=== PATIENT | female | born 1950 | race Caucasian/White ===

== ENCOUNTER 2018-02-05 16:04 | Emergency (ER) | payer MEDICARE, OTHER ==
[~2018-02-05] VITALS: Ht 165.1 cm; Wt 74.0 kg
[~2018-02-05 16:04] MED LIST: ASPI-1265 PO; CARV6.253 PO; DILT120C51 PO; FURO40TA4 PO; HYDR-4070 PO; ISOS30TA6 PO; MECL-111 PO; NITR0.4T48 SL; OMEP40CA37 PO; ONDA4TAB12 PO; ONDA8TAB6 PO; OXYB10TA4 PO; SOLI10TA2 PO; SYN0.0125T PO; WARF-65 PO
[2018-02-05 16:58] LABS: BASOPHILS # (AUTO) 0.1 X10'3 (0-0.2); BASOPHILS % (AUTO) 1.3 % (0-1); EOSINOPHILS # (AUTO) 0.4 X10'3 (0-0.9); EOSINOPHILS % (AUTO) 5.2 % (0-6); HEMATOCRIT 37.9 % (35.0-45.0); LYMPHOCYTES # (AUTO) 1.5 X10'3 (1.1-4.8); LYMPHOCYTES % (AUTO) 17.5 % (21-51); MEAN CORPUSCULAR HEMOGLOBIN 23.9 PG (27.0-31.0); MEAN CORPUSCULAR HGB CONC 31.7 % (33.0-36.5); MEAN CORPUSCULAR VOLUME 75.3 FL (78-98); MEAN PLATELET VOLUME 9.1 FL (7.4-10.4); MONOCYTES # (AUTO) 1.2 X10'3 (0-0.9); MONOCYTES % (AUTO) 14.1 % (2-12); NEUTROPHILS # (AUTO) 5.2 X10'3 (1.8-7.7); NEUTROPHILS % (AUTO) 61.9 % (42-75); PLATELET COUNT 277 X10'3 (140-440); RED BLOOD COUNT 5.03 X10'6 (4.20-5.60); RED CELL DISTRIBUTION WIDTH 16.1 % (11.5-14.5); WHITE BLOOD COUNT 8.4 X10'3 (4.5-11.0)
[2018-02-05 17:08] LABS: INR 1.1 INR; PARTIAL THROMBOPLASTIN TIME 27 SECONDS (22-32); PROTHROMBIN TIME 11.4 SECONDS (9.0-12.0)
[2018-02-05 17:14] LABS: ALANINE AMINOTRANSFERASE 18 U/L (12-78); ALBUMIN 3.2 G/DL (3.4-5.0); ALBUMIN/GLOBULIN RATIO 0.7 (1.1-1.5); ALKALINE PHOSPHATASE 109 IU/L (46-116); ANION GAP 9 (8-16); ASPARTATE AMINO TRANSFERASE 19 U/L (10-37); BILIRUBIN,TOTAL 0.4 MG/DL (0.1-1.0); BLOOD UREA NITROGEN 18 MG/DL (7-18); BUN/CREATININE RATIO 11.3 (6.6-38.0); CALCIUM 8.4 MG/DL (8.5-10.1); CHLORIDE 103 MMOL/L (99-107); GLUCOSE 107 MG/DL (70-104); POTASSIUM 4.5 MMOL/L (3.5-5.1); SODIUM 136 MMOL/L (135-145); TOTAL CARBON DIOXIDE 24.5 MMOL/L (24-32); TOTAL PROTEIN 7.5 G/DL (6.4-8.2); eGFR 32 ML/MIN
[2018-02-05 17:37] VITALS: BP 157/88
== END 2018-02-05 20:43 | disposition home or self-care (01) ==
LOC: ER 16:05
DX: R55 Syncope and collapse (principal); R42 Dizziness and giddiness; R53.1 Weakness; I25.10 Atherosclerotic heart disease of native coronary artery without angina pectoris; I11.0 Hypertensive heart disease with heart failure; I50.9 Heart failure, unspecified; E78.00 Pure hypercholesterolemia, unspecified; I25.2 Old myocardial infarction; J45.909 Unspecified asthma, uncomplicated; E03.9 Hypothyroidism, unspecified; Z86.718 Personal history of other venous thrombosis and embolism; Z86.73 Personal history of transient ischemic attack (TIA), and cerebral infarction without residual deficits; Z85.3 Personal history of malignant neoplasm of breast; Z98.61 Coronary angioplasty status; Z95.1 Presence of aortocoronary bypass graft; Z98.890 Other specified postprocedural states; Z95.0 Presence of cardiac pacemaker; Z88.1 Allergy status to other antibiotic agents; Z88.0 Allergy status to penicillin; Z88.8 Allergy status to other drugs, medicaments and biological substances; Z79.82 Long term (current) use of aspirin; Z79.01 Long term (current) use of anticoagulants; Z79.899 Other long term (current) drug therapy
CPT/HCPCS: 36415; 71045; 80053; 84484; 85025; 85610; 85730; 93005; 99285

== ENCOUNTER 2018-03-15 10:47 | Emergency (ER) | payer MEDICARE, OTHER ==
[~2018-03-15] VITALS: Ht 165.1 cm; Wt 155.0 kg
[2018-03-15 11:15] LABS: BASOPHILS % (AUTO) 0.3 % (0-1); EOSINOPHILS # (AUTO) 0.1 X10'3 (0-0.9); EOSINOPHILS % (AUTO) 1.2 % (0-6); HEMATOCRIT 37.6 % (35.0-45.0); HEMOGLOBIN 12.4 g/dl (12.0-16.0); LYMPHOCYTES % (AUTO) 15.3 % (21-51); MEAN CORPUSCULAR HEMOGLOBIN 24.8 PG (27.0-31.0); MEAN CORPUSCULAR HGB CONC 32.9 % (33.0-36.5); MEAN CORPUSCULAR VOLUME 75.3 FL (78-98); MEAN PLATELET VOLUME 8.5 FL (7.4-10.4); MONOCYTES # (AUTO) 1.4 X10'3 (0-0.9); MONOCYTES % (AUTO) 10.9 % (2-12); NEUTROPHILS # (AUTO) 9.3 X10'3 (1.8-7.7); NEUTROPHILS % (AUTO) 72.3 % (42-75); PLATELET COUNT 260 X10'3 (140-440); RED BLOOD COUNT 4.99 X10'6 (4.20-5.60); WHITE BLOOD COUNT 12.9 X10'3 (4.5-11.0)
[2018-03-15 11:25] LABS: INR 3.2 INR; PARTIAL THROMBOPLASTIN TIME 37 SECONDS (22-32); PROTHROMBIN TIME 32.2 SECONDS (9.0-12.0)
[2018-03-15 11:29] LABS: ALANINE AMINOTRANSFERASE 18 U/L (12-78); ALBUMIN 3.3 G/DL (3.4-5.0); ALBUMIN/GLOBULIN RATIO 0.8 (1.1-1.5); ALKALINE PHOSPHATASE 105 IU/L (46-116); ANION GAP 9 (8-16); ASPARTATE AMINO TRANSFERASE 10 U/L (10-37); BILIRUBIN,TOTAL 0.4 MG/DL (0.1-1.0); BLOOD UREA NITROGEN 28 MG/DL (7-18); BUN/CREATININE RATIO 21.5 (6.6-38.0); CALCIUM 8.4 MG/DL (8.5-10.1); CHLORIDE 105 MMOL/L (99-107); GLUCOSE 93 MG/DL (70-104); POTASSIUM 3.3 MMOL/L (3.5-5.1); SODIUM 139 MMOL/L (135-145); TOTAL CARBON DIOXIDE 25.1 MMOL/L (24-32); TOTAL PROTEIN 7.4 G/DL (6.4-8.2); eGFR 41 ML/MIN
[2018-03-15 11:36] LABS: PLATELET ESTIMATE NORMAL
[2018-03-15 11:37] LABS: ANISOCYTOSIS 2+
[2018-03-15] MEDS ORDERED: furosemide 10 MG/1 ML 10ml inj IV ONE (15:05)
[2018-03-15] MEDS ORDERED: potassium chloride 8mEq ER tablet PO ONE (15:05)
[2018-03-15 15:26] VITALS: BP 188/97
[2018-03-15] MEDS ORDERED: AZIT250T83 PO (15:40)
== END 2018-03-15 15:56 | disposition home or self-care (01) ==
LOC: ER 10:48
DX: R07.89 Other chest pain (principal); I11.0 Hypertensive heart disease with heart failure; I50.9 Heart failure, unspecified; I25.10 Atherosclerotic heart disease of native coronary artery without angina pectoris; E78.00 Pure hypercholesterolemia, unspecified; I25.2 Old myocardial infarction; E03.9 Hypothyroidism, unspecified; Z86.718 Personal history of other venous thrombosis and embolism; Z95.0 Presence of cardiac pacemaker; Z86.73 Personal history of transient ischemic attack (TIA), and cerebral infarction without residual deficits; Z95.1 Presence of aortocoronary bypass graft; J45.909 Unspecified asthma, uncomplicated; Z88.1 Allergy status to other antibiotic agents; Z88.0 Allergy status to penicillin; Z88.8 Allergy status to other drugs, medicaments and biological substances; Z79.82 Long term (current) use of aspirin
CPT/HCPCS: 36415; 71045; 80053; 83880; 84484; 85025; 85610; 85730; 93005; 96374; 99285; J1940

== ENCOUNTER 2018-05-27 05:16 | Inpatient (IN) | payer MEDICARE, OTHER ==
[~2018-05-27] VITALS: Ht 165.1 cm; Wt 70.9 kg
[2018-05-27 05:50] LABS: BASOPHILS % (AUTO) 0 % (0-1); EOSINOPHILS # (AUTO) 0.1 X10'3 (0-0.9); HEMATOCRIT 36.3 % (35.0-45.0); HEMOGLOBIN 11.7 g/dl (12.0-16.0); LYMPHOCYTES # (AUTO) 0.5 X10'3 (1.1-4.8); LYMPHOCYTES % (AUTO) 7.6 % (21-51); MEAN CORPUSCULAR HEMOGLOBIN 24.7 PG (27.0-31.0); MEAN CORPUSCULAR HGB CONC 32.2 % (33.0-36.5); MEAN CORPUSCULAR VOLUME 76.8 FL (78-98); MEAN PLATELET VOLUME 8.9 FL (7.4-10.4); MONOCYTES # (AUTO) 0.3 X10'3 (0-0.9); MONOCYTES % (AUTO) 4.1 % (2-12); NEUTROPHILS # (AUTO) 6.1 X10'3 (1.8-7.7); NEUTROPHILS % (AUTO) 87.3 % (42-75); PLATELET COUNT 216 X10'3 (140-440); RED BLOOD COUNT 4.72 X10'6 (4.20-5.60); RED CELL DISTRIBUTION WIDTH 17.8 % (11.5-14.5)
[2018-05-27 06:01] LABS: ALANINE AMINOTRANSFERASE 15 U/L (12-78); ALBUMIN 3.3 G/DL (3.4-5.0); ALBUMIN/GLOBULIN RATIO 0.8 (1.1-1.5); ALKALINE PHOSPHATASE 100 IU/L (46-116); ANION GAP 12 (8-16); ASPARTATE AMINO TRANSFERASE 14 U/L (10-37); BILIRUBIN,TOTAL 0.2 MG/DL (0.1-1.0); BLOOD UREA NITROGEN 35 MG/DL (7-18); BUN/CREATININE RATIO 19.7 (6.6-38.0); CALCIUM 9.1 MG/DL (8.5-10.1); CHLORIDE 105 MMOL/L (99-107); CREATININE 1.78 MG/DL (0.40-0.90); GLUCOSE 193 MG/DL (70-104); POTASSIUM 3.9 MMOL/L (3.5-5.1); SODIUM 138 MMOL/L (135-145); TOTAL CARBON DIOXIDE 21.2 MMOL/L (24-32); TOTAL PROTEIN 7.4 G/DL (6.4-8.2); eGFR 28 ML/MIN
[2018-05-27 06:10] LABS: INR 1.1 INR; PARTIAL THROMBOPLASTIN TIME 33 SECONDS (22-32); PROTHROMBIN TIME 11.3 SECONDS (9.0-12.0)
[2018-05-27] MEDS ORDERED: albuterol 2.5 mg/0.5ml nebule NEB ONE (06:20)
[2018-05-27] MEDS ORDERED: normal saline 1000ML IV soln IVB ONE (06:20)
[2018-05-27] MEDS ORDERED: methylPREDNISolone sod succ 125mg/2ml vial IV ONE (06:20)
[2018-05-27] MEDS ORDERED: albuterol 2.5 MG/3 ML nebule NEB ONE ×2 (06:55)
[2018-05-27] MEDS ORDERED: labetalol 20mg/4ml (5mg/ml) syringe IV ONE (07:35)
[2018-05-27] MEDS ORDERED: APIX5TAB3 PO (07:37)
[2018-05-27] MEDS ORDERED: ALBU8HFA PO (07:40)
[2018-05-27] MEDS ORDERED: PRED5TAB PO (07:40)
[2018-05-27] MEDS ORDERED: BECL7.3A INH (07:40)
[2018-05-27] MEDS ORDERED: LORazepam 2 mg/ml vial IV ONE (07:40)
[2018-05-27] MEDS ORDERED: magnesium Cl slow-release 64mg tablet PO PRN (08:00)
[2018-05-27] MEDS ORDERED: bisacodyl 10mg suppository rectal RC PRN (08:00)
[2018-05-27] MEDS ORDERED: magnesium hydroxide 30ml (MOM) UD suspension PO PRN (08:00)
[2018-05-27] MEDS ORDERED: potassium Cl 20 mEq SR tablet PO PRN ×2 (08:00)
[2018-05-27] MEDS ORDERED: ondansetron/PF 4mg/2ml inj IV PRN (08:00)
[2018-05-27] MEDS ORDERED: morphine 2 MG/ML inj. syringe IV PRN ×2 (08:00)
[2018-05-27] MEDS ORDERED: acetaminophen 325mg tablet PO PRN (08:00)
[2018-05-27] MEDS ORDERED: potassium Cl 40MEQ/NS 500ml 500 ML IV PRN ×2 (08:00)
[2018-05-27] MEDS: K and/or MAG REPLACEMENT MC SCH (08:00)
[2018-05-27] MEDS ORDERED: ondansetron 4mg rapidly disintigrating tab PO PRN (08:00)
[2018-05-27] MEDS ORDERED: magnesium 4gm in 100ml NS 100 ML IV PRN (08:00)
[2018-05-27] MEDS ORDERED: mag hydrox/Alum hydrox/simeth 30ml oral suspension PO PRN (08:00)
[2018-05-27] MEDS ORDERED: nitroGLYCERIN 0.4mg SUBLingual tab SL PRN (08:00)
[2018-05-27] MEDS ORDERED: hydrALAZINE 20mg/ml inj. IV PRN (08:05)
[2018-05-27] MEDS: BUDESONIDE 0.25 MG/2 ML AMPUL.NEB IH SCH ×2 (08:09→20:08)
[2018-05-27] MEDS ORDERED: albuterol 2.5 MG/3 ML nebule NEB PRN (08:10)
[2018-05-27] MEDS: aspirin 81mg tab.chew PO SCH (08:53)
[2018-05-27] MEDS: carvedilol 6.25mg tablet PO SCH ×2 (08:54→09:39)
[2018-05-27] MEDS: levoTHYROXINE 125mcg tablet PO SCH (08:54)
[2018-05-27] MEDS: isosorbide mononitrate 30mg tab.SR.24H PO SCH (08:54)
[2018-05-27] MEDS: furosemide 40mg tablet PO SCH (08:55)
[2018-05-27] MEDS: docusate sod 100mg capsule PO SCH ×2 (08:55→20:27)
[2018-05-27] MEDS: apixaban 5mg tablet PO SCH ×2 (08:56→20:27)
[2018-05-27] MEDS: doxycycline inj 100 MG in normal saline 100ml IV soln 100 ML IV SCH ×2 (09:04→20:30)
[2018-05-27] MEDS: diltiazem CD 120mg capsule (once-daily) PO SCH (09:43)
[2018-05-27] MEDS: ipratropium/albuterol 3ml nebule NEB SCH ×3 (11:00→23:20)
[2018-05-27 14:15] VITALS: BP 157/61
[2018-05-27] MEDS: methylPREDNISolone sod succ 125mg/2ml vial IV SCH ×2 (16:31→20:18)
[2018-05-27 18:00] VITALS: BP 145/62
[2018-05-27 22:00] VITALS: BP 129/45
[2018-05-28] MEDS: methylPREDNISolone sod succ 125mg/2ml vial IV SCH ×3 (02:31→16:17)
[2018-05-28] MEDS: ipratropium/albuterol 3ml nebule NEB SCH ×5 (03:21→22:46)
[2018-05-28 04:32] VITALS: BP 166/63
[2018-05-28 04:52] VITALS: BP 150/49
[2018-05-28 06:00] VITALS: BP 142/57
[2018-05-28] MEDS: BUDESONIDE 0.25 MG/2 ML AMPUL.NEB IH SCH ×2 (07:44→19:52)
[2018-05-28] MEDS: K and/or MAG REPLACEMENT MC SCH (08:00)
[2018-05-28 08:10] LABS: BASOPHILS % (AUTO) 0 % (0-1); EOSINOPHILS # (AUTO) 0.3 X10'3 (0-0.9); HEMATOCRIT 33.3 % (35.0-45.0); HEMOGLOBIN 10.9 g/dl (12.0-16.0); LYMPHOCYTES # (AUTO) 0.5 X10'3 (1.1-4.8); MEAN CORPUSCULAR HEMOGLOBIN 24.9 PG (27.0-31.0); MEAN CORPUSCULAR HGB CONC 32.7 % (33.0-36.5); MEAN CORPUSCULAR VOLUME 76.2 FL (78-98); MEAN PLATELET VOLUME 9.2 FL (7.4-10.4); MONOCYTES # (AUTO) 0.5 X10'3 (0-0.9); MONOCYTES % (AUTO) 3.2 % (2-12); NEUTROPHILS # (AUTO) 14.2 X10'3 (1.8-7.7); NEUTROPHILS % (AUTO) 91.8 % (42-75); PLATELET COUNT 195 X10'3 (140-440); RED BLOOD COUNT 4.37 X10'6 (4.20-5.60); RED CELL DISTRIBUTION WIDTH 17.5 % (11.5-14.5); WHITE BLOOD COUNT 15.4 X10'3 (4.5-11.0)
[2018-05-28 08:43] LABS: ALANINE AMINOTRANSFERASE 13 U/L (12-78); ALBUMIN/GLOBULIN RATIO 0.9 (1.1-1.5); ALKALINE PHOSPHATASE 82 IU/L (46-116); ANION GAP 12 (8-16); ASPARTATE AMINO TRANSFERASE 12 U/L (10-37); BILIRUBIN,TOTAL 0.3 MG/DL (0.1-1.0); BLOOD UREA NITROGEN 47 MG/DL (7-18); BUN/CREATININE RATIO 27.3 (6.6-38.0); CALCIUM 8.6 MG/DL (8.5-10.1); CHLORIDE 107 MMOL/L (99-107); CREATININE 1.72 MG/DL (0.40-0.90); GLUCOSE 224 MG/DL (70-104); MAGNESIUM 2.3 MG/DL (1.5-2.4); POTASSIUM 3.9 MMOL/L (3.5-5.1); SODIUM 139 MMOL/L (135-145); TOTAL CARBON DIOXIDE 20.4 MMOL/L (24-32); TOTAL PROTEIN 6.5 G/DL (6.4-8.2); eGFR 29 ML/MIN
[2018-05-28] MEDS: doxycycline inj 100 MG in normal saline 100ml IV soln 100 ML IV SCH ×2 (08:46→19:57)
[2018-05-28] MEDS: furosemide 40mg tablet PO SCH (08:47)
[2018-05-28] MEDS: isosorbide mononitrate 30mg tab.SR.24H PO SCH (08:47)
[2018-05-28] MEDS: apixaban 5mg tablet PO SCH ×2 (08:47→19:59)
[2018-05-28] MEDS: levoTHYROXINE 125mcg tablet PO SCH (08:47)
[2018-05-28] MEDS: carvedilol 6.25mg tablet PO SCH (08:47)
[2018-05-28] MEDS: docusate sod 100mg capsule PO SCH ×2 (08:47→19:59)
[2018-05-28] MEDS: diltiazem CD 120mg capsule (once-daily) PO SCH (08:48)
[2018-05-28] MEDS: aspirin 81mg tab.chew PO SCH (08:48)
[2018-05-28] MEDS: pantoprazole 40mg Tablet.DR PO SCH (08:48)
[2018-05-28 10:00] VITALS: BP 151/57
[2018-05-28] MEDS ORDERED: isosorbide mononitrate 30mg tab.SR.24H PO SCH (15:45)
[2018-05-28] MEDS ORDERED: benzocaine/menthol oral lozeng 1 EACH BOX MM PRN (17:35)
[2018-05-28] MEDS ORDERED: polyethylene glycol 3350 17gm powd pack PO PRN (17:35)
[2018-05-28 18:00] VITALS: BP 150/64
[2018-05-28] MEDS: carVEDilol 12.5mg tablet PO SCH (19:59)
[2018-05-28 22:00] VITALS: BP 144/53
[2018-05-29] VITALS (12 sets, daily range): BP systolic 136–169; BP diastolic 61–75
[2018-05-29] MEDS: methylPREDNISolone sod succ 125mg/2ml vial IV SCH ×2 (00:03→08:07)
[2018-05-29] MEDS: ipratropium/albuterol 3ml nebule NEB SCH ×6 (03:07→23:24)
[2018-05-29 05:44] LABS: BASOPHILS % (AUTO) 0 % (0-1); EOSINOPHILS # (AUTO) 0.2 X10'3 (0-0.9); EOSINOPHILS % (AUTO) 1.8 % (0-6); HEMATOCRIT 35.1 % (35.0-45.0); HEMOGLOBIN 11.3 g/dl (12.0-16.0); LYMPHOCYTES # (AUTO) 0.5 X10'3 (1.1-4.8); LYMPHOCYTES % (AUTO) 3.7 % (21-51); MEAN CORPUSCULAR HEMOGLOBIN 24.7 PG (27.0-31.0); MEAN CORPUSCULAR HGB CONC 32.3 % (33.0-36.5); MEAN CORPUSCULAR VOLUME 76.4 FL (78-98); MEAN PLATELET VOLUME 8.8 FL (7.4-10.4); MONOCYTES # (AUTO) 0.2 X10'3 (0-0.9); MONOCYTES % (AUTO) 1.5 % (2-12); NEUTROPHILS # (AUTO) 12.9 X10'3 (1.8-7.7); PLATELET COUNT 193 X10'3 (140-440); RED BLOOD COUNT 4.59 X10'6 (4.20-5.60); RED CELL DISTRIBUTION WIDTH 17.4 % (11.5-14.5); WHITE BLOOD COUNT 13.8 X10'3 (4.5-11.0)
[2018-05-29 06:04] LABS: ALANINE AMINOTRANSFERASE 13 U/L (12-78); ALBUMIN 2.9 G/DL (3.4-5.0); ALBUMIN/GLOBULIN RATIO 0.8 (1.1-1.5); ALKALINE PHOSPHATASE 79 IU/L (46-116); ANION GAP 10 (8-16); ASPARTATE AMINO TRANSFERASE 10 U/L (10-37); BILIRUBIN,TOTAL 0.3 MG/DL (0.1-1.0); BLOOD UREA NITROGEN 52 MG/DL (7-18); BUN/CREATININE RATIO 27.7 (6.6-38.0); CALCIUM 8.8 MG/DL (8.5-10.1); CHLORIDE 106 MMOL/L (99-107); CREATININE 1.88 MG/DL (0.40-0.90); GLUCOSE 180 MG/DL (70-104); MAGNESIUM 2.6 MG/DL (1.5-2.4); POTASSIUM 3.8 MMOL/L (3.5-5.1); SODIUM 139 MMOL/L (135-145); TOTAL CARBON DIOXIDE 23.5 MMOL/L (24-32); TOTAL PROTEIN 6.4 G/DL (6.4-8.2); eGFR 27 ML/MIN
[2018-05-29] MEDS: BUDESONIDE 0.25 MG/2 ML AMPUL.NEB IH SCH (07:07)
[2018-05-29] MEDS: carVEDilol 12.5mg tablet PO SCH ×2 (08:00→20:01)
[2018-05-29] MEDS: K and/or MAG REPLACEMENT MC SCH (08:00)
[2018-05-29] MEDS: isosorbide mononitrate 30mg tab.SR.24H PO SCH (08:00)
[2018-05-29] MEDS: docusate sod 100mg capsule PO SCH ×2 (08:07→20:00)
[2018-05-29] MEDS: aspirin 81mg tab.chew PO SCH (08:07)
[2018-05-29] MEDS: pantoprazole 40mg Tablet.DR PO SCH (08:07)
[2018-05-29] MEDS: levoTHYROXINE 125mcg tablet PO SCH (08:07)
[2018-05-29] MEDS: doxycycline inj 100 MG in normal saline 100ml IV soln 100 ML IV SCH ×2 (08:07→19:57)
[2018-05-29] MEDS: furosemide 40mg tablet PO SCH (08:08)
[2018-05-29] MEDS: apixaban 5mg tablet PO SCH ×2 (08:08→20:02)
[2018-05-29] MEDS: diltiazem CD 120mg capsule (once-daily) PO SCH (08:08)
[2018-05-29] MEDS ORDERED: regadenoson 0.4mg/5ml syringe IV ONE (10:35)
[2018-05-29] MEDS ORDERED: aminophylline 250mg/10ml inj. IV ONE (10:35)
[2018-05-29] MEDS ORDERED: aminophylline 250mg/10ml inj. IV PRN (10:36)
[2018-05-29] MEDS ORDERED: regadenoson 0.4mg/5ml syringe IV PRN (10:37)
[2018-05-29] MEDS: lactobacillus rhamnosus 10,000 MMU CELLS/CAPSULE PO SCH (20:02)
[2018-05-30] MEDS: ipratropium/albuterol 3ml nebule NEB SCH ×2 (03:00→08:27)
[2018-05-30 04:02] LABS: BASOPHILS % (AUTO) 0 % (0-1); EOSINOPHILS # (AUTO) 0.1 X10'3 (0-0.9); EOSINOPHILS % (AUTO) 1.1 % (0-6); HEMATOCRIT 37.8 % (35.0-45.0); HEMOGLOBIN 12.2 g/dl (12.0-16.0); LYMPHOCYTES # (AUTO) 0.5 X10'3 (1.1-4.8); LYMPHOCYTES % (AUTO) 4.7 % (21-51); MEAN CORPUSCULAR HEMOGLOBIN 24.5 PG (27.0-31.0); MEAN CORPUSCULAR HGB CONC 32.2 % (33.0-36.5); MEAN CORPUSCULAR VOLUME 76.1 FL (78-98); MONOCYTES # (AUTO) 0.4 X10'3 (0-0.9); MONOCYTES % (AUTO) 3.8 % (2-12); NEUTROPHILS # (AUTO) 9.1 X10'3 (1.8-7.7); NEUTROPHILS % (AUTO) 90.4 % (42-75); PLATELET COUNT 208 X10'3 (140-440); RED BLOOD COUNT 4.97 X10'6 (4.20-5.60); RED CELL DISTRIBUTION WIDTH 17.7 % (11.5-14.5); WHITE BLOOD COUNT 10.1 X10'3 (4.5-11.0)
[2018-05-30 04:11] LABS: ANION GAP 7 (8-16); BLOOD UREA NITROGEN 53 MG/DL (7-18); BUN/CREATININE RATIO 32.5 (6.6-38.0); CALCIUM 8.2 MG/DL (8.5-10.1); CHLORIDE 105 MMOL/L (99-107); CREATININE 1.63 MG/DL (0.40-0.90); GLUCOSE 166 MG/DL (70-104); MAGNESIUM 2.5 MG/DL (1.5-2.4); POTASSIUM 3.5 MMOL/L (3.5-5.1); SODIUM 140 MMOL/L (135-145); TOTAL CARBON DIOXIDE 27.7 MMOL/L (24-32); eGFR 31 ML/MIN
[2018-05-30 05:00] VITALS: BP 147/60
[2018-05-30] MEDS: levoTHYROXINE 125mcg tablet PO SCH (07:48)
[2018-05-30] MEDS: pantoprazole 40mg Tablet.DR PO SCH (07:48)
[2018-05-30] MEDS: apixaban 5mg tablet PO SCH (07:49)
[2018-05-30] MEDS: carVEDilol 12.5mg tablet PO SCH (07:49)
[2018-05-30] MEDS: aspirin 81mg tab.chew PO SCH (07:49)
[2018-05-30] MEDS: docusate sod 100mg capsule PO SCH (07:49)
[2018-05-30] MEDS: diltiazem CD 120mg capsule (once-daily) PO SCH (07:49)
[2018-05-30] MEDS: lactobacillus rhamnosus 10,000 MMU CELLS/CAPSULE PO SCH (07:49)
[2018-05-30 07:50] VITALS: BP 164/74
[2018-05-30] MEDS: isosorbide mononitrate 30mg tab.SR.24H PO SCH (07:50)
[2018-05-30] MEDS: furosemide 40mg tablet PO SCH (07:55)
[2018-05-30] MEDS: K and/or MAG REPLACEMENT MC SCH (07:57)
[2018-05-30] MEDS ORDERED: DOXYCYCLINE 100MG CAPSULE PO SCH (09:25)
[2018-05-30 10:00] VITALS: BP 143/61
[2018-05-30] MEDS ORDERED: PRED10TA23 PO (10:01)
[2018-05-30] MEDS ORDERED: DOXY-224 PO (10:01)
[2018-05-30] MEDS ORDERED: ISOS30TA6 PO (10:01)
[2018-05-30] MEDS ORDERED: CARV-50 PO (10:01)
== END 2018-05-30 11:38 | disposition home or self-care (01) | DRG 202 ==
LOC: ER 05:16 → ED HOLD 07:31 → EDBEDREQ 13:45 → ORTHO 4S 14:00
PROVIDERS: ADMIT Internal Medicine; ATTEND Hospitalist
PROC: 3E02340 Introduction of Influenza Vaccine into Muscle, Percutaneous Approach (ICD-10-PCS; principal; 2018-05-29)
PROC: 4A02XM4 Measurement of Cardiac Total Activity, External Approach (ICD-10-PCS; 2018-05-29)
PROC: 3E033HZ Introduction of Radioactive Substance into Peripheral Vein, Percutaneous Approach (ICD-10-PCS; 2018-05-29)
DX: J45.901 Unspecified asthma with (acute) exacerbation (principal); J44.0 Chronic obstructive pulmonary disease with (acute) lower respiratory infection; I13.0 Hypertensive heart and chronic kidney disease with heart failure and stage 1 through stage 4 chronic kidney disease, or unspecified chronic kidney disease; I50.32 Chronic diastolic (congestive) heart failure; N17.9 Acute kidney failure, unspecified; J44.1 Chronic obstructive pulmonary disease with (acute) exacerbation; E03.9 Hypothyroidism, unspecified; I73.9 Peripheral vascular disease, unspecified; E78.00 Pure hypercholesterolemia, unspecified; E78.5 Hyperlipidemia, unspecified; I25.10 Atherosclerotic heart disease of native coronary artery without angina pectoris; J20.9 Acute bronchitis, unspecified; N18.3 Chronic kidney disease, stage 3 (moderate); I25.2 Old myocardial infarction; Z95.0 Presence of cardiac pacemaker; Z95.5 Presence of coronary angioplasty implant and graft; Z23 Encounter for immunization; Z88.8 Allergy status to other drugs, medicaments and biological substances; Z88.0 Allergy status to penicillin; Z79.899 Other long term (current) drug therapy; Z79.01 Long term (current) use of anticoagulants; Z87.01 Personal history of pneumonia (recurrent); Z85.3 Personal history of malignant neoplasm of breast; Z86.711 Personal history of pulmonary embolism; Z86.718 Personal history of other venous thrombosis and embolism; Z86.73 Personal history of transient ischemic attack (TIA), and cerebral infarction without residual deficits; Z87.891 Personal history of nicotine dependence; Z82.3 Family history of stroke; Z82.49 Family history of ischemic heart disease and other diseases of the circulatory system
CPT/HCPCS: 36415; 71045; 71250; 78452; 80048; 80053; 83735; 83880; 84443; 84484; 85025; 85610; 85730; 87040; 87070; 93005; 93017; 93306; 94640; 94760; 96361; 96374; 99285; A9500; G0378; J2060; J2930; J3490; J7030; J7611

== ENCOUNTER 2018-09-30 11:15 | Outpatient (CLI) | payer MEDICARE, OTHER ==
[~2018-09-30 11:15] MED LIST changes: +ALBU8HFA PO; +APIX5TAB3 PO; +BECL7.3A INH; +CARV-50 PO; +DOXY-224 PO; -HYDR-4070 PO; -MECL-111 PO; -ONDA8TAB6 PO; -OXYB10TA4 PO; -SOLI10TA2 PO; -WARF-65 PO
[2018-09-30 12:39] LABS: ALBUMIN 3.2 G/DL (3.4-5.0); ANION GAP 8 (8-16); BLOOD UREA NITROGEN 26 MG/DL (7-18); BUN/CREATININE RATIO 19.5 (6.6-38.0); CALCIUM 9.2 MG/DL (8.5-10.1); CHLORIDE 107 MMOL/L (99-107); CREATININE 1.33 MG/DL (0.40-0.90); GLUCOSE 129 MG/DL (70-104); POTASSIUM 4.4 MMOL/L (3.5-5.1); SODIUM 140 MMOL/L (135-145); TOTAL CARBON DIOXIDE 25.5 MMOL/L (24-32); eGFR 39 ML/MIN
== END 2018-09-30 23:59 | disposition home or self-care (01) ==
LOC: LAB 11:15
PROVIDERS: ATTEND Internal Medicine Cardiovascular Disease
DX: R06.02 Shortness of breath (principal); I10 Essential (primary) hypertension; J45.909 Unspecified asthma, uncomplicated; Z87.891 Personal history of nicotine dependence
CPT/HCPCS: 36415; 80048; 83880

== ENCOUNTER 2018-10-14 03:29 | Inpatient (IN) | payer MEDICARE, OTHER ==
[~2018-10-14] VITALS: Ht 165.1 cm; Wt 77.4 kg
[2018-10-14] MEDS ORDERED: methylPREDNISolone sod succ 125mg/2ml vial IV ONE (03:35)
[2018-10-14] MEDS ORDERED: ipratropium/albuterol 3ml nebule NEB ONE (03:35)
[2018-10-14 04:02] LABS: BASOPHILS % (AUTO) 0.4 % (0-1); EOSINOPHILS % (AUTO) 0 % (0-6); HEMATOCRIT 36.6 % (35.0-45.0); HEMOGLOBIN 11.6 g/dl (12.0-16.0); LYMPHOCYTES # (AUTO) 0.5 X10'3 (1.1-4.8); LYMPHOCYTES % (AUTO) 5.6 % (21-51); MEAN CORPUSCULAR HEMOGLOBIN 24.7 PG (27.0-31.0); MEAN CORPUSCULAR HGB CONC 31.6 g/dL (33.0-36.5); MEAN CORPUSCULAR VOLUME 78.1 FL (78-98); MEAN PLATELET VOLUME 8.7 FL (7.4-10.4); MONOCYTES # (AUTO) 0.3 X10'3 (0-0.9); MONOCYTES % (AUTO) 2.9 % (2-12); NEUTROPHILS # (AUTO) 8.5 X10'3 (1.8-7.7); NEUTROPHILS % (AUTO) 91.1 % (42-75); PLATELET COUNT 204 X10'3 (140-440); RED BLOOD COUNT 4.69 X10'6 (4.20-5.60); RED CELL DISTRIBUTION WIDTH 18.1 % (11.5-14.5); WHITE BLOOD COUNT 9.3 X10'3 (4.5-11.0)
[2018-10-14 04:10] LABS: ALANINE AMINOTRANSFERASE 22 U/L (12-78); ALBUMIN 3.1 G/DL (3.4-5.0); ALBUMIN/GLOBULIN RATIO 0.9 (1.1-1.5); ALKALINE PHOSPHATASE 75 IU/L (46-116); ANION GAP 9 (8-16); ASPARTATE AMINO TRANSFERASE 14 U/L (10-37); BILIRUBIN,TOTAL 0.3 MG/DL (0.1-1.0); BLOOD UREA NITROGEN 27 MG/DL (7-18); BUN/CREATININE RATIO 23.9 (6.6-38.0); CALCIUM 8.7 MG/DL (8.5-10.1); CHLORIDE 107 MMOL/L (99-107); CREATININE 1.13 MG/DL (0.40-0.90); GLUCOSE 175 MG/DL (70-104); POTASSIUM 4.5 MMOL/L (3.5-5.1); SODIUM 139 MMOL/L (135-145); TOTAL CARBON DIOXIDE 22.8 MMOL/L (24-32); TOTAL PROTEIN 6.4 G/DL (6.4-8.2); eGFR 48 ML/MIN
[2018-10-14 04:13] LABS: PARTIAL THROMBOPLASTIN TIME 27 SECONDS (22-32)
[2018-10-14 04:17] LABS: MAGNESIUM 2.2 MG/DL (1.5-2.4)
[2018-10-14] MEDS ORDERED: azithromycin/NS 500mg/250ml 250 ML IV ONE (04:40)
[2018-10-14] MEDS ORDERED: HYDROcodone/acetaminophen 5mg/325mg tablet PO PRN (04:50)
[2018-10-14] MEDS ORDERED: magnesium 4gm in 100ml NS 100 ML IV PRN (04:50)
[2018-10-14] MEDS ORDERED: ondansetron/PF 4mg/2ml inj IV PRN (04:50)
[2018-10-14] MEDS ORDERED: magnesium Cl slow-release 64mg tablet PO PRN (04:50)
[2018-10-14] MEDS ORDERED: magnesium hydroxide 30ml (MOM) UD suspension PO PRN (04:50)
[2018-10-14] MEDS ORDERED: potassium Cl 40MEQ/NS 500ml 500 ML IV PRN ×2 (04:50)
[2018-10-14] MEDS ORDERED: magnesium 2GM in 50ml NS 50 ML IV PRN (04:50)
[2018-10-14] MEDS ORDERED: ipratropium/albuterol 3ml nebule NEB PRN (04:50)
[2018-10-14] MEDS ORDERED: HYDROcodone/acetaminophen 10/325mg tab PO PRN (04:50)
[2018-10-14] MEDS ORDERED: mag hydrox/Alum hydrox/simeth 30ml oral suspension PO PRN (04:50)
[2018-10-14] MEDS ORDERED: potassium Cl 20 mEq SR tablet PO PRN ×2 (04:50)
[2018-10-14] MEDS ORDERED: acetaminophen 325mg tablet PO PRN ×2 (04:50)
[2018-10-14] MEDS ORDERED: ISOS60TA4 PO (05:48)
[2018-10-14] MEDS ORDERED: PRAV20TA4 PO (05:52)
[2018-10-14] MEDS ORDERED: MIRA50TA PO (05:58)
[2018-10-14] MEDS ORDERED: PRIM250T48 (06:00)
[2018-10-14] MEDS ORDERED: PRIM50TA27 PO (07:33)
[2018-10-14] MEDS: ipratropium/albuterol 3ml nebule NEB SCH ×5 (07:52→23:36)
[2018-10-14] MEDS ORDERED: enoxaparin 40mg/0.4ml syringe SQ SCH (08:00)
[2018-10-14] MEDS: carVEDilol 12.5mg tablet PO SCH ×2 (08:05→20:59)
[2018-10-14] MEDS: aspirin 81mg tab.chew PO SCH (08:05)
[2018-10-14] MEDS: diltiazem CD 120mg capsule (once-daily) PO SCH (08:05)
[2018-10-14] MEDS: levoTHYROXINE 125mcg tablet PO SCH (08:05)
[2018-10-14] MEDS: methylPREDNISolone sod succ 125mg/2ml vial IV SCH ×3 (08:06→16:00)
[2018-10-14] MEDS: isosorbide mononitrate 30mg tab.SR.24H PO SCH (08:06)
[2018-10-14] MEDS: furosemide 40mg/4ml inj IV SCH ×2 (08:06→20:58)
[2018-10-14] MEDS: atorvastatin 10mg tablet PO SCH ×2 (08:08→21:00)
[2018-10-14] MEDS: K and/or MAG REPLACEMENT MC SCH (08:11)
[2018-10-14] MEDS: apixaban 5mg tablet PO SCH ×2 (09:46→21:00)
[2018-10-14] MEDS ORDERED: albuterol 2.5 MG/3 ML nebule NEB PRN (15:40)
[2018-10-14] MEDS ORDERED: hydrALAZINE 20mg/ml inj. IV PRN (15:45)
[2018-10-14 19:45] VITALS: BP 171/69
--- NOTE | 2018-10-14 19:45 | NUR ---
Received report from Prasad LINTON from ED. Patient brought up to floor via gurney. Patient able to transfer into bed with minimal help. Bed is locked & low, call light placed within reach.
[2018-10-14] MEDS ORDERED: temazepam 15mg capsule PO PRN (21:00)
[2018-10-14] MEDS: primidone 50mg tablet PO SCH (21:00)
[2018-10-14 22:00] VITALS: BP 204/74
[2018-10-15] MEDS: methylPREDNISolone sod succ 125mg/2ml vial IV SCH ×3 (00:11→17:52)
[2018-10-15 00:38] VITALS: BP 167/60
[2018-10-15] MEDS: ipratropium/albuterol 3ml nebule NEB SCH ×6 (03:36→23:01)
[2018-10-15 05:00] VITALS: BP 144/60
[2018-10-15] MEDS: azithromycin/NS 500mg/250ml 250 ML IV SCH (05:45)
--- NOTE | 2018-10-15 06:19 | NUR ---
Problems reprioritized. Patient report given, questions answered & plan of care reviewed with Lexi LINTON.
[2018-10-15 06:46] LABS: HEMATOCRIT 34.3 % (35.0-45.0); HEMOGLOBIN 11.3 g/dl (12.0-16.0); MEAN CORPUSCULAR HEMOGLOBIN 25.2 PG (27.0-31.0); MEAN CORPUSCULAR HGB CONC 32.9 g/dL (33.0-36.5); MEAN CORPUSCULAR VOLUME 76.5 FL (78-98); PLATELET COUNT 194 X10'3 (140-440); RED BLOOD COUNT 4.49 X10'6 (4.20-5.60); RED CELL DISTRIBUTION WIDTH 17.9 % (11.5-14.5)
[2018-10-15 06:59] LABS: ALBUMIN 2.9 G/DL (3.4-5.0); ANION GAP 9 (8-16); BLOOD UREA NITROGEN 44 MG/DL (7-18); BUN/CREATININE RATIO 27.8 (6.6-38.0); CALCIUM 8.7 MG/DL (8.5-10.1); CHLORIDE 103 MMOL/L (99-107); CREATININE 1.58 MG/DL (0.40-0.90); GLUCOSE 181 MG/DL (70-104); PHOSPHORUS 3.2 MG/DL (2.3-4.5); POTASSIUM 3.8 MMOL/L (3.5-5.1); SODIUM 138 MMOL/L (135-145); eGFR 32 ML/MIN
[2018-10-15] MEDS: K and/or MAG REPLACEMENT MC SCH (08:16)
[2018-10-15] MEDS: isosorbide mononitrate 30mg tab.SR.24H PO SCH (08:36)
[2018-10-15] MEDS: apixaban 5mg tablet PO SCH ×2 (08:37→19:58)
[2018-10-15] MEDS: diltiazem CD 120mg capsule (once-daily) PO SCH (08:37)
[2018-10-15] MEDS: levoTHYROXINE 125mcg tablet PO SCH (08:37)
[2018-10-15] MEDS: aspirin 81mg tab.chew PO SCH (08:37)
[2018-10-15] MEDS: carVEDilol 12.5mg tablet PO SCH ×2 (08:37→19:58)
[2018-10-15 10:00] VITALS: BP 151/62
[2018-10-15 18:00] VITALS: BP 132/55
--- NOTE | 2018-10-15 18:14 | NUR ---
Report to Janey LINTON
--- NOTE | 2018-10-15 18:35 | NUR ---
Patient in room ORTHO 4011. I have received report from DEVON LINTON and had the opportunity to ask questions and assume patient care.
[2018-10-15] MEDS: lactobacillus rhamnosus 10,000 MMU CELLS/CAPSULE PO SCH (19:58)
[2018-10-15] MEDS: atorvastatin 10mg tablet PO SCH (19:59)
[2018-10-15] MEDS: primidone 50mg tablet PO SCH (19:59)
[2018-10-15] MEDS ORDERED: furosemide 40mg tablet PO SCH (20:00)
[2018-10-15 22:00] VITALS: BP 155/64
[2018-10-16] MEDS: methylPREDNISolone sod succ 125mg/2ml vial IV SCH ×3 (00:21→18:57)
[2018-10-16] MEDS: ipratropium/albuterol 3ml nebule NEB SCH ×6 (03:00→23:49)
[2018-10-16 05:00] VITALS: BP 155/58
[2018-10-16 05:41] VITALS: BP 155/58
[2018-10-16 06:13] LABS: HEMOGLOBIN 11.4 g/dl (12.0-16.0); MEAN CORPUSCULAR HEMOGLOBIN 24.5 PG (27.0-31.0); MEAN CORPUSCULAR HGB CONC 31.7 g/dL (33.0-36.5); MEAN CORPUSCULAR VOLUME 77.4 FL (78-98); MEAN PLATELET VOLUME 8.8 FL (7.4-10.4); PLATELET COUNT 199 X10'3 (140-440); RED BLOOD COUNT 4.65 X10'6 (4.20-5.60); WHITE BLOOD COUNT 12.4 X10'3 (4.5-11.0)
[2018-10-16] MEDS: azithromycin/NS 500mg/250ml 250 ML IV SCH (06:26)
[2018-10-16 06:40] LABS: ALBUMIN 2.8 G/DL (3.4-5.0); ANION GAP 9 (8-16); BLOOD UREA NITROGEN 56 MG/DL (7-18); BUN/CREATININE RATIO 32.9 (6.6-38.0); CALCIUM 8.8 MG/DL (8.5-10.1); CHLORIDE 102 MMOL/L (99-107); GLUCOSE 205 MG/DL (70-104); MAGNESIUM 2.3 MG/DL (1.5-2.4); PHOSPHORUS 4.1 MG/DL (2.3-4.5); POTASSIUM 4.2 MMOL/L (3.5-5.1); SODIUM 136 MMOL/L (135-145); TOTAL CARBON DIOXIDE 25.4 MMOL/L (24-32); eGFR 30 ML/MIN
--- NOTE | 2018-10-16 06:44 | NUR ---
Problems reprioritized. Patient report given, questions answered & plan of care reviewed with DEVON LINTON.
[2018-10-16] MEDS: K and/or MAG REPLACEMENT MC SCH (08:00)
[2018-10-16] MEDS: carVEDilol 12.5mg tablet PO SCH ×2 (09:41→20:25)
[2018-10-16] MEDS: aspirin 81mg tab.chew PO SCH (09:41)
[2018-10-16] MEDS: isosorbide mononitrate 30mg tab.SR.24H PO SCH (09:41)
[2018-10-16] MEDS: diltiazem CD 120mg capsule (once-daily) PO SCH (09:41)
[2018-10-16] MEDS: levoTHYROXINE 125mcg tablet PO SCH (09:42)
[2018-10-16] MEDS: lactobacillus rhamnosus 10,000 MMU CELLS/CAPSULE PO SCH ×2 (09:42→20:25)
[2018-10-16] MEDS: apixaban 5mg tablet PO SCH ×2 (09:42→20:25)
[2018-10-16 10:00] VITALS: BP 174/68
[2018-10-16] MEDS ORDERED: fluticasone nasal spray 16GM bottle NS SCH (15:15)
[2018-10-16] MEDS ORDERED: salt irrigation nasal spray 45 ML SPRAY NS SCH (15:15)
[2018-10-16 18:00] VITALS: BP 156/76
--- NOTE | 2018-10-16 18:30 | NUR ---
PATIENT REPORT RECEIVED FROM DEVON LINTON.
[2018-10-16] MEDS: furosemide 40mg tablet PO SCH (20:25)
[2018-10-16] MEDS: primidone 50mg tablet PO SCH (20:25)
[2018-10-16] MEDS: atorvastatin 10mg tablet PO SCH (20:25)
[2018-10-16 22:00] VITALS: BP 162/62
[2018-10-17] MEDS: methylPREDNISolone sod succ 125mg/2ml vial IV SCH (02:52)
[2018-10-17] MEDS: ipratropium/albuterol 3ml nebule NEB SCH ×2 (03:00→09:46)
--- NOTE | 2018-10-17 05:26 | NUR ---
BP RECHECKED 154/60.
--- NOTE | 2018-10-17 06:34 | NUR ---
PATIENT REPORT GIVEN TO RAMANDEEP LINTON.
[2018-10-17 07:16] LABS: HEMATOCRIT 36.8 % (35.0-45.0); HEMOGLOBIN 11.7 g/dl (12.0-16.0); MEAN CORPUSCULAR HEMOGLOBIN 24.4 PG (27.0-31.0); MEAN CORPUSCULAR HGB CONC 31.8 g/dL (33.0-36.5); MEAN CORPUSCULAR VOLUME 76.8 FL (78-98); MEAN PLATELET VOLUME 9.2 FL (7.4-10.4); PLATELET COUNT 180 X10'3 (140-440); RED BLOOD COUNT 4.79 X10'6 (4.20-5.60); RED CELL DISTRIBUTION WIDTH 18.1 % (11.5-14.5); WHITE BLOOD COUNT 11.3 X10'3 (4.5-11.0)
[2018-10-17 07:28] LABS: ALBUMIN 2.8 G/DL (3.4-5.0); ANION GAP 8 (8-16); BLOOD UREA NITROGEN 57 MG/DL (7-18); BUN/CREATININE RATIO 36.3 (6.6-38.0); CALCIUM 8.3 MG/DL (8.5-10.1); CHLORIDE 102 MMOL/L (99-107); CREATININE 1.57 MG/DL (0.40-0.90); GLUCOSE 192 MG/DL (70-104); MAGNESIUM 2.4 MG/DL (1.5-2.4); PHOSPHORUS 4.1 MG/DL (2.3-4.5); POTASSIUM 3.5 MMOL/L (3.5-5.1); SODIUM 137 MMOL/L (135-145); TOTAL CARBON DIOXIDE 27.3 MMOL/L (24-32); eGFR 33 ML/MIN
[2018-10-17] MEDS ORDERED: azithromycin 250mg tablet PO SCH (08:00)
[2018-10-17] MEDS: lactobacillus rhamnosus 10,000 MMU CELLS/CAPSULE PO SCH (08:36)
[2018-10-17] MEDS: diltiazem CD 120mg capsule (once-daily) PO SCH (08:36)
[2018-10-17] MEDS: levoTHYROXINE 125mcg tablet PO SCH (08:37)
[2018-10-17] MEDS: carVEDilol 12.5mg tablet PO SCH (08:37)
[2018-10-17] MEDS: apixaban 5mg tablet PO SCH (08:37)
[2018-10-17] MEDS: furosemide 40mg tablet PO SCH (08:37)
[2018-10-17] MEDS: aspirin 81mg tab.chew PO SCH (08:37)
[2018-10-17] MEDS: isosorbide mononitrate 30mg tab.SR.24H PO SCH (08:38)
[2018-10-17] MEDS ORDERED: FLUT16SP18 NS (11:37)
[2018-10-17] MEDS ORDERED: PRED20TA PO (11:37)
--- NOTE | 2018-10-17 17:01 | NUR ---
Pt DC home at 1245 10/17/18. All protocol DC documents signed by pt & all copies per protocol sent home w/pt. Rx medications called into pharmacy of pt choice as necessary. pt escorted ALEXANDER in WC by [facility] staff member & pt family members. pt retrieved belongings from [facility]/signed for w/security, and Home medications were retrieved from pharmacy & given to pt to take home. pt safely transferred into personal vehicle home. pt thanked [facility] staff for her care.
== END 2018-10-17 12:45 | disposition home or self-care (01) | DRG 291 ==
LOC: ER 03:29 → ORTHO 4S 04:56 → CMPBEDREQ 20:17
PROVIDERS: ADMIT Family Medicine; ATTEND Family Medicine
DX: I13.0 Hypertensive heart and chronic kidney disease with heart failure and stage 1 through stage 4 chronic kidney disease, or unspecified chronic kidney disease (principal); I50.33 Acute on chronic diastolic (congestive) heart failure; J96.01 Acute respiratory failure with hypoxia; J45.901 Unspecified asthma with (acute) exacerbation; E03.9 Hypothyroidism, unspecified; E78.00 Pure hypercholesterolemia, unspecified; I25.10 Atherosclerotic heart disease of native coronary artery without angina pectoris; N18.9 Chronic kidney disease, unspecified; I25.2 Old myocardial infarction; Z95.1 Presence of aortocoronary bypass graft; Z88.6 Allergy status to analgesic agent; Z88.1 Allergy status to other antibiotic agents; Z88.0 Allergy status to penicillin; Z88.7 Allergy status to serum and vaccine; Z79.899 Other long term (current) drug therapy; Z79.82 Long term (current) use of aspirin; Z79.890 Hormone replacement therapy; Z79.51 Long term (current) use of inhaled steroids; Z79.01 Long term (current) use of anticoagulants; Z86.718 Personal history of other venous thrombosis and embolism; Z85.3 Personal history of malignant neoplasm of breast; Z86.711 Personal history of pulmonary embolism; Z86.73 Personal history of transient ischemic attack (TIA), and cerebral infarction without residual deficits
CPT/HCPCS: 36415; 71045; 80048; 80053; 83735; 83880; 84100; 84443; 84484; 85025; 85027; 85610; 85730; 87070; 93005; 93306; 94640; 94667; 94668; 94760; 96374; 99285; G0378; J0360; J0456; J1940; J2930

== ENCOUNTER 2018-10-25 06:18 | Inpatient (IN) | payer MEDICARE, OTHER ==
[~2018-10-25] VITALS: Ht 165.1 cm; Wt 87.3 kg
[~2018-10-25 06:18] MED LIST changes: -CARV6.253 PO; -DOXY-224 PO; +FLUT16SP18 NS; -ISOS30TA6 PO; +ISOS60TA4 PO; +MIRA50TA PO; +PRAV20TA4 PO; +PRED20TA PO; +PRIM50TA27 PO
[2018-10-25] MEDS ORDERED: ipratropium/albuterol 3ml nebule NEB ONE (06:40)
[2018-10-25 07:05] LABS: ABG BASE EXCESS 0.7 mmol/L (-2.0-3.0); ABG HCO3 25.2 mmol/L (22.0-26.0); ABG PCO2 (T) 39.6 mmHg (32.0-45.0); ABG PH (T) 7.421 (7.350-7.450); ABG PO2 (T) 117.2 mmHg (83-108); ALLEN'S TEST Positive; FCOHb 0.4 % (0.5-1.5); FLOW 2 L/min; FMetHb 0.2 % (0.3-1.12); FO2Hb 97.4 % (94-100); TOTAL HEMOGLOBIN 12.4 G/dl (12.0-16.0)
[2018-10-25 07:14] LABS: BASOPHILS % (AUTO) 0.3 % (0-1); EOSINOPHILS # (AUTO) 0.3 X10'3 (0-0.9); HEMATOCRIT 37.3 % (35.0-45.0); HEMOGLOBIN 11.8 g/dl (12.0-16.0); LYMPHOCYTES # (AUTO) 1.5 X10'3 (1.1-4.8); LYMPHOCYTES % (AUTO) 10.1 % (21-51); MEAN CORPUSCULAR HEMOGLOBIN 24.7 PG (27.0-31.0); MEAN CORPUSCULAR HGB CONC 31.6 g/dL (33.0-36.5); MEAN CORPUSCULAR VOLUME 78.3 FL (78-98); MEAN PLATELET VOLUME 8.8 FL (7.4-10.4); MONOCYTES # (AUTO) 1.7 X10'3 (0-0.9); MONOCYTES % (AUTO) 11.2 % (2-12); NEUTROPHILS # (AUTO) 11.5 X10'3 (1.8-7.7); NEUTROPHILS % (AUTO) 76.4 % (42-75); PLATELET COUNT 139 X10'3 (140-440); RED BLOOD COUNT 4.77 X10'6 (4.20-5.60); RED CELL DISTRIBUTION WIDTH 18.1 % (11.5-14.5); WHITE BLOOD COUNT 15.1 X10'3 (4.5-11.0)
[2018-10-25] MEDS ORDERED: furosemide 10 MG/1 ML 10ml inj IV ONE (07:15)
[2018-10-25] MEDS ORDERED: nitroGLYCERIN-Tridil 50MG/D5W 250 ML IV PRN (07:15)
[2018-10-25 07:27] LABS: PARTIAL THROMBOPLASTIN TIME 24 SECONDS (22-32)
[2018-10-25 07:32] LABS: ALANINE AMINOTRANSFERASE 21 U/L (12-78); ALBUMIN 2.7 G/DL (3.4-5.0); ALKALINE PHOSPHATASE 68 IU/L (46-116); ANION GAP 6 (8-16); ASPARTATE AMINO TRANSFERASE 12 U/L (10-37); BILIRUBIN,TOTAL 0.3 MG/DL (0.1-1.0); BLOOD UREA NITROGEN 37 MG/DL (7-18); BUN/CREATININE RATIO 28.5 (6.6-38.0); CALCIUM 8.1 MG/DL (8.5-10.1); CHLORIDE 105 MMOL/L (99-107); GLUCOSE 119 MG/DL (70-104); POTASSIUM 3.9 MMOL/L (3.5-5.1); SODIUM 137 MMOL/L (135-145); TOTAL CARBON DIOXIDE 25.6 MMOL/L (24-32); TOTAL PROTEIN 5.4 G/DL (6.4-8.2); eGFR 40 ML/MIN
[2018-10-25 11:33] LABS: CLARITY,URINE CLEAR (Clear); COLOR,URINE STRAW (Yellow); GLUCOSE, URINE NEGATIVE (Neg); KETONES,URINE NEGATIVE (Neg); LEUKOCYTE ESTERASE ,URINE NEGATIVE (Neg); NITRITES, URINE NEGATIVE (Neg); OCCULT BLOOD,URINE NEGATIVE (Neg); PH,URINE 7.5 (4.8-8.0); PROTEIN,URINE NEGATIVE (Neg); UA COLLECTION TYPE CLN CATCH MIDSTREAM; UROBILINOGEN,URINE 0.2 E.U/dL (0.2-1.0)
--- NOTE | 2018-10-25 11:39 | NUR ---
ATTEMPT TO CALL REPORT TO NURSE ON PCU. REPORT SHAILA ECKERT.
--- NOTE | 2018-10-25 12:21 | NUR ---
Extended PIV inserted to the right upper arm using ultrasound x 1 attempt. Colton well Addendum: 10/25/18 at 1222 by Yadira Mohamud RN Amended: Links added.
--- NOTE | 2018-10-25 12:30 | NUR ---
Patient arrived to 3014A via gurney. Patient ambulated from gurney to bed. Oriented patient to room, bed low and locked, call light in reach. Vital signs obtained. Will continue to monitor.
[2018-10-25 12:45] VITALS: BP 194/70
--- NOTE | 2018-10-25 12:46 | NUR ---
Paged Dr Ulloa"PAGER ID: [phone] MESSAGE: [phone] Mer [id number] Nael Mcdaniels patient is very hungry and has no diet order. Addendum: 10/25/18 at 1247 by Mer Solis RN Received order for HH Diet Addendum: 10/25/18 at 1842 by Mer Solis RN Edit incorrect patient Goldy Alvarado needed a new diet order
[2018-10-25] MEDS ORDERED: potassium Cl 20 mEq SR tablet PO PRN ×2 (12:55)
[2018-10-25] MEDS ORDERED: diphenhydrAMINE 25mg capsule PO PRN (12:55)
[2018-10-25] MEDS ORDERED: magnesium 2GM in 50ml NS 50 ML IV PRN (12:55)
[2018-10-25] MEDS ORDERED: potassium Cl 40MEQ/NS 500ml 500 ML IV PRN ×2 (12:55)
[2018-10-25] MEDS: K and/or MAG REPLACEMENT MC SCH (12:55)
[2018-10-25] MEDS ORDERED: HYDROcodone/acetaminophen 5mg/325mg tablet PO PRN (12:55)
[2018-10-25] MEDS ORDERED: HYDROcodone/acetaminophen 10/325mg tab PO PRN (12:55)
[2018-10-25] MEDS ORDERED: morphine 2 MG/ML inj. syringe IV PRN ×2 (12:55)
[2018-10-25] MEDS ORDERED: mag hydrox/Alum hydrox/simeth 30ml oral suspension PO PRN (12:55)
[2018-10-25] MEDS ORDERED: magnesium hydroxide 30ml (MOM) UD suspension PO PRN (12:55)
[2018-10-25] MEDS ORDERED: magnesium 4gm in 100ml NS 100 ML IV PRN (12:55)
[2018-10-25] MEDS ORDERED: magnesium Cl slow-release 64mg tablet PO PRN (12:55)
[2018-10-25] MEDS ORDERED: acetaminophen 325mg tablet PO PRN ×2 (12:55)
[2018-10-25] MEDS ORDERED: ondansetron/PF 4mg/2ml inj IV PRN (12:55)
[2018-10-25] MEDS: normal saline 1000ml 1,000 ML IV SCH (13:25)
[2018-10-25] MEDS: DOXYCYCLINE 100MG CAPSULE PO SCH ×2 (13:45→21:25)
[2018-10-25 15:00] VITALS: BP 157/61
[2018-10-25 18:00] VITALS: BP 160/82
--- NOTE | 2018-10-25 18:40 | NUR ---
Problems reprioritized. Patient report given, questions answered & plan of care reviewed with Thea LINTON.
--- NOTE | 2018-10-25 18:40 | NUR ---
Patient in room PCU 3014. I have received report from Mer LINTON and had the opportunity to ask questions and assume patient care.
[2018-10-25] MEDS: budesonide 0.5mg/2ml UD nebule IH SCH (20:01)
[2018-10-25] MEDS: ipratropium/albuterol 3ml nebule NEB SCH ×2 (20:01→23:12)
[2018-10-25] MEDS ORDERED: temazepam 15mg capsule PO PRN (21:00)
[2018-10-25] MEDS ORDERED: primidone 50mg tablet PO SCH (21:00)
[2018-10-25] MEDS: carVEDilol 12.5mg tablet PO SCH (21:24)
[2018-10-25] MEDS: apixaban 5mg tablet PO SCH (21:24)
[2018-10-25 22:00] VITALS: BP 119/51
[2018-10-26] MEDS: normal saline 1000ml 1,000 ML IV SCH (01:08)
[2018-10-26 02:00] VITALS: BP 151/58
[2018-10-26 05:06] LABS: ALANINE AMINOTRANSFERASE 17 U/L (12-78); ALBUMIN 2.3 G/DL (3.4-5.0); ALBUMIN/GLOBULIN RATIO 0.9 (1.1-1.5); ALKALINE PHOSPHATASE 68 IU/L (46-116); ANION GAP 5 (8-16); ASPARTATE AMINO TRANSFERASE 9 U/L (10-37); BILIRUBIN,TOTAL 0.4 MG/DL (0.1-1.0); BLOOD UREA NITROGEN 28 MG/DL (7-18); BUN/CREATININE RATIO 22.4 (6.6-38.0); CALCIUM 8.2 MG/DL (8.5-10.1); CHLORIDE 104 MMOL/L (99-107); CREATININE 1.25 MG/DL (0.40-0.90); GLUCOSE 130 MG/DL (70-104); PHOSPHORUS 2.6 MG/DL (2.3-4.5); POTASSIUM 4.8 MMOL/L (3.5-5.1); SODIUM 135 MMOL/L (135-145); TOTAL CARBON DIOXIDE 26.5 MMOL/L (24-32); eGFR 42 ML/MIN
[2018-10-26 05:09] LABS: BASOPHILS % (AUTO) 0.2 % (0-1); EOSINOPHILS # (AUTO) 0.3 X10'3 (0-0.9); EOSINOPHILS % (AUTO) 2.4 % (0-6); HEMATOCRIT 33.7 % (35.0-45.0); HEMOGLOBIN 10.7 g/dl (12.0-16.0); LYMPHOCYTES # (AUTO) 1.3 X10'3 (1.1-4.8); LYMPHOCYTES % (AUTO) 8.6 % (21-51); MEAN CORPUSCULAR HEMOGLOBIN 24.7 PG (27.0-31.0); MEAN CORPUSCULAR HGB CONC 31.6 g/dL (33.0-36.5); MEAN CORPUSCULAR VOLUME 78.3 FL (78-98); MEAN PLATELET VOLUME 8.7 FL (7.4-10.4); MONOCYTES # (AUTO) 1.8 X10'3 (0-0.9); MONOCYTES % (AUTO) 11.9 % (2-12); NEUTROPHILS # (AUTO) 11.3 X10'3 (1.8-7.7); NEUTROPHILS % (AUTO) 76.9 % (42-75); PLATELET COUNT 133 X10'3 (140-440); RED BLOOD COUNT 4.31 X10'6 (4.20-5.60); RED CELL DISTRIBUTION WIDTH 17.9 % (11.5-14.5); WHITE BLOOD COUNT 14.7 X10'3 (4.5-11.0)
[2018-10-26 06:00] VITALS: BP_SYST 150; BP_SYST 158; BP_SYST 159; BP_DIAS 53; BP_DIAS 61; BP_DIAS 63
--- NOTE | 2018-10-26 06:37 | NUR ---
Problems reprioritized. Patient report given, questions answered & plan of care reviewed with Lilia LINTON.
[2018-10-26 07:08] LABS: ANISOCYTOSIS 1+; MICROCYTOSIS 1+; PLATELET ESTIMATE DECREASED
[2018-10-26] MEDS: ipratropium/albuterol 3ml nebule NEB SCH ×3 (07:08→14:47)
[2018-10-26] MEDS: budesonide 0.5mg/2ml UD nebule IH SCH (07:08)
[2018-10-26 07:09] LABS: HYPOCHROMASIA 1+
[2018-10-26] MEDS: K and/or MAG REPLACEMENT MC SCH (07:49)
[2018-10-26] MEDS: DOXYCYCLINE 100MG CAPSULE PO SCH (07:59)
[2018-10-26] MEDS ORDERED: fluticasone nasal spray 16GM bottle NS SCH (08:00)
[2018-10-26] MEDS ORDERED: furosemide 40mg tablet PO SCH (08:00)
[2018-10-26] MEDS ORDERED: pravastatin 40mg tablet PO SCH (08:00)
[2018-10-26] MEDS ORDERED: levoTHYROXINE 125mcg tablet PO SCH (08:00)
[2018-10-26] MEDS ORDERED: diltiazem CD 120mg capsule (once-daily) PO SCH (08:00)
[2018-10-26] MEDS ORDERED: predniSONE 20 mg tablet PO SCH (08:00)
[2018-10-26] MEDS ORDERED: aspirin 81mg tab.chew PO SCH (08:00)
[2018-10-26] MEDS ORDERED: isosorbide mononitrate 30mg tab.SR.24H PO SCH (08:00)
[2018-10-26] MEDS: carVEDilol 12.5mg tablet PO SCH (08:01)
[2018-10-26] MEDS: apixaban 5mg tablet PO SCH (08:01)
[2018-10-26] MEDS ORDERED: DOXY-224 PO (09:28)
[2018-10-26] MEDS ORDERED: LEVO100T9 PO (09:28)
[2018-10-26 11:00] VITALS: BP 131/45
--- NOTE | 2018-10-26 14:46 | NUR ---
tremaine robb tx given patient going home Addendum: 10/26/18 at 1447 by Sylvia Claire RT Amended: Links added.
--- NOTE | 2018-10-26 15:14 | NUR ---
Patient discharged home with . New Walker with seat delivered to room. Extended IV taken out no signs of bleeding, Tele monitor with 02 reader removed. Meds called into pharmacy per pt's request. All belongings taken from room. Purse and keys returned to pt from admitting. Pt stable for discharge. Home health will follow.
== END 2018-10-26 15:15 | disposition home health service (06) | DRG 291 ==
LOC: ER 06:19 → PCU 3S 12:31 → CMPBEDREQ 19:49
PROVIDERS: ADMIT Family Medicine; ATTEND Family Medicine
DX: I11.0 Hypertensive heart disease with heart failure (principal); J18.9 Pneumonia, unspecified organism; J96.91 Respiratory failure, unspecified with hypoxia; J98.11 Atelectasis; I69.354 Hemiplegia and hemiparesis following cerebral infarction affecting left non-dominant side; I50.33 Acute on chronic diastolic (congestive) heart failure; I48.0 Paroxysmal atrial fibrillation; J44.9 Chronic obstructive pulmonary disease, unspecified; E03.9 Hypothyroidism, unspecified; E78.00 Pure hypercholesterolemia, unspecified; E78.5 Hyperlipidemia, unspecified; F41.9 Anxiety disorder, unspecified; D72.829 Elevated white blood cell count, unspecified; I25.10 Atherosclerotic heart disease of native coronary artery without angina pectoris; T38.0X5A Adverse effect of glucocorticoids and synthetic analogues, initial encounter; I25.2 Old myocardial infarction; Z95.0 Presence of cardiac pacemaker; Z95.1 Presence of aortocoronary bypass graft; Z79.01 Long term (current) use of anticoagulants; Z79.890 Hormone replacement therapy; Z79.899 Other long term (current) drug therapy; Z88.0 Allergy status to penicillin; Z88.1 Allergy status to other antibiotic agents; Z86.718 Personal history of other venous thrombosis and embolism; Z85.3 Personal history of malignant neoplasm of breast; Z87.891 Personal history of nicotine dependence; Z82.3 Family history of stroke; Z82.49 Family history of ischemic heart disease and other diseases of the circulatory system
CPT/HCPCS: 36415; 36600; 71045; 71275; 80053; 81003; 82803; 83735; 83880; 84100; 84145; 84443; 84484; 85018; 85025; 85610; 85730; 87070; 93005; 94640; 94760; 97116; 97162; 97530; 99285; G0378; J2405; J7030; J7512; J7626

== ENCOUNTER 2019-01-17 22:10 | Inpatient (IN) | payer MEDICARE, OTHER ==
[~2019-01-17] VITALS: Ht 165.1 cm; Wt 78.3 kg
[~2019-01-17 22:10] MED LIST changes: +LEVO100T9 PO; +LEVO500T2 PO; -NITR0.4T48 SL; +NYSPWD TP; -OMEP40CA37 PO; -ONDA4TAB12 PO; -PRED20TA PO; -SYN0.0125T PO
[2019-01-17 23:03] LABS: BASOPHILS % (AUTO) 0.3 % (0-1); EOSINOPHILS # (AUTO) 0.6 X10'3 (0-0.9); EOSINOPHILS % (AUTO) 5.7 % (0-6); HEMATOCRIT 36.8 % (35.0-45.0); HEMOGLOBIN 11.8 g/dl (12.0-16.0); LYMPHOCYTES # (AUTO) 1.3 X10'3 (1.1-4.8); MEAN CORPUSCULAR HGB CONC 32.2 g/dL (33.0-36.5); MEAN CORPUSCULAR VOLUME 77.7 FL (78-98); MEAN PLATELET VOLUME 8.6 FL (7.4-10.4); MONOCYTES # (AUTO) 2.6 X10'3 (0-0.9); MONOCYTES % (AUTO) 26.1 % (2-12); NEUTROPHILS # (AUTO) 5.5 X10'3 (1.8-7.7); NEUTROPHILS % (AUTO) 54.9 % (42-75); PLATELET COUNT 230 X10'3 (140-440); RED BLOOD COUNT 4.74 X10'6 (4.20-5.60); RED CELL DISTRIBUTION WIDTH 17.7 % (11.5-14.5)
[2019-01-17 23:12] LABS: ALANINE AMINOTRANSFERASE 20 U/L (12-78); ALBUMIN 2.9 G/DL (3.4-5.0); ALBUMIN/GLOBULIN RATIO 0.9 (1.1-1.5); ALKALINE PHOSPHATASE 74 IU/L (46-116); ANION GAP 10 (8-16); ASPARTATE AMINO TRANSFERASE 9 U/L (10-37); BILIRUBIN,TOTAL 0.3 MG/DL (0.1-1.0); BLOOD UREA NITROGEN 24 MG/DL (7-18); BUN/CREATININE RATIO 12.3 (6.6-38.0); CALCIUM 8.5 MG/DL (8.5-10.1); CHLORIDE 104 MMOL/L (99-107); CREATININE 1.95 MG/DL (0.40-0.90); GLUCOSE 158 MG/DL (70-104); POTASSIUM 4.4 MMOL/L (3.5-5.1); SODIUM 136 MMOL/L (135-145); TOTAL PROTEIN 6.3 G/DL (6.4-8.2); eGFR 25 ML/MIN
[2019-01-17 23:17] LABS: PARTIAL THROMBOPLASTIN TIME 33 SECONDS (22-32)
[2019-01-17 23:24] LABS: ANISOCYTOSIS 1+; MICROCYTOSIS 1+; PLATELET ESTIMATE NORMAL; TOTAL CELLS COUNTED 100
[2019-01-18] MEDS ORDERED: ipratropium/albuterol 3ml nebule NEB ONE ×2 (01:05→02:15)
[2019-01-18 02:36] LABS: ABG BASE EXCESS -2.6 mmol/L (-2.0-3.0); ABG HCO3 20.8 mmol/L (22.0-26.0); ABG OXYGEN SATURATION 94.4 % (95-98); ABG PCO2 (T) 31.1 mmHg (32.0-45.0); ABG PH (T) 7.441 (7.350-7.450); ABG PO2 (T) 69.8 mmHg (83-108); ALLEN'S TEST Positive; FCOHb 0.6 % (0.5-1.5); FO2Hb 93.8 % (94-100); PATIENT TEMPERATURE 36.7; TOTAL HEMOGLOBIN 12.3 G/dl (12.0-16.0)
[2019-01-18] MEDS ORDERED: mag hydrox/Alum hydrox/simeth 30ml oral suspension PO PRN (04:00)
[2019-01-18] MEDS ORDERED: magnesium Cl slow-release 64mg tablet PO PRN (04:00)
[2019-01-18] MEDS ORDERED: magnesium 4gm in 100ml NS 100 ML IV PRN (04:00)
[2019-01-18] MEDS ORDERED: potassium Cl 20 mEq SR tablet PO PRN ×2 (04:00)
[2019-01-18] MEDS ORDERED: acetaminophen 325mg tablet PO PRN (04:00)
[2019-01-18] MEDS ORDERED: magnesium 2GM in 50ml NS 50 ML IV PRN (04:00)
[2019-01-18] MEDS ORDERED: potassium CL 10mEq/100ml bag 100 ML IV PRN ×2 (04:00)
[2019-01-18] MEDS: methylPREDNISolone sod succ 125mg/2ml vial IV SCH ×4 (04:47→23:59)
--- NOTE | 2019-01-18 05:06 | NUR ---
I have received report from Manny LINTON in the ED and had the opportunity to ask questions and awaiting arrival of patient to the PCU unit room 3020T.
--- NOTE | 2019-01-18 05:15 | NUR ---
Patient arrived to the PCU unit at this time into room 3024A. She is alert and oriented and able to make her needs known. She ambulated from the gurney to the bed with standby assist. Vitals are stable. She is on room air. Two RN skin check performed. She has a wet cough but states she is not clearing any mucous. Safety precautions in place. Call light and items in reach. Will continue to monitor.
[2019-01-18 05:20] VITALS: BP 140/68
[2019-01-18 06:00] VITALS: BP 123/57
--- NOTE | 2019-01-18 06:28 | NUR ---
Problems reprioritized. Patient report given, questions answered & plan of care reviewed with Agnes Sherman.
--- NOTE | 2019-01-18 06:37 | NUR ---
Patient in room PCU 3024. I have received report from SHAILA Evans and had the opportunity to ask questions and assume patient care. Patient awake in bed and has no complaints at this time. All immediate needs met. Will continue to monitor.
--- NOTE | 2019-01-18 06:39 | NUR ---
Patient in room PCU 3024. I have received report from Cristina LINTON and had the opportunity to ask questions and assume patient care. Patient is in bed resting, all needs met at this time. will continue to monitor.
[2019-01-18] MEDS: K and/or MAG REPLACEMENT MC SCH (07:19)
[2019-01-18] MEDS: fluticasone nasal spray 16GM bottle NS SCH (07:20)
[2019-01-18] MEDS: aspirin 81mg tablet.DR PO SCH (07:21)
[2019-01-18] MEDS: montelukast 10mg tablet PO SCH (07:21)
[2019-01-18] MEDS: carVEDilol 12.5mg tablet PO SCH ×2 (07:21→19:57)
[2019-01-18] MEDS: apixaban 5mg tablet PO SCH ×2 (07:22→19:57)
[2019-01-18] MEDS ORDERED: BUME1TAB8 PO (09:16)
[2019-01-18] MEDS ORDERED: IPRA3AMP9 IH (09:22)
[2019-01-18] MEDS ORDERED: CARV-50 PO (09:24)
[2019-01-18] MEDS ORDERED: FLUT16SP2 BOTHNARES (09:25)
[2019-01-18] MEDS ORDERED: LEVO100T PO (09:25)
[2019-01-18] MEDS: budesonide 0.5mg/2ml UD nebule IH SCH ×2 (09:39→19:36)
[2019-01-18] MEDS: ipratropium/albuterol 3ml nebule NEB SCH ×3 (09:39→19:36)
[2019-01-18 11:00] VITALS: BP 174/89
--- NOTE | 2019-01-18 11:47 | NUR ---
PAGER ID: [phone] MESSAGE: [id number] Jneny Winslow: YUNIOR VEGA 172/92, received Coreg 12.5mg @ 0800, thank you. Meka Fair1
[2019-01-18 15:00] VITALS: BP 150/73
--- NOTE | 2019-01-18 18:21 | NUR ---
Patient in room PCU 3024. I have received report from Agnes LINTON and Meka LINTON and had the opportunity to ask questions and assume patient care.
--- NOTE | 2019-01-18 18:21 | NUR ---
Problems reprioritized. Patient report given, questions answered & plan of care reviewed with Cristina LINTON and Amanda LINTON.
--- NOTE | 2019-01-18 18:21 | NUR ---
Received orders from Dr Nunez to continue home med Bumex 1 mg daily to start on 01/19/19.
--- NOTE | 2019-01-18 18:42 | NUR ---
Orientee documentation: I have reviewed and agree with all interventions, assessments performed and documented by SHAILA Ackerman. [place]ee Medication Administration: For this medication-pass time frame, all medication were reviewed, dispensed, administered and documented per hospital policy by SHAILA Ackerman.
--- NOTE | 2019-01-18 18:42 | NUR ---
Problems reprioritized. Patient report given, questions answered & plan of care reviewed with Aaron LINTON. Patient stable at transfer of care.
[2019-01-18 19:00] VITALS: BP 145/77
[2019-01-18 22:00] VITALS: BP 144/64
[2019-01-19 02:00] VITALS: BP 151/61
--- NOTE | 2019-01-19 05:44 | NUR ---
Orientee documentation: I have reviewed and agree with all interventions, assessments performed and documented by Amanda LINTON. Orientee Medication Administration: For this medication-pass time frame, all medication were reviewed, dispensed, administered and documented per hospital policy by Amanda LINTON.
[2019-01-19 05:49] LABS: BASOPHILS % (AUTO) 0.1 % (0-1); EOSINOPHILS % (AUTO) 0 % (0-6); HEMATOCRIT 36.9 % (35.0-45.0); HEMOGLOBIN 11.9 g/dl (12.0-16.0); LYMPHOCYTES # (AUTO) 0.7 X10'3 (1.1-4.8); LYMPHOCYTES % (AUTO) 7.9 % (21-51); MEAN CORPUSCULAR HEMOGLOBIN 25.1 PG (27.0-31.0); MEAN CORPUSCULAR HGB CONC 32.2 g/dL (33.0-36.5); MEAN CORPUSCULAR VOLUME 77.9 FL (78-98); MEAN PLATELET VOLUME 8.8 FL (7.4-10.4); MONOCYTES # (AUTO) 0.6 X10'3 (0-0.9); MONOCYTES % (AUTO) 5.9 % (2-12); NEUTROPHILS # (AUTO) 8.1 X10'3 (1.8-7.7); NEUTROPHILS % (AUTO) 86.1 % (42-75); PLATELET COUNT 233 X10'3 (140-440); RED BLOOD COUNT 4.74 X10'6 (4.20-5.60); RED CELL DISTRIBUTION WIDTH 18.1 % (11.5-14.5); WHITE BLOOD COUNT 9.4 X10'3 (4.5-11.0)
[2019-01-19 06:03] LABS: ALANINE AMINOTRANSFERASE 19 U/L (12-78); ALBUMIN 2.9 G/DL (3.4-5.0); ALBUMIN/GLOBULIN RATIO 0.8 (1.1-1.5); ALKALINE PHOSPHATASE 74 IU/L (46-116); ANION GAP 13 (8-16); ASPARTATE AMINO TRANSFERASE 12 U/L (10-37); BILIRUBIN,TOTAL 0.3 MG/DL (0.1-1.0); BLOOD UREA NITROGEN 29 MG/DL (7-18); BUN/CREATININE RATIO 20.6 (6.6-38.0); CALCIUM 9.2 MG/DL (8.5-10.1); CHLORIDE 105 MMOL/L (99-107); CHOL/HDL RATIO 4.7 (0.00-4.99); CHOLESTEROL 188 MG/DL (0-200); CREATININE 1.41 MG/DL (0.40-0.90); GLUCOSE 208 MG/DL (70-104); HDL CHOLESTEROL 40 MG/DL (35-60); LDL CHOLESTEROL 134 MG/DL (50-100); MAGNESIUM 2.4 MG/DL (1.5-2.4); POTASSIUM 4.4 MMOL/L (3.5-5.1); SODIUM 140 MMOL/L (135-145); TOTAL CARBON DIOXIDE 22.2 MMOL/L (24-32); TOTAL PROTEIN 6.5 G/DL (6.4-8.2); TRIGLYCERIDES 85 MG/DL (20-135); eGFR 37 ML/MIN
--- NOTE | 2019-01-19 06:08 | NUR ---
Patient in room PCU 3024. I have received report from Cristina LINTON and Amanda LINTON and had the opportunity to ask questions and assume patient care. Patient in bed resting, all needs met at this time. will continue to monitor.
--- NOTE | 2019-01-19 06:15 | NUR ---
PAGER ID: [phone] MESSAGE: [id number] Jenny Winslow: BP 185/78 has scheduled coreg 12.5mg and bumex 1 mg @ 0800 no PRN BP med orders. Please advise. Thanks Meka [phone]
[2019-01-19] MEDS ORDERED: hyDRALAzine 10mg tablet PO ONE (06:20)
--- NOTE | 2019-01-19 06:22 | NUR ---
Received orders for Hydralazine 10mg one time now for elevated BP from Dr. Thompson.
--- NOTE | 2019-01-19 06:30 | NUR ---
Problems reprioritized. Patient report given, questions answered & plan of care reviewed with Agnes LINTON.
--- NOTE | 2019-01-19 06:39 | NUR ---
Patient in room PCU 3024. I have received report from Aaron LINTON and had the opportunity to ask questions and assume patient care. Patient awake in bed. No complaints at this time. Will continue to monitor.
[2019-01-19] MEDS ORDERED: hydrALAZINE 20mg/ml inj. IV ONE (06:40)
[2019-01-19 07:00] VITALS: BP 185/78
--- NOTE | 2019-01-19 07:10 | NUR ---
Pt c/o of chest pain now, stat EKG called
--- NOTE | 2019-01-19 07:15 | NUR ---
PAGER ID: [phone] MESSAGE: [id number] Jenny Winslow: Pt c/o of new onset of Bilateral arm pain, no c/o chest pain at this time, morning BP 185/[address] vidales for 10mg IV Hydralazine given, BP is 153/54 now, Do you want to order EKG? Meka [phone].
--- NOTE | 2019-01-19 07:25 | NUR ---
Stat EKG done and read by ED physician within 10mins per protocol, ED Physician Dr. Yuan states it is not a STEMI but refused to sign EKG, informed charge nurse.
--- NOTE | 2019-01-19 07:28 | NUR ---
Ekg reviewed by Madie Miguel FACILITIES TECHNICIAN and ordered PRN SL nitro
[2019-01-19] MEDS: nitroGLYCERIN 0.4mg SUBLingual tab SL PRN ×2 (07:32→07:38)
[2019-01-19] MEDS: K and/or MAG REPLACEMENT MC SCH (08:00)
--- NOTE | 2019-01-19 08:04 | NUR ---
Paged Dr. Peng: PAGER ID: [phone] MESSAGE: Agnes U 1997. RE: Jenny Winslow [id number]. FYI - stat EKG done. Negative for STEMI. Madie Miguel also following patient and ordered SL nitro. Thank you.
[2019-01-19] MEDS: ipratropium/albuterol 3ml nebule NEB SCH ×3 (08:10→20:17)
[2019-01-19] MEDS: budesonide 0.5mg/2ml UD nebule IH SCH ×2 (08:11→20:18)
[2019-01-19] MEDS: fluticasone nasal spray 16GM bottle NS SCH (08:39)
[2019-01-19] MEDS: apixaban 5mg tablet PO SCH ×2 (08:40→21:01)
[2019-01-19] MEDS: methylPREDNISolone sod succ 125mg/2ml vial IV SCH ×2 (08:40→15:55)
[2019-01-19] MEDS: bumetanide 1mg tablet PO SCH (08:40)
[2019-01-19] MEDS: carVEDilol 12.5mg tablet PO SCH ×2 (08:40→21:01)
[2019-01-19] MEDS: montelukast 10mg tablet PO SCH (08:40)
[2019-01-19] MEDS: aspirin 81mg tablet.DR PO SCH (08:40)
[2019-01-19] MEDS: diltiazem CD 120mg capsule (once-daily) PO SCH (09:09)
[2019-01-19] MEDS: isosorbide mononitrate 30mg tab.SR.24H PO SCH (09:09)
[2019-01-19 11:00] VITALS: BP 157/65
--- NOTE | 2019-01-19 13:29 | NUR ---
O2 Sat at rest on room air: 96% If below 89%: Recovery O2 Sat at rest on ___LPM:___%:___% via (mask/nasal cannula, etc..) No further documentation is necessary. If O2 Sat did not drop below 89% on room air,ambulate patient on room air. O2 Sat while ambulating on room air: 94% Recovery O2 Sat while ambulating on ___LPM:___% No further documentation is necessary. If patient does not drop below 89% while ambulating, he/she does not qualify for home O2.
[2019-01-19 15:00] VITALS: BP 129/61
--- NOTE | 2019-01-19 18:39 | NUR ---
Problems reprioritized. Patient report given, questions answered & plan of care reviewed with Shanita LINTON. Patient stable at transfer of care.
--- NOTE | 2019-01-19 18:46 | NUR ---
Patient in room PCU 3024. I have received report from Agnes LINTON and Meka LINTON and had the opportunity to ask questions and assume patient care.
[2019-01-19 19:00] VITALS: BP 121/64
[2019-01-19 23:00] VITALS: BP 138/56
[2019-01-20] VITALS (8 sets, daily range): BP systolic 129–157; BP diastolic 55–73
[2019-01-20] MEDS: methylPREDNISolone sod succ 125mg/2ml vial IV SCH ×3 (00:36→16:33)
[2019-01-20 05:57] LABS: BASOPHILS % (AUTO) 0.1 % (0-1); EOSINOPHILS % (AUTO) 0 % (0-6); HEMATOCRIT 35.3 % (35.0-45.0); HEMOGLOBIN 11.3 g/dl (12.0-16.0); LYMPHOCYTES # (AUTO) 0.6 X10'3 (1.1-4.8); LYMPHOCYTES % (AUTO) 3.2 % (21-51); MEAN CORPUSCULAR HEMOGLOBIN 24.9 PG (27.0-31.0); MEAN CORPUSCULAR HGB CONC 31.9 g/dL (33.0-36.5); MEAN CORPUSCULAR VOLUME 77.9 FL (78-98); MEAN PLATELET VOLUME 8.6 FL (7.4-10.4); MONOCYTES # (AUTO) 0.5 X10'3 (0-0.9); MONOCYTES % (AUTO) 2.9 % (2-12); NEUTROPHILS # (AUTO) 17.7 X10'3 (1.8-7.7); NEUTROPHILS % (AUTO) 93.8 % (42-75); PLATELET COUNT 250 X10'3 (140-440); RED BLOOD COUNT 4.53 X10'6 (4.20-5.60); WHITE BLOOD COUNT 18.8 X10'3 (4.5-11.0)
[2019-01-20 06:03] LABS: ALANINE AMINOTRANSFERASE 16 U/L (12-78); ALBUMIN 2.8 G/DL (3.4-5.0); ALBUMIN/GLOBULIN RATIO 0.9 (1.1-1.5); ALKALINE PHOSPHATASE 65 IU/L (46-116); ANION GAP 11 (8-16); ASPARTATE AMINO TRANSFERASE 7 U/L (10-37); BILIRUBIN,TOTAL 0.2 MG/DL (0.1-1.0); BLOOD UREA NITROGEN 50 MG/DL (7-18); BUN/CREATININE RATIO 28.1 (6.6-38.0); CALCIUM 8.5 MG/DL (8.5-10.1); CHLORIDE 103 MMOL/L (99-107); CREATININE 1.78 MG/DL (0.40-0.90); GLUCOSE 210 MG/DL (70-104); MAGNESIUM 2.3 MG/DL (1.5-2.4); POTASSIUM 4.1 MMOL/L (3.5-5.1); SODIUM 136 MMOL/L (135-145); TOTAL CARBON DIOXIDE 22.2 MMOL/L (24-32); eGFR 28 ML/MIN
--- NOTE | 2019-01-20 06:30 | NUR ---
Patient in room PCU 3024. I have received report from SHAILA Diehl and had the opportunity to ask questions and assume patient care.
--- NOTE | 2019-01-20 06:45 | NUR ---
Problems reprioritized. Patient report given, questions answered & plan of care reviewed with Yamilex LINTON and Lexi LINTON.
--- NOTE | 2019-01-20 07:15 | NUR ---
Pt complaining of not receiving respiratory treatment after asking "since 5:30 this morning". This RN found pt in bed at 0630 with eyes closed, in no apparent distress. Will continue to monitor.
--- NOTE | 2019-01-20 07:23 | NUR ---
Paged RT for treatment.
--- NOTE | 2019-01-20 07:23 | NUR ---
Patient in room PCU 3024. I have received report from SHAILA Diehl and had the opportunity to ask questions and assume patient care.
[2019-01-20] MEDS: budesonide 0.5mg/2ml UD nebule IH SCH ×2 (07:28→20:17)
[2019-01-20] MEDS: ipratropium/albuterol 3ml nebule NEB SCH ×3 (07:28→20:17)
[2019-01-20] MEDS: K and/or MAG REPLACEMENT MC SCH (08:00)
[2019-01-20] MEDS ORDERED: isosorbide mononitrate 30mg tab.SR.24H PO SCH (08:00)
[2019-01-20] MEDS ORDERED: diltiazem CD 120mg capsule (once-daily) PO SCH (08:00)
--- NOTE | 2019-01-20 08:12 | NUR ---
Paged Dr. Peng for PRN respiratory treatments. PAGER ID: [phone] MESSAGE: Pt Jenny Winslow [id number] is requesting PRN breathing treatments & using her home inhaler. Can we order PRN RT? Thanks! Yamilex LINTON [phone]
[2019-01-20] MEDS: fluticasone nasal spray 16GM bottle NS SCH (08:25)
[2019-01-20] MEDS: bumetanide 1mg tablet PO SCH (08:25)
[2019-01-20] MEDS: isosorbide mononitrate 30mg tab.SR.24H PO SCH (08:28)
[2019-01-20] MEDS: diltiazem CD 120mg capsule (once-daily) PO SCH (08:30)
[2019-01-20] MEDS: montelukast 10mg tablet PO SCH (08:30)
[2019-01-20] MEDS: apixaban 5mg tablet PO SCH ×2 (08:30→19:33)
[2019-01-20] MEDS: aspirin 81mg tablet.DR PO SCH (08:30)
[2019-01-20] MEDS: carVEDilol 12.5mg tablet PO SCH ×2 (08:30→19:33)
--- NOTE | 2019-01-20 13:15 | NUR ---
Dr. Peng at bedside, orders received for respiratory treatment PRN Q2 hours received.
[2019-01-20] MEDS: levoFLOXACIN-Levaquin 500mg/D5 100 ML IV SCH (16:34)
--- NOTE | 2019-01-20 16:59 | NUR ---
Called Dr. Peng per pt's request for Flonase. Order received to change Flonase from daily to PRN.
[2019-01-20] MEDS: fluticasone nasal spray 16GM bottle NS PRN (17:33)
--- NOTE | 2019-01-20 18:26 | NUR ---
Problems reprioritized. Patient report given, questions answered & plan of care reviewed with SHAILA Diehl.
--- NOTE | 2019-01-20 18:59 | NUR ---
Patient in room PCU 3024. I have received report from Yamilex LINTON and Lexi LINTON and had the opportunity to ask questions and assume patient care. Check on patient, she was up and talking with Dr. Nunez. Will continue to monitor.
[2019-01-21] VITALS (7 sets, daily range): BP systolic 139–167; BP diastolic 61–81
[2019-01-21] MEDS: methylPREDNISolone sod succ 125mg/2ml vial IV SCH ×3 (00:51→16:42)
[2019-01-21] MEDS: fluticasone nasal spray 16GM bottle NS PRN ×2 (00:57→03:56)
[2019-01-21] MEDS: albuterol 2.5 MG/3 ML nebule NEB PRN ×2 (04:14→08:03)
--- NOTE | 2019-01-21 06:15 | NUR ---
Patient in room PCU 3024. I have received report from SHAILA Diehl and had the opportunity to ask questions and assume patient care.
--- NOTE | 2019-01-21 06:16 | NUR ---
Problems reprioritized. Patient report given, questions answered & plan of care reviewed with Yamilex LINTON.
[2019-01-21 06:17] LABS: BASOPHILS % (AUTO) 0.1 % (0-1); EOSINOPHILS % (AUTO) 0 % (0-6); HEMATOCRIT 34.9 % (35.0-45.0); HEMOGLOBIN 11.3 g/dl (12.0-16.0); LYMPHOCYTES # (AUTO) 0.5 X10'3 (1.1-4.8); LYMPHOCYTES % (AUTO) 2.8 % (21-51); MEAN CORPUSCULAR HEMOGLOBIN 24.9 PG (27.0-31.0); MEAN CORPUSCULAR HGB CONC 32.3 g/dL (33.0-36.5); MEAN CORPUSCULAR VOLUME 77.1 FL (78-98); MEAN PLATELET VOLUME 8.6 FL (7.4-10.4); MONOCYTES # (AUTO) 0.3 X10'3 (0-0.9); MONOCYTES % (AUTO) 1.9 % (2-12); NEUTROPHILS # (AUTO) 17.4 X10'3 (1.8-7.7); NEUTROPHILS % (AUTO) 95.2 % (42-75); PLATELET COUNT 226 X10'3 (140-440); RED BLOOD COUNT 4.53 X10'6 (4.20-5.60); RED CELL DISTRIBUTION WIDTH 17.8 % (11.5-14.5); WHITE BLOOD COUNT 18.3 X10'3 (4.5-11.0)
[2019-01-21 07:01] LABS: ALANINE AMINOTRANSFERASE 15 U/L (12-78); ALBUMIN 2.9 G/DL (3.4-5.0); ALBUMIN/GLOBULIN RATIO 0.9 (1.1-1.5); ALKALINE PHOSPHATASE 67 IU/L (46-116); ANION GAP 14 (8-16); ASPARTATE AMINO TRANSFERASE 10 U/L (10-37); BILIRUBIN,TOTAL 0.3 MG/DL (0.1-1.0); BLOOD UREA NITROGEN 62 MG/DL (7-18); BUN/CREATININE RATIO 29.7 (6.6-38.0); CALCIUM 8.5 MG/DL (8.5-10.1); CHLORIDE 104 MMOL/L (99-107); CREATININE 2.09 MG/DL (0.40-0.90); GLUCOSE 215 MG/DL (70-104); MAGNESIUM 2.4 MG/DL (1.5-2.4); POTASSIUM 4.3 MMOL/L (3.5-5.1); SODIUM 139 MMOL/L (135-145); TOTAL CARBON DIOXIDE 20.6 MMOL/L (24-32); TOTAL PROTEIN 6.1 G/DL (6.4-8.2); eGFR 23 ML/MIN
[2019-01-21] MEDS: K and/or MAG REPLACEMENT MC SCH (08:00)
[2019-01-21] MEDS: budesonide 0.5mg/2ml UD nebule IH SCH ×2 (08:03→20:27)
[2019-01-21] MEDS: levoFLOXACIN-Levaquin 500mg/D5 100 ML IV SCH (08:22)
[2019-01-21] MEDS: diltiazem CD 120mg capsule (once-daily) PO SCH (08:23)
[2019-01-21] MEDS: montelukast 10mg tablet PO SCH (08:23)
[2019-01-21] MEDS: apixaban 5mg tablet PO SCH ×2 (08:23→20:25)
[2019-01-21] MEDS: carVEDilol 12.5mg tablet PO SCH ×2 (08:23→20:25)
[2019-01-21] MEDS: bumetanide 1mg tablet PO SCH (08:23)
[2019-01-21] MEDS: isosorbide mononitrate 30mg tab.SR.24H PO SCH (08:24)
[2019-01-21] MEDS: aspirin 81mg tablet.DR PO SCH (08:24)
--- NOTE | 2019-01-21 11:30 | NUR ---
Dr. Mares at bedside. Orders received for flutter valve & to call Dr. Frank's office to ask about consult on pt.
[2019-01-21] MEDS: ipratropium/albuterol 3ml nebule NEB SCH ×3 (14:52→20:27)
[2019-01-22] MEDS: methylPREDNISolone sod succ 125mg/2ml vial IV SCH ×3 (00:18→16:35)
[2019-01-22 03:00] VITALS: BP 153/64
[2019-01-22 06:10] LABS: BASOPHILS % (AUTO) 0 % (0-1); EOSINOPHILS % (AUTO) 0 % (0-6); HEMOGLOBIN 11.5 g/dl (12.0-16.0); LYMPHOCYTES # (AUTO) 0.5 X10'3 (1.1-4.8); LYMPHOCYTES % (AUTO) 3.7 % (21-51); MEAN CORPUSCULAR HEMOGLOBIN 24.8 PG (27.0-31.0); MEAN CORPUSCULAR HGB CONC 32.1 g/dL (33.0-36.5); MEAN CORPUSCULAR VOLUME 77.4 FL (78-98); MEAN PLATELET VOLUME 8.4 FL (7.4-10.4); MONOCYTES # (AUTO) 0.3 X10'3 (0-0.9); MONOCYTES % (AUTO) 2.1 % (2-12); NEUTROPHILS # (AUTO) 13.1 X10'3 (1.8-7.7); NEUTROPHILS % (AUTO) 94.2 % (42-75); PLATELET COUNT 215 X10'3 (140-440); RED BLOOD COUNT 4.65 X10'6 (4.20-5.60); RED CELL DISTRIBUTION WIDTH 17.7 % (11.5-14.5); WHITE BLOOD COUNT 13.9 X10'3 (4.5-11.0)
--- NOTE | 2019-01-22 06:11 | NUR ---
Patient in room PCU 3024. I have received report from SHAILA Diehl and had the opportunity to ask questions and assume patient care.
--- NOTE | 2019-01-22 06:16 | NUR ---
Problems reprioritized. Patient report given, questions answered & plan of care reviewed with Yamilex LINTON.
[2019-01-22 06:28] LABS: ALANINE AMINOTRANSFERASE 17 U/L (12-78); ALBUMIN 2.8 G/DL (3.4-5.0); ALBUMIN/GLOBULIN RATIO 0.9 (1.1-1.5); ALKALINE PHOSPHATASE 63 IU/L (46-116); ANION GAP 11 (8-16); ASPARTATE AMINO TRANSFERASE 10 U/L (10-37); BILIRUBIN,TOTAL 0.3 MG/DL (0.1-1.0); BLOOD UREA NITROGEN 61 MG/DL (7-18); BUN/CREATININE RATIO 31.4 (6.6-38.0); CALCIUM 8.4 MG/DL (8.5-10.1); CHLORIDE 105 MMOL/L (99-107); CREATININE 1.94 MG/DL (0.40-0.90); GLUCOSE 212 MG/DL (70-104); MAGNESIUM 2.5 MG/DL (1.5-2.4); POTASSIUM 4.1 MMOL/L (3.5-5.1); SODIUM 139 MMOL/L (135-145); TOTAL CARBON DIOXIDE 22.6 MMOL/L (24-32); TOTAL PROTEIN 5.9 G/DL (6.4-8.2); eGFR 26 ML/MIN
[2019-01-22 07:00] VITALS: BP 151/52
--- NOTE | 2019-01-22 07:14 | NUR ---
Paged RT for pt's PRN nebulizer tx.
[2019-01-22] MEDS: budesonide 0.5mg/2ml UD nebule IH SCH ×2 (07:26→21:06)
[2019-01-22] MEDS: ipratropium/albuterol 3ml nebule NEB SCH ×3 (07:26→21:06)
[2019-01-22] MEDS: bumetanide 1mg tablet PO SCH (07:27)
[2019-01-22] MEDS: isosorbide mononitrate 30mg tab.SR.24H PO SCH (07:27)
[2019-01-22] MEDS: aspirin 81mg tablet.DR PO SCH (07:27)
[2019-01-22] MEDS: montelukast 10mg tablet PO SCH (07:27)
[2019-01-22] MEDS: diltiazem CD 120mg capsule (once-daily) PO SCH (07:28)
[2019-01-22] MEDS: apixaban 5mg tablet PO SCH ×2 (07:28→20:16)
[2019-01-22] MEDS: carVEDilol 12.5mg tablet PO SCH ×2 (07:28→20:16)
[2019-01-22] MEDS: K and/or MAG REPLACEMENT MC SCH (07:34)
--- NOTE | 2019-01-22 11:50 | NUR ---
Dr. Hammonds at nurses's station. Orders received for sputum sample, daily weights & Mucomyst.
[2019-01-22 12:00] VITALS: BP 147/58
[2019-01-22 16:00] VITALS: BP 145/64
[2019-01-22] MEDS ORDERED: acetylcysteine 200 MG/ml 4ml vial INH ONE (16:00)
--- NOTE | 2019-01-22 16:28 | NUR ---
Paged RT re need for MucoMyst to be administered by inhalation.
[2019-01-22] MEDS ORDERED: furosemide 20 MG/2 ML vial IV ONE (17:25)
[2019-01-22 18:00] VITALS: BP 145/61
--- NOTE | 2019-01-22 18:37 | NUR ---
Patient in room U 3024. I have received report from SHAILA CARPIO and had the opportunity to ask questions and assume patient care. Addendum: 01/22/19 at 1837 by Patricia Mccartney RN Amended: Links added.
--- NOTE | 2019-01-22 18:38 | NUR ---
Problems reprioritized. Patient report given, questions answered & plan of care reviewed with SHAILA Sutton.
[2019-01-22] MEDS ORDERED: acetylcysteine 200 MG/ml 4ml vial PO SCH (20:00)
[2019-01-22 22:00] VITALS: BP 152/64
[2019-01-23] MEDS: methylPREDNISolone sod succ 125mg/2ml vial IV SCH ×3 (01:00→15:43)
[2019-01-23 03:00] VITALS: BP 141/74
[2019-01-23] MEDS: albuterol 2.5 MG/3 ML nebule NEB PRN (03:07)
[2019-01-23 06:00] VITALS: BP 166/75
--- NOTE | 2019-01-23 06:29 | NUR ---
Problems reprioritized. Patient report given, questions answered & plan of care reviewed with SHAILA Amor. Addendum: 01/23/19 at 0612 by Patricia Mccartney RN Amended: Links added.
[2019-01-23 06:44] LABS: ALANINE AMINOTRANSFERASE 18 U/L (12-78); ALBUMIN 2.8 G/DL (3.4-5.0); ALBUMIN/GLOBULIN RATIO 0.9 (1.1-1.5); ALKALINE PHOSPHATASE 63 IU/L (46-116); ANION GAP 12 (8-16); ASPARTATE AMINO TRANSFERASE 2 U/L (10-37); BILIRUBIN,TOTAL 0.3 MG/DL (0.1-1.0); BLOOD UREA NITROGEN 60 MG/DL (7-18); BUN/CREATININE RATIO 32.4 (6.6-38.0); CALCIUM 8.4 MG/DL (8.5-10.1); CHLORIDE 104 MMOL/L (99-107); CREATININE 1.85 MG/DL (0.40-0.90); GLUCOSE 232 MG/DL (70-104); MAGNESIUM 2.6 MG/DL (1.5-2.4); POTASSIUM 3.7 MMOL/L (3.5-5.1); SODIUM 139 MMOL/L (135-145); TOTAL CARBON DIOXIDE 22.8 MMOL/L (24-32); eGFR 27 ML/MIN
[2019-01-23 06:47] LABS: BASOPHILS % (AUTO) 0.3 % (0-1); EOSINOPHILS % (AUTO) 0 % (0-6); HEMATOCRIT 37.6 % (35.0-45.0); HEMOGLOBIN 12.1 g/dl (12.0-16.0); LYMPHOCYTES # (AUTO) 0.4 X10'3 (1.1-4.8); LYMPHOCYTES % (AUTO) 3.6 % (21-51); MEAN CORPUSCULAR HEMOGLOBIN 24.6 PG (27.0-31.0); MEAN CORPUSCULAR HGB CONC 32.3 g/dL (33.0-36.5); MEAN CORPUSCULAR VOLUME 75.9 FL (78-98); MEAN PLATELET VOLUME 8.6 FL (7.4-10.4); MONOCYTES # (AUTO) 0.4 X10'3 (0-0.9); MONOCYTES % (AUTO) 3.1 % (2-12); NEUTROPHILS # (AUTO) 10.9 X10'3 (1.8-7.7); PLATELET COUNT 211 X10'3 (140-440); RED BLOOD COUNT 4.95 X10'6 (4.20-5.60); RED CELL DISTRIBUTION WIDTH 17.7 % (11.5-14.5); WHITE BLOOD COUNT 11.7 X10'3 (4.5-11.0)
[2019-01-23] MEDS: diltiazem CD 120mg capsule (once-daily) PO SCH (07:17)
[2019-01-23] MEDS: carVEDilol 12.5mg tablet PO SCH ×2 (07:17→19:33)
[2019-01-23] MEDS: apixaban 5mg tablet PO SCH ×2 (07:17→19:27)
[2019-01-23] MEDS: levoFLOXACIN-Levaquin 750MG/D5 150 ML IV SCH (07:17)
[2019-01-23] MEDS: bumetanide 1mg tablet PO SCH (07:17)
[2019-01-23] MEDS: isosorbide mononitrate 30mg tab.SR.24H PO SCH (07:17)
[2019-01-23] MEDS: aspirin 81mg tablet.DR PO SCH (07:17)
[2019-01-23] MEDS: montelukast 10mg tablet PO SCH (07:18)
[2019-01-23] MEDS ORDERED: furosemide 20 MG/2 ML vial IV SCH (08:00)
[2019-01-23] MEDS: K and/or MAG REPLACEMENT MC SCH (08:00)
[2019-01-23] MEDS: ipratropium/albuterol 3ml nebule NEB SCH ×3 (09:14→20:12)
[2019-01-23] MEDS: budesonide 0.5mg/2ml UD nebule IH SCH ×2 (09:14→20:12)
[2019-01-23 11:00] VITALS: BP 149/73
--- NOTE | 2019-01-23 11:10 | NUR ---
Initial: Pt admit w/ asthma exacerbation PO 100% meals but decreased to 25% yesterday. Noted no BM in 4 days; colace BID PRN ordered but not given. ALEC d/w RN regarding change to routine per MD approval for constipation. Will continue to monitor. Rec: 1. continue heart healthy diet 2. routine bowel care for constipation 3. wt per rx Addendum: 01/23/19 at [address] Amended: Links added.
[2019-01-23 15:00] VITALS: BP 134/56
--- NOTE | 2019-01-23 18:11 | NUR ---
Problems reprioritized. Patient report given, questions answered & plan of care reviewed with Ken LINTON.
--- NOTE | 2019-01-23 18:12 | NUR ---
Patient in room PCU 3027i. I have received report from SHAILA Amor and had the opportunity to ask questions and assume patient care. Patient awake for bedside report and stable at this time. Will continue to monitor closely.
[2019-01-23 19:00] VITALS: BP 159/74
[2019-01-23] MEDS: fluticasone nasal spray 16GM bottle NS PRN (19:21)
[2019-01-23] MEDS: furosemide 40mg/4ml inj IV SCH (19:26)
[2019-01-23] MEDS: lactobacillus rhamnosus 10,000 MMU CELLS/CAPSULE PO SCH (19:33)
[2019-01-23 23:00] VITALS: BP 133/67
[2019-01-24] MEDS: methylPREDNISolone sod succ 125mg/2ml vial IV SCH ×3 (00:01→15:29)
[2019-01-24] MEDS: ondansetron/PF 4mg/2ml inj IV PRN ×2 (00:22→09:41)
[2019-01-24] MEDS: albuterol 2.5 MG/3 ML nebule NEB PRN (00:23)
[2019-01-24 03:00] VITALS: BP 136/47
[2019-01-24 06:18] LABS: HEMATOCRIT 39.1 % (35.0-45.0); HEMOGLOBIN 12.6 g/dl (12.0-16.0); MEAN CORPUSCULAR HEMOGLOBIN 24.7 PG (27.0-31.0); MEAN CORPUSCULAR HGB CONC 32.3 g/dL (33.0-36.5); MEAN CORPUSCULAR VOLUME 76.4 FL (78-98); MEAN PLATELET VOLUME 8.6 FL (7.4-10.4); PLATELET COUNT 217 X10'3 (140-440); RED BLOOD COUNT 5.12 X10'6 (4.20-5.60); RED CELL DISTRIBUTION WIDTH 17.7 % (11.5-14.5); WHITE BLOOD COUNT 12.2 X10'3 (4.5-11.0)
--- NOTE | 2019-01-24 06:35 | NUR ---
Patient in room PCU 3024. I have received report from Ken LINTON and had the opportunity to ask questions and assume patient care.
[2019-01-24 06:36] LABS: ANION GAP 14 (8-16); BLOOD UREA NITROGEN 67 MG/DL (7-18); CALCIUM 7.7 MG/DL (8.5-10.1); CHLORIDE 100 MMOL/L (99-107); CREATININE 2.03 MG/DL (0.40-0.90); GLUCOSE 262 MG/DL (70-104); POTASSIUM 3.6 MMOL/L (3.5-5.1); SODIUM 138 MMOL/L (135-145); TOTAL CARBON DIOXIDE 24.5 MMOL/L (24-32); eGFR 24 ML/MIN
[2019-01-24 06:37] LABS: MAGNESIUM 2.5 MG/DL (1.5-2.4); PHOSPHORUS 5.2 MG/DL (2.3-4.5)
--- NOTE | 2019-01-24 06:39 | NUR ---
Problems reprioritized. Patient report given, questions answered & plan of care reviewed with SHAILA Amor.
[2019-01-24 07:00] VITALS: BP 170/73
[2019-01-24] MEDS: lactobacillus rhamnosus 10,000 MMU CELLS/CAPSULE PO SCH ×2 (07:44→19:44)
[2019-01-24] MEDS: apixaban 5mg tablet PO SCH ×2 (07:44→19:44)
[2019-01-24] MEDS: carVEDilol 12.5mg tablet PO SCH ×2 (07:44→20:00)
[2019-01-24] MEDS: montelukast 10mg tablet PO SCH (07:44)
[2019-01-24] MEDS: furosemide 40mg/4ml inj IV SCH ×2 (07:44→19:49)
[2019-01-24] MEDS: aspirin 81mg tablet.DR PO SCH (07:44)
[2019-01-24] MEDS: diltiazem CD 120mg capsule (once-daily) PO SCH (07:44)
[2019-01-24] MEDS: isosorbide mononitrate 30mg tab.SR.24H PO SCH (07:44)
[2019-01-24] MEDS: K and/or MAG REPLACEMENT MC SCH (08:00)
[2019-01-24] MEDS: ipratropium/albuterol 3ml nebule NEB SCH ×3 (08:43→20:26)
[2019-01-24] MEDS: budesonide 0.5mg/2ml UD nebule IH SCH ×2 (08:43→20:26)
[2019-01-24 11:00] VITALS: BP 145/82
[2019-01-24] MEDS: docusate sod 100mg capsule PO PRN (13:14)
[2019-01-24] MEDS: fluticasone nasal spray 16GM bottle NS PRN (13:15)
[2019-01-24 15:30] VITALS: BP 153/74
--- NOTE | 2019-01-24 18:28 | NUR ---
Problems reprioritized. Patient report given, questions answered & plan of care reviewed with Ken LINTON.
--- NOTE | 2019-01-24 18:35 | NUR ---
Patient in room PCU 3028S. I have received report from SHAILA Amor and had the opportunity to ask questions and assume patient care. Patient awake for bedside report and is stable at this time. Will continue to monitor closely.
[2019-01-24 19:00] VITALS: BP 93/54
[2019-01-24] MEDS: methylPREDNISolone sod succ/PF 40mg inj. IV SCH (19:51)
[2019-01-24 19:56] LABS: CLARITY,URINE CLEAR (Clear); COLOR,URINE YELLOW (Yellow); GLUCOSE, URINE NEGATIVE (Neg); KETONES,URINE NEGATIVE (Neg); LEUKOCYTE ESTERASE ,URINE NEGATIVE (Neg); NITRITES, URINE NEGATIVE (Neg); OCCULT BLOOD,URINE NEGATIVE (Neg); PH,URINE 5.5 (4.8-8.0); PROTEIN,URINE NEGATIVE (Neg); UROBILINOGEN,URINE 0.2 E.U/dL (0.2-1.0)
[2019-01-24 19:58] LABS: UA COLLECTION TYPE NON-SPECIFIED
[2019-01-24 20:03] LABS: TOTAL PROTEIN,URINE RANDOM 7.1 MG/DL
[2019-01-24] MEDS: simethicone 125mg capsule PO SCH (21:04)
[2019-01-24 23:00] VITALS: BP 152/65
[2019-01-25 03:00] VITALS: BP 129/82
[2019-01-25 05:16] LABS: HEMATOCRIT 41.7 % (35.0-45.0); HEMOGLOBIN 13.6 g/dl (12.0-16.0); MEAN CORPUSCULAR HEMOGLOBIN 24.9 PG (27.0-31.0); MEAN CORPUSCULAR HGB CONC 32.6 g/dL (33.0-36.5); MEAN CORPUSCULAR VOLUME 76.3 FL (78-98); MEAN PLATELET VOLUME 8.6 FL (7.4-10.4); PLATELET COUNT 192 X10'3 (140-440); RED BLOOD COUNT 5.47 X10'6 (4.20-5.60); RED CELL DISTRIBUTION WIDTH 17.3 % (11.5-14.5); WHITE BLOOD COUNT 10.2 X10'3 (4.5-11.0)
[2019-01-25 05:38] LABS: ALBUMIN 3.1 G/DL (3.4-5.0); ANION GAP 14 (8-16); BLOOD UREA NITROGEN 69 MG/DL (7-18); BUN/CREATININE RATIO 31.9 (6.6-38.0); CALCIUM 7.9 MG/DL (8.5-10.1); CHLORIDE 98 MMOL/L (99-107); CREATININE 2.16 MG/DL (0.40-0.90); GLUCOSE 307 MG/DL (70-104); MAGNESIUM 2.6 MG/DL (1.5-2.4); PHOSPHORUS 5.6 MG/DL (2.3-4.5); POTASSIUM 3.7 MMOL/L (3.5-5.1); SODIUM 137 MMOL/L (135-145); TOTAL CARBON DIOXIDE 25.3 MMOL/L (24-32); eGFR 23 ML/MIN
--- NOTE | 2019-01-25 06:36 | NUR ---
Patient in room PCU 3024. I have received report from Ken LINTON and had the opportunity to ask questions and assume patient care.
--- NOTE | 2019-01-25 06:36 | NUR ---
Problems reprioritized. Patient report given, questions answered & plan of care reviewed with SHAILA Amor and SHAILA Browne.
[2019-01-25 07:00] VITALS: BP 141/77
[2019-01-25] MEDS: simethicone 125mg capsule PO SCH ×3 (07:59→20:25)
[2019-01-25] MEDS: montelukast 10mg tablet PO SCH (07:59)
[2019-01-25] MEDS: apixaban 5mg tablet PO SCH ×2 (07:59→20:25)
[2019-01-25] MEDS: docusate sod 100mg capsule PO PRN (07:59)
[2019-01-25] MEDS: carVEDilol 12.5mg tablet PO SCH ×2 (07:59→20:30)
[2019-01-25] MEDS: lactobacillus rhamnosus 10,000 MMU CELLS/CAPSULE PO SCH ×2 (07:59→20:25)
[2019-01-25] MEDS: diltiazem CD 120mg capsule (once-daily) PO SCH (07:59)
[2019-01-25] MEDS: methylPREDNISolone sod succ/PF 40mg inj. IV SCH ×2 (08:00→20:25)
[2019-01-25] MEDS: K and/or MAG REPLACEMENT MC SCH (08:00)
[2019-01-25] MEDS: isosorbide mononitrate 30mg tab.SR.24H PO SCH (08:00)
[2019-01-25] MEDS: furosemide 40mg/4ml inj IV SCH (08:00)
[2019-01-25] MEDS: aspirin 81mg tablet.DR PO SCH (08:03)
[2019-01-25] MEDS: levoFLOXACIN-Levaquin 750MG/D5 150 ML IV SCH (08:58)
[2019-01-25] MEDS: budesonide 0.5mg/2ml UD nebule IH SCH ×2 (09:19→19:51)
[2019-01-25] MEDS: ipratropium/albuterol 3ml nebule NEB SCH ×3 (09:19→19:51)
[2019-01-25 11:00] VITALS: BP 150/63
--- NOTE | 2019-01-25 14:09 | NUR ---
Dr. Mares requested Dr. Frank to consult pt in regards to increase need of oxygen, called office and spoke with sports equipment supervisor and will call us back.
[2019-01-25 15:00] VITALS: BP 132/63
--- NOTE | 2019-01-25 18:30 | NUR ---
Problems reprioritized. Patient report given, questions answered & plan of care reviewed with Ken LINTON.
--- NOTE | 2019-01-25 18:30 | NUR ---
I have reviewed and agree with all interventions, assessments performed and documented by umu LINTON.
[2019-01-25 19:00] VITALS: BP 138/66
--- NOTE | 2019-01-25 19:32 | NUR ---
Patient in room PCU 3024a. I have received report from SHAILA Amor and had the opportunity to ask questions and assume patient care. Patient awake for bedside report. Will continue to monitor closely.
[2019-01-25 23:00] VITALS: BP 144/70
--- NOTE | 2019-01-26 02:08 | NUR ---
PAGER ID: [phone] MESSAGE: [phone] SHAILA Rogers for patient in 2509N. Admit Dx acute respiratory failure. Has Hx right sided stroke with left sided lower extremity RLS as deficit. Pt requested something for RLS. Not able to sleep. Thanks. Addendum: 01/26/19 at 0211 by Angel Partida RN Dr. Peng returned call and no new orders at this time.
[2019-01-26 03:00] VITALS: BP 153/61
[2019-01-26 06:00] VITALS: BP 174/78
[2019-01-26 06:16] LABS: ANION GAP 15 (8-16); BLOOD UREA NITROGEN 69 MG/DL (7-18); BUN/CREATININE RATIO 37.1 (6.6-38.0); CALCIUM 8.4 MG/DL (8.5-10.1); CHLORIDE 96 MMOL/L (99-107); CREATININE 1.86 MG/DL (0.40-0.90); GLUCOSE 288 MG/DL (70-104); PHOSPHORUS 5.4 MG/DL (2.3-4.5); POTASSIUM 3.4 MMOL/L (3.5-5.1); SODIUM 138 MMOL/L (135-145); TOTAL CARBON DIOXIDE 26.8 MMOL/L (24-32); eGFR 27 ML/MIN
[2019-01-26 06:24] LABS: HEMATOCRIT 40.9 % (35.0-45.0); HEMOGLOBIN 13.4 g/dl (12.0-16.0); MEAN CORPUSCULAR HGB CONC 32.7 g/dL (33.0-36.5); MEAN CORPUSCULAR VOLUME 76.4 FL (78-98); MEAN PLATELET VOLUME 9.1 FL (7.4-10.4); PLATELET COUNT 191 X10'3 (140-440); RED BLOOD COUNT 5.35 X10'6 (4.20-5.60); RED CELL DISTRIBUTION WIDTH 17.9 % (11.5-14.5); WHITE BLOOD COUNT 9.9 X10'3 (4.5-11.0)
--- NOTE | 2019-01-26 06:30 | NUR ---
Patient in room PCU 3024. I have received report from Ken LINTON and had the opportunity to ask questions and assume patient care.
--- NOTE | 2019-01-26 06:54 | NUR ---
Problems reprioritized. Patient report given, questions answered & plan of care reviewed with SHAILA Alarcon.
[2019-01-26] MEDS: montelukast 10mg tablet PO SCH (07:43)
[2019-01-26] MEDS: aspirin 81mg tablet.DR PO SCH (07:43)
[2019-01-26] MEDS: isosorbide mononitrate 30mg tab.SR.24H PO SCH (07:44)
[2019-01-26] MEDS: methylPREDNISolone sod succ/PF 40mg inj. IV SCH (07:44)
[2019-01-26] MEDS: apixaban 5mg tablet PO SCH (07:44)
[2019-01-26] MEDS: carVEDilol 12.5mg tablet PO SCH (07:44)
[2019-01-26] MEDS: diltiazem CD 120mg capsule (once-daily) PO SCH (07:44)
[2019-01-26] MEDS: simethicone 125mg capsule PO SCH ×2 (07:44→13:00)
[2019-01-26] MEDS: lactobacillus rhamnosus 10,000 MMU CELLS/CAPSULE PO SCH (07:44)
[2019-01-26] MEDS: K and/or MAG REPLACEMENT MC SCH (08:00)
[2019-01-26] MEDS ORDERED: furosemide 20 MG/2 ML vial IV SCH (08:00)
[2019-01-26] MEDS: budesonide 0.5mg/2ml UD nebule IH SCH (08:00)
[2019-01-26] MEDS: ipratropium/albuterol 3ml nebule NEB SCH ×2 (08:06→14:42)
[2019-01-26 08:10] LABS: IMMUNOGLOBULIN A, QN, SERUM 51 mg/dL (87-352); IMMUNOGLOBULIN G, QN, SERUM 647 mg/dL (700-1600); IMMUNOGLOBULIN M, QN, SERUM 47 mg/dL (26-217)
[2019-01-26] MEDS: fluticasone nasal spray 16GM bottle NS PRN (09:38)
[2019-01-26 11:00] VITALS: BP 146/76
--- NOTE | 2019-01-26 12:00 | NUR ---
O2 Sat at rest on room air:__88_% If below 89%: Recovery O2 Sat at rest on _2__LPM:__91_%:___% via NC (mask/nasal cannula, etc..)
[2019-01-26 13:15] LABS: A/G RATIO 1.3 (0.7-1.7); ALBUMIN 3.2 g/dL (2.9-4.4); GAMMA GLOBULIN 0.6 g/dL (0.4-1.8); GLOBULIN, TOTAL 2.5 g/dL (2.2-3.9); M-SPIKE Not Observed g/dL (Not Observed); PROTEIN, TOTAL, SERUM 5.7 g/dL (6.0-8.5)
--- NOTE | 2019-01-26 14:43 | NUR ---
PAGER ID: [phone] MESSAGE: [phone] Mark Winslow Per jolanta Aleman to discharge. Gerri aware; will order home O2 and home health. Angela [facility] [phone]
[2019-01-26 15:00] VITALS: BP 161/73
[2019-01-26] MEDS ORDERED: MONT10TA24 PO (15:09)
[2019-01-26] MEDS ORDERED: FURO40TA4 PO (15:09)
[2019-01-26] MEDS ORDERED: PRED10TA PO (15:09)
--- NOTE | 2019-01-26 15:38 | NUR ---
PAGER ID: [phone] MESSAGE: [id number] Mark Winslow DC rx of prednisone has no taper instructions. Pls. advise if this is correct. Thanks! Angela Stefan [phone]
--- NOTE | 2019-01-26 17:30 | NUR ---
Stable for d/c per MD orders. Discharge instructions reviewed and questions answered. Pt. to follow up with PCP in one week and with Dr. Nunez and Dr. Frank in 2 weeks. New prescriptions delivered to bedside through [facility]. PIV discontinued; cannula intact. Telemetry monitoring discontinued. All belongings sent with patient. Transported to private vehicle via wheelchair accompanied by nurse aide, son, and granddaughter.
--- NOTE | 2019-01-26 18:33 | NUR ---
Orientee documentation: I have reviewed and agree with all interventions, assessments performed and documented by Anthony LINTON. [place]ee Medication Administration: For this medication-pass time frame, all medication were reviewed, dispensed, administered and documented per hospital policy by SHAILA Cruz.
[2019-01-27 13:18] LABS: ALBUMIN, UR 53.7 % (.); ALPHA-1-GLOBULIN,UR 0.6 % (.); ALPHA-2-GLOBULIN,UR 3.8 % (.); GAMMA GLOBULIN,UR 12.9 % (.); PROTEIN,TOTAL,URINE 5.3 mg/dL (Not Estab.)
== END 2019-01-26 17:30 | disposition home health service (06) | DRG 291 ==
LOC: ER 22:11 → PCU 3S 01-18 04:55 → EDBEDREQ 01-18 05:04 → CMPBEDREQ 01-18 05:08
PROVIDERS: ADMIT Family Medicine; ATTEND Family Medicine
DX: I13.0 Hypertensive heart and chronic kidney disease with heart failure and stage 1 through stage 4 chronic kidney disease, or unspecified chronic kidney disease (principal); I50.33 Acute on chronic diastolic (congestive) heart failure; J96.00 Acute respiratory failure, unspecified whether with hypoxia or hypercapnia; J45.901 Unspecified asthma with (acute) exacerbation; J44.1 Chronic obstructive pulmonary disease with (acute) exacerbation; I69.354 Hemiplegia and hemiparesis following cerebral infarction affecting left non-dominant side; J44.0 Chronic obstructive pulmonary disease with (acute) lower respiratory infection; N17.9 Acute kidney failure, unspecified; I70.1 Atherosclerosis of renal artery; J20.9 Acute bronchitis, unspecified; I25.10 Atherosclerotic heart disease of native coronary artery without angina pectoris; E03.9 Hypothyroidism, unspecified; E78.00 Pure hypercholesterolemia, unspecified; I48.0 Paroxysmal atrial fibrillation; I73.9 Peripheral vascular disease, unspecified; E78.5 Hyperlipidemia, unspecified; N18.9 Chronic kidney disease, unspecified; J98.6 Disorders of diaphragm; Z79.899 Other long term (current) drug therapy; Z82.3 Family history of stroke; I25.2 Old myocardial infarction; Z82.49 Family history of ischemic heart disease and other diseases of the circulatory system; Z85.3 Personal history of malignant neoplasm of breast; Z86.711 Personal history of pulmonary embolism; Z86.718 Personal history of other venous thrombosis and embolism; Z87.891 Personal history of nicotine dependence; Z95.1 Presence of aortocoronary bypass graft; Z88.8 Allergy status to other drugs, medicaments and biological substances; Z88.0 Allergy status to penicillin; Z88.7 Allergy status to serum and vaccine; Z79.82 Long term (current) use of aspirin
CPT/HCPCS: 36415; 36600; 71045; 80048; 80053; 80061; 81003; 82570; 82784; 82803; 83735; 83880; 84100; 84155; 84156; 84165; 84166; 84300; 84484; 85018; 85025; 85027; 85610; 85730; 86334; 87070; 87081; 93005; 93975; 94640; 94667; 94668; 94760; 99285; G0378; J0360; J1940; J1956; J2405; J2920; J2930; J7626

== ENCOUNTER 2019-03-01 11:39 | Inpatient (IN) | payer MEDICARE, OTHER ==
[~2019-03-01] VITALS: Ht 165.1 cm; Wt 68.2 kg
[~2019-03-01 11:39] MED LIST changes: +BUME1TAB8 PO; -FLUT16SP18 NS; +FLUT16SP2 BOTHNARES; +IPRA3AMP9 IH; +LEVO100T PO; -LEVO100T9 PO; -LEVO500T2 PO; +MONT10TA24 PO; -NYSPWD TP; +PRED10TA PO; -PRIM50TA27 PO
--- NOTE | 2019-03-01 11:55 | NUR ---
patient to ct.
[2019-03-01 12:04] LABS: BASOPHILS # (AUTO) 0.1 X10'3 (0-0.2); BASOPHILS % (AUTO) 0.6 % (0-1); EOSINOPHILS % (AUTO) 0.1 % (0-6); HEMATOCRIT 35.2 % (35.0-45.0); HEMOGLOBIN 11.3 g/dl (12.0-16.0); LYMPHOCYTES # (AUTO) 1.4 X10'3 (1.1-4.8); LYMPHOCYTES % (AUTO) 10.7 % (21-51); MEAN CORPUSCULAR HEMOGLOBIN 26.2 PG (27.0-31.0); MEAN CORPUSCULAR VOLUME 81.8 FL (78-98); MEAN PLATELET VOLUME 7.5 FL (7.4-10.4); MONOCYTES # (AUTO) 1.7 X10'3 (0-0.9); MONOCYTES % (AUTO) 12.9 % (2-12); NEUTROPHILS % (AUTO) 75.7 % (42-75); PLATELET COUNT 186 X10'3 (140-440); RED BLOOD COUNT 4.31 X10'6 (4.20-5.60); RED CELL DISTRIBUTION WIDTH 21.8 % (11.5-14.5); WHITE BLOOD COUNT 13.2 X10'3 (4.5-11.0)
[2019-03-01 12:19] LABS: ALANINE AMINOTRANSFERASE 32 U/L (12-78); ALBUMIN 2.8 G/DL (3.4-5.0); ALBUMIN/GLOBULIN RATIO 0.7 (1.1-1.5); ALKALINE PHOSPHATASE 81 IU/L (46-116); ANION GAP 11 (8-16); ASPARTATE AMINO TRANSFERASE 12 U/L (10-37); BILIRUBIN,TOTAL 0.6 MG/DL (0.1-1.0); BLOOD UREA NITROGEN 25 MG/DL (7-18); BUN/CREATININE RATIO 17.5 (6.6-38.0); CALCIUM 8.6 MG/DL (8.5-10.1); CHLORIDE 104 MMOL/L (99-107); CREATININE 1.43 MG/DL (0.40-0.90); GLUCOSE 106 MG/DL (70-104); POTASSIUM 3.4 MMOL/L (3.5-5.1); SODIUM 140 MMOL/L (135-145); TOTAL CARBON DIOXIDE 25.2 MMOL/L (24-32); TOTAL PROTEIN 6.7 G/DL (6.4-8.2); eGFR 36 ML/MIN
[2019-03-01 12:21] LABS: TROPONIN I < 0.04 NG/ML (0.0-0.05)
[2019-03-01 12:25] LABS: PARTIAL THROMBOPLASTIN TIME 37 SECONDS (22-32)
--- NOTE | 2019-03-01 12:31 | NUR ---
PT STATES, THE ONLY THING THAT HAPPENED WAS SLURRED SPEECH LASTING 5-6 MINUTES AND BP 200 SYST. SLURRED SPEECH WITNESSED BY PHYSICAL THERAPIST AND GRAND DAUGHTER. WHEN SHE ARRIVED TO ER 186/90.
[2019-03-01 12:52] LABS: ANISOCYTOSIS 3+; PLATELET ESTIMATE NORMAL
--- NOTE | 2019-03-01 12:53 | NUR ---
relieving RN for break, pt is resting quietly on gurney, talking with family, pt is a/o x3,
--- NOTE | 2019-03-01 12:57 | NUR ---
pt passed swallow test
[2019-03-01] MEDS ORDERED: magnesium 2GM in 50ml NS 50 ML IV PRN (13:35)
[2019-03-01] MEDS ORDERED: potassium CL 10mEq/100ml bag 100 ML IV PRN ×2 (13:35)
[2019-03-01] MEDS ORDERED: acetaminophen 325mg tablet PO PRN (13:35)
[2019-03-01] MEDS ORDERED: potassium Cl 20 mEq SR tablet PO PRN (13:35)
[2019-03-01] MEDS ORDERED: mag hydrox/Alum hydrox/simeth 30ml oral suspension PO PRN (13:35)
[2019-03-01] MEDS ORDERED: magnesium 4gm in 100ml NS 100 ML IV PRN (13:35)
[2019-03-01] MEDS ORDERED: PRED5TAB49 PO (13:55)
[2019-03-01] MEDS ORDERED: FURO40TA4 PO (13:57)
[2019-03-01] MEDS ORDERED: ROPI1TAB4 PO (13:57)
[2019-03-01] MEDS ORDERED: MONT10TA24 PO (14:01)
[2019-03-01] MEDS: ipratropium/albuterol 3ml nebule NEB PRN (15:16)
[2019-03-01 18:00] VITALS: BP 162/65
[2019-03-01] MEDS: apixaban 5mg tablet PO SCH (20:45)
[2019-03-01] MEDS: ROPINIRole 1mg tablet PO SCH (20:50)
[2019-03-01] MEDS: atorvastatin 10mg tablet PO SCH (20:51)
[2019-03-01] MEDS: budesonide 0.5mg/2ml UD nebule IH SCH (21:22)
[2019-03-01 22:00] VITALS: BP 117/84
[2019-03-01] MEDS: potassium Cl 20 mEq SR tablet PO PRN (23:38)
[2019-03-02 02:00] VITALS: BP 156/72
[2019-03-02] MEDS: potassium Cl 20 mEq SR tablet PO PRN (04:33)
[2019-03-02 06:00] VITALS: BP 150/65
[2019-03-02 06:27] LABS: BASOPHILS % (AUTO) 0.2 % (0-1); EOSINOPHILS % (AUTO) 0.1 % (0-6); HEMATOCRIT 33.9 % (35.0-45.0); HEMOGLOBIN 10.9 g/dl (12.0-16.0); LYMPHOCYTES # (AUTO) 1.2 X10'3 (1.1-4.8); LYMPHOCYTES % (AUTO) 12.1 % (21-51); MEAN CORPUSCULAR HEMOGLOBIN 26.4 PG (27.0-31.0); MEAN CORPUSCULAR HGB CONC 32.3 g/dL (33.0-36.5); MEAN CORPUSCULAR VOLUME 81.9 FL (78-98); MEAN PLATELET VOLUME 8.1 FL (7.4-10.4); MONOCYTES # (AUTO) 1.3 X10'3 (0-0.9); MONOCYTES % (AUTO) 12.3 % (2-12); NEUTROPHILS # (AUTO) 7.7 X10'3 (1.8-7.7); NEUTROPHILS % (AUTO) 75.3 % (42-75); PLATELET COUNT 177 X10'3 (140-440); RED BLOOD COUNT 4.13 X10'6 (4.20-5.60); RED CELL DISTRIBUTION WIDTH 21.2 % (11.5-14.5); WHITE BLOOD COUNT 10.2 X10'3 (4.5-11.0)
--- NOTE | 2019-03-02 06:33 | NUR ---
Problems reprioritized. Patient report given, questions answered & plan of care reviewed with SHAILA MENDENHALL.
[2019-03-02 06:44] LABS: ALANINE AMINOTRANSFERASE 29 U/L (12-78); ALBUMIN 2.6 G/DL (3.4-5.0); ALBUMIN/GLOBULIN RATIO 0.7 (1.1-1.5); ALKALINE PHOSPHATASE 73 IU/L (46-116); ANION GAP 9 (8-16); ASPARTATE AMINO TRANSFERASE 12 U/L (10-37); BILIRUBIN,TOTAL 0.3 MG/DL (0.1-1.0); BLOOD UREA NITROGEN 23 MG/DL (7-18); BUN/CREATININE RATIO 14.5 (6.6-38.0); CALCIUM 8.6 MG/DL (8.5-10.1); CHLORIDE 104 MMOL/L (99-107); CHOL/HDL RATIO 4.1 (0.00-4.99); CHOLESTEROL 182 MG/DL (0-200); CREATININE 1.59 MG/DL (0.40-0.90); GLUCOSE 133 MG/DL (70-104); HDL CHOLESTEROL 44 MG/DL (35-60); LDL CHOLESTEROL 117 MG/DL (50-100); MAGNESIUM 1.9 MG/DL (1.5-2.4); POTASSIUM 3.7 MMOL/L (3.5-5.1); SODIUM 140 MMOL/L (135-145); TOTAL CARBON DIOXIDE 26.7 MMOL/L (24-32); TOTAL PROTEIN 6.2 G/DL (6.4-8.2); TRIGLYCERIDES 130 MG/DL (20-135); eGFR 32 ML/MIN
--- NOTE | 2019-03-02 06:59 | NUR ---
Patient in room ORTHO 4024. I have received report from Neelima LINTON and had the opportunity to ask questions and assume patient care.
[2019-03-02] MEDS: K and/or MAG REPLACEMENT MC SCH (07:05)
[2019-03-02] MEDS: predniSONE 5mg tablet PO SCH (07:16)
[2019-03-02] MEDS: isosorbide mononitrate 30mg tab.SR.24H PO SCH (07:16)
[2019-03-02] MEDS: apixaban 5mg tablet PO SCH ×2 (07:17→20:09)
[2019-03-02] MEDS: aspirin 81mg tab.chew PO SCH (07:17)
[2019-03-02] MEDS: montelukast 10mg tablet PO SCH (07:17)
[2019-03-02] MEDS: levoTHYROXINE 100mcg tablet PO SCH (07:18)
[2019-03-02 07:20] LABS: ANISOCYTOSIS 3+; PLATELET ESTIMATE NORMAL
[2019-03-02] MEDS: budesonide 0.5mg/2ml UD nebule IH SCH ×2 (07:58→22:13)
[2019-03-02] MEDS: MIRABEGRON 50 MG PO SCH (08:00)
[2019-03-02] MEDS ORDERED: enoxaparin 40mg/0.4ml syringe SQ SCH (08:00)
[2019-03-02 10:00] VITALS: BP 154/81
[2019-03-02 13:55] VITALS: BP 161/86
--- NOTE | 2019-03-02 14:00 | NUR ---
Patient showered and tolerated well. Changed linens on bed.
--- NOTE | 2019-03-02 15:36 | NUR ---
Patient ambulated with nursing staff 300ft with standby assist and FWW
[2019-03-02 18:00] VITALS: BP 175/73
[2019-03-02] MEDS ORDERED: tetanus & diphtheria toxoid (Td) vaccine 0.5ml IMVAC ONE (18:45)
--- NOTE | 2019-03-02 18:49 | NUR ---
Problems reprioritized. Patient report given, questions answered & plan of care reviewed with Fang LINTON.
--- NOTE | 2019-03-02 18:51 | NUR ---
Patient in room ORTHO 4024. I have received report from SHAILA Moore and had the opportunity to ask questions and assume patient care.
[2019-03-02] MEDS: ROPINIRole 1mg tablet PO SCH (20:08)
[2019-03-02] MEDS: atorvastatin 10mg tablet PO SCH (20:10)
[2019-03-02] MEDS: nystatin 15 GM powder TP SCH (20:15)
[2019-03-02] MEDS: docusate sod 100mg capsule PO PRN (20:25)
[2019-03-02 22:00] VITALS: BP 184/92
[2019-03-03] VITALS (7 sets, daily range): BP systolic 139–177; BP diastolic 65–93
[2019-03-03 06:09] LABS: BASOPHILS % (AUTO) 0.3 % (0-1); EOSINOPHILS % (AUTO) 0.2 % (0-6); HEMATOCRIT 33.4 % (35.0-45.0); LYMPHOCYTES # (AUTO) 1.6 X10'3 (1.1-4.8); MEAN CORPUSCULAR HEMOGLOBIN 26.6 PG (27.0-31.0); MEAN CORPUSCULAR VOLUME 80.6 FL (78-98); MEAN PLATELET VOLUME 7.7 FL (7.4-10.4); MONOCYTES # (AUTO) 1.1 X10'3 (0-0.9); MONOCYTES % (AUTO) 10.8 % (2-12); NEUTROPHILS # (AUTO) 7.3 X10'3 (1.8-7.7); NEUTROPHILS % (AUTO) 72.7 % (42-75); PLATELET COUNT 182 X10'3 (140-440); RED BLOOD COUNT 4.15 X10'6 (4.20-5.60); RED CELL DISTRIBUTION WIDTH 20.6 % (11.5-14.5)
--- NOTE | 2019-03-03 06:21 | NUR ---
Problems reprioritized. Patient report given, questions answered & plan of care reviewed with SHAILA Parker.
[2019-03-03 06:29] LABS: ALANINE AMINOTRANSFERASE 27 U/L (12-78); ALBUMIN 2.6 G/DL (3.4-5.0); ALBUMIN/GLOBULIN RATIO 0.7 (1.1-1.5); ALKALINE PHOSPHATASE 69 IU/L (46-116); ANION GAP 9 (8-16); ASPARTATE AMINO TRANSFERASE 13 U/L (10-37); BILIRUBIN,TOTAL 0.4 MG/DL (0.1-1.0); BLOOD UREA NITROGEN 28 MG/DL (7-18); BUN/CREATININE RATIO 19.6 (6.6-38.0); CALCIUM 8.7 MG/DL (8.5-10.1); CHLORIDE 105 MMOL/L (99-107); CREATININE 1.43 MG/DL (0.40-0.90); GLUCOSE 100 MG/DL (70-104); POTASSIUM 4.2 MMOL/L (3.5-5.1); SODIUM 140 MMOL/L (135-145); TOTAL CARBON DIOXIDE 25.8 MMOL/L (24-32); TOTAL PROTEIN 6.1 G/DL (6.4-8.2); eGFR 36 ML/MIN
[2019-03-03] MEDS: apixaban 5mg tablet PO SCH (07:41)
[2019-03-03] MEDS: isosorbide mononitrate 30mg tab.SR.24H PO SCH (07:42)
[2019-03-03] MEDS: aspirin 81mg tab.chew PO SCH (07:42)
[2019-03-03] MEDS: montelukast 10mg tablet PO SCH (07:45)
[2019-03-03] MEDS: predniSONE 5mg tablet PO SCH (07:45)
[2019-03-03] MEDS: levoTHYROXINE 100mcg tablet PO SCH (07:45)
[2019-03-03] MEDS: nystatin 15 GM powder TP SCH ×3 (07:47→17:28)
[2019-03-03] MEDS: budesonide 0.5mg/2ml UD nebule IH SCH ×2 (08:00→19:42)
[2019-03-03] MEDS: K and/or MAG REPLACEMENT MC SCH (08:00)
[2019-03-03] MEDS: MIRABEGRON 50 MG PO SCH (08:00)
[2019-03-03 08:34] LABS: ANISOCYTOSIS 3+; PLATELET ESTIMATE NORMAL
[2019-03-03] MEDS ORDERED: carVEDilol 12.5mg tablet PO ONE (15:45)
--- NOTE | 2019-03-03 17:22 | NUR ---
Student documentation: I have reviewed and agree with all interventions, assessments performed and documented by Cherise Carson.
--- NOTE | 2019-03-03 18:00 | NUR ---
Patient in room ORTHO 4024. I have received report from [place] and had the opportunity to ask questions and assume patient care.
--- NOTE | 2019-03-03 18:30 | NUR ---
Problems reprioritized. Patient report given, questions answered & plan of care reviewed with Augustine LINTON and Shabbir RN.
[2019-03-03] MEDS: ipratropium/albuterol 3ml nebule NEB PRN (19:42)
[2019-03-03] MEDS: ROPINIRole 1mg tablet PO SCH (19:48)
[2019-03-03] MEDS: atorvastatin 10mg tablet PO SCH (19:48)
[2019-03-03] MEDS: carVEDilol 12.5mg tablet PO SCH (19:49)
[2019-03-04] VITALS (26 sets, daily range): BP systolic 106–182; BP diastolic 55–99
[2019-03-04 04:50] LABS: BASOPHILS % (AUTO) 0.2 % (0-1); EOSINOPHILS % (AUTO) 0.3 % (0-6); HEMOGLOBIN 10.9 g/dl (12.0-16.0); LYMPHOCYTES # (AUTO) 1.9 X10'3 (1.1-4.8); LYMPHOCYTES % (AUTO) 18.9 % (21-51); MEAN CORPUSCULAR HEMOGLOBIN 26.9 PG (27.0-31.0); MEAN CORPUSCULAR HGB CONC 33.1 g/dL (33.0-36.5); MEAN CORPUSCULAR VOLUME 81.4 FL (78-98); MEAN PLATELET VOLUME 7.9 FL (7.4-10.4); MONOCYTES # (AUTO) 1.1 X10'3 (0-0.9); MONOCYTES % (AUTO) 10.7 % (2-12); NEUTROPHILS % (AUTO) 69.9 % (42-75); PLATELET COUNT 172 X10'3 (140-440); RED BLOOD COUNT 4.05 X10'6 (4.20-5.60); RED CELL DISTRIBUTION WIDTH 21.5 % (11.5-14.5)
[2019-03-04 05:08] LABS: ALANINE AMINOTRANSFERASE 23 U/L (12-78); ALBUMIN 2.5 G/DL (3.4-5.0); ALBUMIN/GLOBULIN RATIO 0.8 (1.1-1.5); ALKALINE PHOSPHATASE 68 IU/L (46-116); ANION GAP 9 (8-16); ASPARTATE AMINO TRANSFERASE 8 U/L (10-37); BILIRUBIN,TOTAL 0.3 MG/DL (0.1-1.0); BLOOD UREA NITROGEN 32 MG/DL (7-18); BUN/CREATININE RATIO 21.9 (6.6-38.0); CALCIUM 8.5 MG/DL (8.5-10.1); CHLORIDE 106 MMOL/L (99-107); CREATININE 1.46 MG/DL (0.40-0.90); GLUCOSE 109 MG/DL (70-104); POTASSIUM 4.2 MMOL/L (3.5-5.1); SODIUM 140 MMOL/L (135-145); TOTAL CARBON DIOXIDE 25.5 MMOL/L (24-32); TOTAL PROTEIN 5.8 G/DL (6.4-8.2); eGFR 35 ML/MIN
--- NOTE | 2019-03-04 06:20 | NUR ---
Patient in room ORTHO 4024. I have received report from Augustine Holguin and Will and had the opportunity to ask questions and assume patient care.
--- NOTE | 2019-03-04 06:40 | NUR ---
Problems reprioritized. Patient report given, questions answered & plan of care reviewed with
[2019-03-04 06:46] LABS: ANISOCYTOSIS 3+; HYPOCHROMASIA 1+; PLATELET ESTIMATE NORMAL; POLYCHROMASIA 1+; TEAR DROP CELLS FEW
[2019-03-04] MEDS ORDERED: LIDOcaine 1% (10mg/ml) 2ml vial ONE (07:05)
[2019-03-04] MEDS: nystatin 15 GM powder TP SCH ×3 (08:00→20:50)
[2019-03-04] MEDS: predniSONE 5mg tablet PO SCH (08:00)
[2019-03-04] MEDS: aspirin 81mg tab.chew PO SCH (08:00)
[2019-03-04] MEDS: montelukast 10mg tablet PO SCH (08:00)
[2019-03-04] MEDS: MIRABEGRON 50 MG PO SCH (08:00)
[2019-03-04] MEDS: levoTHYROXINE 100mcg tablet PO SCH (08:00)
[2019-03-04] MEDS: carVEDilol 12.5mg tablet PO SCH ×2 (08:00→20:49)
[2019-03-04] MEDS: isosorbide mononitrate 30mg tab.SR.24H PO SCH (08:00)
[2019-03-04] MEDS: K and/or MAG REPLACEMENT MC SCH (08:00)
[2019-03-04] MEDS ORDERED: phenylephrine inj 20 MG in normal saline 250ml IV soln 250 ML IV PRN (08:07)
[2019-03-04] MEDS: budesonide 0.5mg/2ml UD nebule IH SCH ×2 (09:03→20:03)
--- NOTE | 2019-03-04 09:10 | NUR ---
Pt was taken to OR for procedure, then will transfer to ICU. All of pt's belongings were given to family.
--- NOTE | 2019-03-04 09:10 | NUR ---
Pt was wheeled down to OR, called report to recovery, spoke with Sara, advised of current condition.
[2019-03-04] MEDS ORDERED: heparin sodium, porcine/PF 100unit/ml 5ML syringe ONE (09:48)
[2019-03-04] MEDS ORDERED: heparin 10,000 units/1 ML INJ ONE (09:51)
[2019-03-04] MEDS ORDERED: ringers solution, lacted 1,000 ML IV SCH (09:52)
[2019-03-04] MEDS ORDERED: meperidine/PF 25mg/ml syringe IV PRN ×3 (09:55)
[2019-03-04] MEDS ORDERED: proCHLORperazine 10 MG/2 ml inj IV PRN (09:55)
[2019-03-04] MEDS ORDERED: morphine 4 MG/ML inj SYRINge IV PRN (09:55)
[2019-03-04] MEDS ORDERED: ondansetron/PF 4mg/2ml inj IV PRN (09:55)
[2019-03-04] MEDS ORDERED: propofol inj 20 ML IV ONE (10:03)
[2019-03-04] MEDS ORDERED: midazolam 2 mg/2 ml injection ONE (10:03)
[2019-03-04] MEDS ORDERED: rocuronium 10mg/ml inj IV ONE (10:03)
[2019-03-04] MEDS ORDERED: fentaNYL/PF 50MCG/1 ML 2ML syringe ONE (10:03)
[2019-03-04] MEDS ORDERED: sevoflurane 250ml liquid IH ONE (10:04)
[2019-03-04] MEDS ORDERED: dexamethasone sod phosphate 10mg/ml inj ONE (10:04)
[2019-03-04] MEDS ORDERED: clindamycin phosphate 150mg/ml inj. ONE (10:27)
[2019-03-04] MEDS ORDERED: ePHEDrine 50MG/ML INJ. ONE (10:37)
[2019-03-04] MEDS ORDERED: heparin 1,000unit/ml 10ml vial 10 ML ONE (10:38)
[2019-03-04] MEDS ORDERED: ondansetron/PF 4mg/2ml inj ONE (11:45)
[2019-03-04] MEDS ORDERED: glycopyrrolate 0.2mg/ml inj ONE (11:45)
[2019-03-04] MEDS ORDERED: neostigmine methylsulfate 1 MG/ML 10ml vial ONE (11:45)
--- NOTE | 2019-03-04 12:10 | NUR ---
ADMITTED TO PACU ACCOMPANIED BY ANESTHESIA AND OR CREW. AWAKE ON ARRIVAL ON NIPRIDE DRIP WITH SBP ~170. RIGHT RADIAL ART LINE AIR ZEORED AND CLAIBRATED WITH GOOD WAVE FORM, COMPLAINTS OF MILD DISCOMFORT, MEDICATED BY ANESTHESIA WITH A SOME RELIEF. INITIAL PHYSICAL ASSESSMENT DONE AND RECORDED.
[2019-03-04] MEDS: morphine 4 MG/ML inj SYRINge IV PRN ×2 (12:24→13:01)
--- NOTE | 2019-03-04 12:47 | NUR ---
Patient is coming to room CICU 2006. I have received report from Sara LINTON and had the opportunity to ask questions and assume patient care.
--- NOTE | 2019-03-04 13:00 | NUR ---
DISCHARGE CRITERIA MET, REPORT CALLED TO ICU NAHOMI. SBP ~150. 50CC OUT OF APRIL DRAIN, SOME DRAINAGE NOTED ON DRESSING MARKED PER PROTOCOL. TRANSPORTED TO ICU IN STABLE CONDITION WITH MONITOR AND RN.
--- NOTE | 2019-03-04 13:38 | NUR ---
Patient arrived at 1255 and some drainage was outlined on L Neck dressing. By 1315 dressing was saturated and draining down patient chest. APRIL drain was completely clotted despite recent emptying. New APRIL bulb applied, data deliverables manager came back and redressed surgical site with 4x4s and an island dressing. Once new bulb was applied bleeding slowed. Nipride increased to keep Sys BP between 150-160.
--- NOTE | 2019-03-04 15:53 | NUR ---
Dressing was saturated a second time. Called Dr. Brower who stated that as long as it was draining out of her body and not creating a hematoma it was ok for nursing to change the dressing PRN. New dressing applied, BP stable, patient tolerating well. Will continue to monitor.
[2019-03-04] MEDS ORDERED: isosorbide mononitrate 30mg tab.SR.24H PO ONE (17:35)
--- NOTE | 2019-03-04 17:42 | NUR ---
Dressing saturated again. During dressing change, APRIL drain fell out. New dressing applied after sutures were removed.
--- NOTE | 2019-03-04 18:14 | NUR ---
Problems reprioritized. Patient report given, questions answered & plan of care reviewed with Tavo LINTON.
[2019-03-04] MEDS: apixaban 5mg tablet PO SCH (20:00)
[2019-03-04] MEDS: ipratropium/albuterol 3ml nebule NEB PRN (20:03)
[2019-03-04] MEDS: atorvastatin 10mg tablet PO SCH (20:49)
[2019-03-04] MEDS: ROPINIRole 1mg tablet PO SCH (21:50)
--- NOTE | 2019-03-04 21:50 | NUR ---
RN Note -MD Communication Called Dr. Bhatt regarding pt still saturating dressings and reports an increased feeling of congestion in throat. MD coming in to evaluate pt
[2019-03-04] MEDS ORDERED: LIDOcaine 1% (10mg/ml) 2ml vial SQ ONE (22:10)
[2019-03-04] MEDS: ondansetron/PF 4mg/2ml inj IV PRN (23:13)
[2019-03-04] MEDS: nitroPRUSSIDE in NS 100 ML IV PRN (23:36)
[2019-03-05] VITALS (24 sets, daily range): BP systolic 116–180; BP diastolic 4–84
[2019-03-05] MEDS: ipratropium/albuterol 3ml nebule NEB PRN ×3 (02:38→19:52)
[2019-03-05 03:23] LABS: BASOPHILS % (AUTO) 0.1 % (0-1); EOSINOPHILS % (AUTO) 0 % (0-6); HEMATOCRIT 29.1 % (35.0-45.0); HEMOGLOBIN 9.4 g/dl (12.0-16.0); LYMPHOCYTES # (AUTO) 0.5 X10'3 (1.1-4.8); LYMPHOCYTES % (AUTO) 3.3 % (21-51); MEAN CORPUSCULAR HEMOGLOBIN 26.5 PG (27.0-31.0); MEAN CORPUSCULAR HGB CONC 32.4 g/dL (33.0-36.5); MEAN CORPUSCULAR VOLUME 81.7 FL (78-98); MEAN PLATELET VOLUME 8.1 FL (7.4-10.4); MONOCYTES # (AUTO) 1.1 X10'3 (0-0.9); MONOCYTES % (AUTO) 6.7 % (2-12); NEUTROPHILS # (AUTO) 14.1 X10'3 (1.8-7.7); NEUTROPHILS % (AUTO) 89.9 % (42-75); PLATELET COUNT 194 X10'3 (140-440); RED BLOOD COUNT 3.56 X10'6 (4.20-5.60); RED CELL DISTRIBUTION WIDTH 21.3 % (11.5-14.5); WHITE BLOOD COUNT 15.7 X10'3 (4.5-11.0)
[2019-03-05] MEDS: nitroPRUSSIDE in NS 100 ML IV PRN ×3 (03:25→20:44)
[2019-03-05 04:06] LABS: ALANINE AMINOTRANSFERASE 24 U/L (12-78); ALBUMIN 2.3 G/DL (3.4-5.0); ALBUMIN/GLOBULIN RATIO 0.8 (1.1-1.5); ALKALINE PHOSPHATASE 60 IU/L (46-116); ANION GAP 8 (8-16); ASPARTATE AMINO TRANSFERASE 15 U/L (10-37); BILIRUBIN,TOTAL 0.3 MG/DL (0.1-1.0); BLOOD UREA NITROGEN 34 MG/DL (7-18); BUN/CREATININE RATIO 20.2 (6.6-38.0); CHLORIDE 106 MMOL/L (99-107); CREATININE 1.68 MG/DL (0.40-0.90); GLUCOSE 195 MG/DL (70-104); MAGNESIUM 1.9 MG/DL (1.5-2.4); POTASSIUM 5.3 MMOL/L (3.5-5.1); SODIUM 138 MMOL/L (135-145); TOTAL CARBON DIOXIDE 23.7 MMOL/L (24-32); TOTAL PROTEIN 5.3 G/DL (6.4-8.2); eGFR 30 ML/MIN
[2019-03-05] MEDS: aspirin 81mg tab.chew PO SCH (08:00)
[2019-03-05] MEDS: MIRABEGRON 50 MG PO SCH (08:00)
[2019-03-05] MEDS: K and/or MAG REPLACEMENT MC SCH (08:00)
[2019-03-05] MEDS ORDERED: isosorbide mononitrate 30mg tab.SR.24H PO SCH (08:00)
[2019-03-05] MEDS: apixaban 5mg tablet PO SCH ×3 (08:00→20:58)
[2019-03-05] MEDS: predniSONE 5mg tablet PO SCH (08:07)
[2019-03-05] MEDS: montelukast 10mg tablet PO SCH (08:07)
[2019-03-05] MEDS: levoTHYROXINE 100mcg tablet PO SCH (08:07)
[2019-03-05] MEDS: nystatin 15 GM powder TP SCH ×3 (08:08→20:59)
[2019-03-05] MEDS: carVEDilol 12.5mg tablet PO SCH ×2 (08:09→20:59)
--- NOTE | 2019-03-05 08:26 | NUR ---
Took down neck dressing to see if bleeding had stopped or slowed. Last dressing change was around 0500 on NOCs per patient. No abnormal signs or symptoms of bleeding noted at this time; dressing changed at 0815.
[2019-03-05] MEDS: budesonide 0.5mg/2ml UD nebule IH SCH ×2 (09:49→19:51)
[2019-03-05] MEDS ORDERED: polyethylene glycol 3350 17gm powd pack PO ONE (12:00)
[2019-03-05] MEDS ORDERED: isosorbide mononitrate 30mg tab.SR.24H PO ONE (12:30)
--- NOTE | 2019-03-05 18:19 | NUR ---
Problems reprioritized. Patient report given, questions answered & plan of care reviewed with Mac RN.
[2019-03-05] MEDS ORDERED: aspirin 81mg tab.chew PO ONE (20:00)
[2019-03-05] MEDS: atorvastatin 10mg tablet PO SCH (20:58)
[2019-03-05] MEDS: carvedilol 6.25mg tablet PO SCH (20:58)
[2019-03-05] MEDS: ROPINIRole 1mg tablet PO SCH (20:58)
[2019-03-06] VITALS (24 sets, daily range): BP systolic 95–223; BP diastolic 36–189
[2019-03-06] MEDS: ondansetron/PF 4mg/2ml inj IV PRN (00:56)
[2019-03-06] MEDS: HYDROcodone/acetaminophen 5mg/325mg tablet PO PRN (00:57)
[2019-03-06] MEDS: nitroPRUSSIDE in NS 100 ML IV PRN ×3 (02:04→18:40)
[2019-03-06 02:38] LABS: BASOPHILS % (AUTO) 0.3 % (0-1); EOSINOPHILS % (AUTO) 0 % (0-6); HEMATOCRIT 24.3 % (35.0-45.0); LYMPHOCYTES # (AUTO) 1.1 X10'3 (1.1-4.8); LYMPHOCYTES % (AUTO) 7.6 % (21-51); MEAN CORPUSCULAR HEMOGLOBIN 26.6 PG (27.0-31.0); MEAN CORPUSCULAR HGB CONC 32.8 g/dL (33.0-36.5); MEAN CORPUSCULAR VOLUME 81.2 FL (78-98); MONOCYTES # (AUTO) 1.5 X10'3 (0-0.9); MONOCYTES % (AUTO) 10.1 % (2-12); NEUTROPHILS # (AUTO) 12.1 X10'3 (1.8-7.7); PLATELET COUNT 190 X10'3 (140-440); RED CELL DISTRIBUTION WIDTH 20.9 % (11.5-14.5); WHITE BLOOD COUNT 14.8 X10'3 (4.5-11.0)
[2019-03-06 02:42] LABS: ALANINE AMINOTRANSFERASE 20 U/L (12-78); ALBUMIN 2.3 G/DL (3.4-5.0); ALBUMIN/GLOBULIN RATIO 0.9 (1.1-1.5); ALKALINE PHOSPHATASE 54 IU/L (46-116); ANION GAP 7 (8-16); ASPARTATE AMINO TRANSFERASE 12 U/L (10-37); BILIRUBIN,TOTAL 0.2 MG/DL (0.1-1.0); BLOOD UREA NITROGEN 45 MG/DL (7-18); BUN/CREATININE RATIO 27.3 (6.6-38.0); CALCIUM 7.6 MG/DL (8.5-10.1); CHLORIDE 105 MMOL/L (99-107); CREATININE 1.65 MG/DL (0.40-0.90); GLUCOSE 197 MG/DL (70-104); SODIUM 137 MMOL/L (135-145); TOTAL CARBON DIOXIDE 24.7 MMOL/L (24-32); TOTAL PROTEIN 4.9 G/DL (6.4-8.2); eGFR 31 ML/MIN
[2019-03-06 02:47] LABS: POTASSIUM 4.8 MMOL/L (3.5-5.1)
--- NOTE | 2019-03-06 06:42 | NUR ---
[facility] I have received report from Blue LINTON and had the opportunity to ask questions and assume patient care. Addendum: 03/06/19 at 0643 by Winnie Parnell RN Amended: Links added.
[2019-03-06] MEDS: carVEDilol 12.5mg tablet PO SCH ×2 (07:38→20:17)
[2019-03-06] MEDS: isosorbide mononitrate 30mg tab.SR.24H PO SCH (07:38)
[2019-03-06] MEDS: carvedilol 6.25mg tablet PO SCH ×2 (07:38→20:15)
--- NOTE | 2019-03-06 07:38 | NUR ---
Dr. Thompson called and told RN to decrease Nipride down to 0.6. after he reviewed the patient's vital signs.
[2019-03-06] MEDS: montelukast 10mg tablet PO SCH (07:39)
[2019-03-06] MEDS: nystatin 15 GM powder TP SCH ×3 (07:39→20:18)
[2019-03-06] MEDS: predniSONE 5mg tablet PO SCH (07:39)
[2019-03-06] MEDS: levoTHYROXINE 100mcg tablet PO SCH (07:39)
[2019-03-06] MEDS: aspirin 81mg tab.chew PO SCH (07:39)
[2019-03-06] MEDS: K and/or MAG REPLACEMENT MC SCH (08:00)
[2019-03-06] MEDS: MIRABEGRON 50 MG PO SCH (08:00)
[2019-03-06] MEDS: budesonide 0.5mg/2ml UD nebule IH SCH ×2 (08:28→19:33)
--- NOTE | 2019-03-06 11:55 | NUR ---
Initial: Pt s/p L carotid endartectomy. PO 75% avg heart healthy meals meeting needs. LBM 03/01; colace BID PRN last given 03/02. ALEC d/w RN to make routine instead of PRN per surgeon approval. Will continue to monitor. Rec: 1. continue heart healthy diet 2. routine bowel care 3. wt per rx Addendum: 03/06/19 at [address] Amended: Links added.
[2019-03-06] MEDS: docusate sod 100mg capsule PO PRN (12:00)
--- NOTE | 2019-03-06 12:31 | NUR ---
PAGER ID: [phone] MESSAGE: Sahara Gutierrez [facility] 2007 is constipated and requesting Miralax. Can I order that for her please? Winnie LINTON x [phone]
--- NOTE | 2019-03-06 15:51 | NUR ---
Dr. Paula to see pt. Aware of weaning off Nipride. [facility]
[2019-03-06 16:23] LABS: BASOPHILS % (AUTO) 0.1 % (0-1); EOSINOPHILS % (AUTO) 0 % (0-6); HEMOGLOBIN 7.6 g/dl (12.0-16.0); LYMPHOCYTES # (AUTO) 0.6 X10'3 (1.1-4.8); LYMPHOCYTES % (AUTO) 4.6 % (21-51); MEAN CORPUSCULAR HEMOGLOBIN 26.3 PG (27.0-31.0); MEAN CORPUSCULAR HGB CONC 31.7 g/dL (33.0-36.5); MEAN CORPUSCULAR VOLUME 82.9 FL (78-98); MEAN PLATELET VOLUME 8.3 FL (7.4-10.4); MONOCYTES # (AUTO) 0.8 X10'3 (0-0.9); MONOCYTES % (AUTO) 6.4 % (2-12); NEUTROPHILS # (AUTO) 10.9 X10'3 (1.8-7.7); NEUTROPHILS % (AUTO) 88.9 % (42-75); PLATELET COUNT 179 X10'3 (140-440); RED CELL DISTRIBUTION WIDTH 21.1 % (11.5-14.5); WHITE BLOOD COUNT 12.3 X10'3 (4.5-11.0)
--- NOTE | 2019-03-06 17:42 | NUR ---
Dr. Luna here. Aware of decreased H/H and that pt. is on Eliquis.
--- NOTE | 2019-03-06 17:43 | NUR ---
Dressing changed to neck.
--- NOTE | 2019-03-06 18:19 | NUR ---
Problems reprioritized. Patient report given, questions answered & plan of care reviewed with angy LINTON. Addendum: 03/06/19 at 1819 by Winnie Parnell RN Amended: Links added.
--- NOTE | 2019-03-06 18:31 | NUR ---
Problems reprioritized. Patient report given, questions answered & plan of care reviewed with SHAILA Zhou.
--- NOTE | 2019-03-06 19:00 | NUR ---
Patient awake and alert in bed, finishing dinner. Patient is in good spirits. Patient denies any pressure or pain to her neck or throat, denies any difficulty swallowing her food. Dressing is clean, dry and intact to left neck. Bruising noted to the area around the dressing. Patients arterial line to her right radial artery, wave form is dampened, line and patients wrist repositioned with mild success in obtaining a reading. Patient is right handed and will not stop using her hand for various things. Education provided on why she should attempt to keep her wrist in the position it is placed. Patient is unsuccessful in doing so. Patient denies any pain at this time. Will continue to monitor.
[2019-03-06] MEDS: ipratropium/albuterol 3ml nebule NEB PRN (19:33)
[2019-03-06] MEDS: apixaban 5mg tablet PO SCH (20:17)
[2019-03-06] MEDS: atorvastatin 10mg tablet PO SCH (20:18)
[2019-03-06] MEDS: ROPINIRole 1mg tablet PO SCH (20:18)
--- NOTE | 2019-03-06 22:30 | NUR ---
Arterial line with dampened to absent wave form before and after repositioning and re- taping. Arterial line not functioning. Arterial line discontinued. Automatic cuff pressure in the 150's consistently. Nipride turned off. 2300: cuff pressure reading 179/72. Nipride restarted at 0.2 mcg/ kg/ min.
[2019-03-06] MEDS: polyethylene glycol 3350 17gm powd pack PO PRN (22:43)
[2019-03-07] VITALS (20 sets, daily range): BP systolic 112–171; BP diastolic 45–67
--- NOTE | 2019-03-07 05:20 | NUR ---
Patient very tearful. She is very worried that she will not be able to make it to her granddaughters on the .
--- NOTE | 2019-03-07 05:30 | NUR ---
Dressing to left carotid changed, serosanguineous drainage, small amount enough to saturate through the gauze while she was sleeping. Patient has L subclavian steal per providers note. Blood pressure cuff changed to the right arm. Cuff BP pressure 112/45. Nipride drip turned off.
--- NOTE | 2019-03-07 06:13 | NUR ---
Problems reprioritized. Patient report given, questions answered & plan of care reviewed with SHAILA Zhou.
--- NOTE | 2019-03-07 06:18 | NUR ---
[facility] I have received report from La LINTON and had the opportunity to ask questions and assume patient care. Addendum: 03/07/19 at 0619 by Winnie Parnell RN Amended: Links added.
[2019-03-07] MEDS: carVEDilol 12.5mg tablet PO SCH ×2 (07:24→19:43)
[2019-03-07] MEDS: predniSONE 5mg tablet PO SCH (07:24)
[2019-03-07] MEDS: montelukast 10mg tablet PO SCH (07:24)
[2019-03-07] MEDS: aspirin 81mg tab.chew PO SCH (07:24)
[2019-03-07] MEDS: apixaban 5mg tablet PO SCH ×2 (07:25→19:42)
[2019-03-07] MEDS: isosorbide mononitrate 30mg tab.SR.24H PO SCH (07:25)
[2019-03-07] MEDS: levoTHYROXINE 100mcg tablet PO SCH (07:25)
[2019-03-07] MEDS: nystatin 15 GM powder TP SCH ×3 (07:25→20:08)
[2019-03-07] MEDS: docusate sod 100mg capsule PO PRN (07:27)
[2019-03-07] MEDS: budesonide 0.5mg/2ml UD nebule IH SCH ×2 (07:31→20:00)
[2019-03-07] MEDS: K and/or MAG REPLACEMENT MC SCH (08:00)
[2019-03-07] MEDS: MIRABEGRON 50 MG PO SCH (08:00)
--- NOTE | 2019-03-07 08:10 | NUR ---
Usama Miguel and Dr. Kyle huizar saw pt. Order for CBC per Usama Miguel received.
[2019-03-07] MEDS: HYDROcodone/acetaminophen 5mg/325mg tablet PO PRN (09:09)
[2019-03-07] MEDS: ondansetron/PF 4mg/2ml inj IV PRN (09:10)
--- NOTE | 2019-03-07 09:45 | NUR ---
RN called lab for second time re. CBC that was ordered this am at 0800 that has not been drawn yet.
--- NOTE | 2019-03-07 09:50 | NUR ---
Dr. Nunez here to see pt.
[2019-03-07 10:23] LABS: BASOPHILS % (AUTO) 0.4 % (0-1); EOSINOPHILS # (AUTO) 0.1 X10'3 (0-0.9); EOSINOPHILS % (AUTO) 0.4 % (0-6); HEMATOCRIT 24.7 % (35.0-45.0); LYMPHOCYTES # (AUTO) 0.9 X10'3 (1.1-4.8); LYMPHOCYTES % (AUTO) 7.7 % (21-51); MEAN CORPUSCULAR HEMOGLOBIN 26.7 PG (27.0-31.0); MEAN CORPUSCULAR HGB CONC 32.5 g/dL (33.0-36.5); MEAN CORPUSCULAR VOLUME 82.3 FL (78-98); MEAN PLATELET VOLUME 7.9 FL (7.4-10.4); NEUTROPHILS # (AUTO) 10.3 X10'3 (1.8-7.7); NEUTROPHILS % (AUTO) 83.5 % (42-75); PLATELET COUNT 192 X10'3 (140-440); RED CELL DISTRIBUTION WIDTH 21.4 % (11.5-14.5); WHITE BLOOD COUNT 12.4 X10'3 (4.5-11.0)
[2019-03-07 11:49] LABS: PLATELET ESTIMATE NORMAL
[2019-03-07 11:50] LABS: ANISOCYTOSIS 3+
[2019-03-07 11:52] LABS: NUCLEATED RED BLOOD CELLS 1 /100WBC (0-0); TOTAL CELLS COUNTED 100
--- NOTE | 2019-03-07 12:20 | NUR ---
Dr. Thompson in to see pt. Orders received.
--- NOTE | 2019-03-07 16:06 | NUR ---
Pt. transferred to 3028B on bed after calling report to Lexi LINTON with all belongings in stable condition.
--- NOTE | 2019-03-07 18:00 | NUR ---
Patient in room PCU 3028. I have received report from Lexi LINTON and had the opportunity to ask questions and assume patient care.
--- NOTE | 2019-03-07 18:10 | NUR ---
Problems reprioritized. Patient report given, questions answered & plan of care reviewed with Amanda LINTON. Patient stable at transfer of care.
[2019-03-07] MEDS: ROPINIRole 1mg tablet PO SCH (20:07)
[2019-03-07] MEDS: atorvastatin 10mg tablet PO SCH (20:08)
[2019-03-08 02:00] VITALS: BP 138/60
[2019-03-08] MEDS: polyethylene glycol 3350 17gm powd pack PO PRN (04:42)
--- NOTE | 2019-03-08 05:06 | NUR ---
Patient slept well this shift. Was able to stand and use the bedside commode tonight. Will continue to monitor.
[2019-03-08 05:18] LABS: BASOPHILS % (AUTO) 0.1 % (0-1); EOSINOPHILS % (AUTO) 0.3 % (0-6); HEMOGLOBIN 8.1 g/dl (12.0-16.0); LYMPHOCYTES # (AUTO) 1.7 X10'3 (1.1-4.8); LYMPHOCYTES % (AUTO) 14.7 % (21-51); MEAN CORPUSCULAR HEMOGLOBIN 26.7 PG (27.0-31.0); MEAN CORPUSCULAR HGB CONC 32.3 g/dL (33.0-36.5); MEAN CORPUSCULAR VOLUME 82.8 FL (78-98); MEAN PLATELET VOLUME 7.9 FL (7.4-10.4); MONOCYTES # (AUTO) 0.9 X10'3 (0-0.9); MONOCYTES % (AUTO) 7.7 % (2-12); NEUTROPHILS # (AUTO) 9.1 X10'3 (1.8-7.7); NEUTROPHILS % (AUTO) 77.2 % (42-75); PLATELET COUNT 189 X10'3 (140-440); RED BLOOD COUNT 3.02 X10'6 (4.20-5.60); RED CELL DISTRIBUTION WIDTH 21.2 % (11.5-14.5); WHITE BLOOD COUNT 11.8 X10'3 (4.5-11.0)
[2019-03-08 05:28] LABS: ALANINE AMINOTRANSFERASE 24 U/L (12-78); ALBUMIN 2.4 G/DL (3.4-5.0); ALBUMIN/GLOBULIN RATIO 0.8 (1.1-1.5); ALKALINE PHOSPHATASE 56 IU/L (46-116); ANION GAP 7 (8-16); ASPARTATE AMINO TRANSFERASE 15 U/L (10-37); BILIRUBIN,TOTAL 0.3 MG/DL (0.1-1.0); BLOOD UREA NITROGEN 32 MG/DL (7-18); BUN/CREATININE RATIO 21.1 (6.6-38.0); CALCIUM 8.2 MG/DL (8.5-10.1); CHLORIDE 109 MMOL/L (99-107); CREATININE 1.52 MG/DL (0.40-0.90); GLUCOSE 104 MG/DL (70-104); MAGNESIUM 2.3 MG/DL (1.5-2.4); POTASSIUM 4.6 MMOL/L (3.5-5.1); SODIUM 142 MMOL/L (135-145); TOTAL CARBON DIOXIDE 26.2 MMOL/L (24-32); TOTAL PROTEIN 5.3 G/DL (6.4-8.2); eGFR 34 ML/MIN
--- NOTE | 2019-03-08 06:26 | NUR ---
Patient in room PCU 3018. I have received report from Amanda LINTON and had the opportunity to ask questions and assume patient care.
--- NOTE | 2019-03-08 06:31 | NUR ---
Problems reprioritized. Patient report given, questions answered & plan of care reviewed with Lexi LINTON.
[2019-03-08 06:43] LABS: ANISOCYTOSIS 3+; NUCLEATED RED BLOOD CELLS 1 /100WBC (0-0); PLATELET ESTIMATE NORMAL; TOTAL CELLS COUNTED 100
[2019-03-08 06:44] LABS: HYPOCHROMASIA 2+; POLYCHROMASIA 2+
[2019-03-08 06:45] LABS: POIKILOCYTOSIS FEW
[2019-03-08 07:00] VITALS: BP 172/64
[2019-03-08] MEDS: montelukast 10mg tablet PO SCH (07:34)
[2019-03-08] MEDS: isosorbide mononitrate 30mg tab.SR.24H PO SCH (07:35)
[2019-03-08] MEDS: levoTHYROXINE 100mcg tablet PO SCH (07:35)
[2019-03-08] MEDS: carVEDilol 12.5mg tablet PO SCH (07:36)
[2019-03-08] MEDS: predniSONE 5mg tablet PO SCH (07:37)
[2019-03-08] MEDS: apixaban 5mg tablet PO SCH (07:37)
[2019-03-08] MEDS: aspirin 81mg tab.chew PO SCH (07:37)
[2019-03-08] MEDS: nystatin 15 GM powder TP SCH ×2 (07:38→13:00)
[2019-03-08] MEDS: K and/or MAG REPLACEMENT MC SCH (08:00)
[2019-03-08] MEDS: budesonide 0.5mg/2ml UD nebule IH SCH (08:05)
[2019-03-08] MEDS ORDERED: bisacodyl 10mg suppository rectal RC STA (09:36)
[2019-03-08] MEDS ORDERED: CARV-50 PO (10:34)
[2019-03-08 11:00] VITALS: BP 104/51
--- NOTE | 2019-03-08 11:12 | NUR ---
PAGER ID: [phone] MESSAGE: [id number]. Patient ambulated 50ft with walker, did not sound congested during ambulation. Patient stated she didn't feel strong enough to go further. Lexi [phone]
--- NOTE | 2019-03-08 14:51 | NUR ---
PAGER ID: [phone] MESSAGE: Jerome PeytonGoldy. Patient would like to talk to you about a medication that has been stopped on discharge. Lexi [phone]
--- NOTE | 2019-03-08 15:50 | NUR ---
Patient discharged at 1547 home with son. All belongings sent with patient, discharge packet and instructions reviewed before signing. PIV removed with cannula intact and telemetry monitoring discontinued. Rx called in to [facility] in [place], [place]. Patient was stable, alert and oriented at time of discharge. Follow up scheduled with Dr. Mix. Patient was wheeled down by staff and left via private vehicle.
== END 2019-03-08 15:41 | disposition home health service (06) | DRG 38 ==
LOC: ER 11:40 → ORTHO 4S 16:37 → CMPBEDREQ 19:46 → CICU 2S 03-04 11:00 → PCU 3S 03-07 14:00
PROVIDERS: ADMIT Family Medicine; ATTEND Family Medicine
PROC: 3E0234Z Introduction of Serum, Toxoid and Vaccine into Muscle, Percutaneous Approach (ICD-10-PCS; 2019-03-02)
PROC: 03UJ0KZ Supplement Left Common Carotid Artery with Nonautologous Tissue Substitute, Open Approach (ICD-10-PCS; 2019-03-04)
PROC: 03UL0KZ Supplement Left Internal Carotid Artery with Nonautologous Tissue Substitute, Open Approach (ICD-10-PCS; 2019-03-04)
PROC: 03UN0KZ Supplement Left External Carotid Artery with Nonautologous Tissue Substitute, Open Approach (ICD-10-PCS; 2019-03-04)
PROC: 03CJ0Z6 (ICD-10-PCS; 2019-03-04)
PROC: 03CL0ZZ Extirpation of Matter from Left Internal Carotid Artery, Open Approach (ICD-10-PCS; 2019-03-04)
PROC: 03CN0ZZ Extirpation of Matter from Left External Carotid Artery, Open Approach (ICD-10-PCS; principal; 2019-03-04 10:04)
DX: I65.22 Occlusion and stenosis of left carotid artery (principal); I50.32 Chronic diastolic (congestive) heart failure; I69.354 Hemiplegia and hemiparesis following cerebral infarction affecting left non-dominant side; I13.0 Hypertensive heart and chronic kidney disease with heart failure and stage 1 through stage 4 chronic kidney disease, or unspecified chronic kidney disease; I82.502 Chronic embolism and thrombosis of unspecified deep veins of left lower extremity; D72.829 Elevated white blood cell count, unspecified; E03.9 Hypothyroidism, unspecified; E78.00 Pure hypercholesterolemia, unspecified; E78.5 Hyperlipidemia, unspecified; I25.10 Atherosclerotic heart disease of native coronary artery without angina pectoris; I34.0 Nonrheumatic mitral (valve) insufficiency; N18.3 Chronic kidney disease, stage 3 (moderate); E66.9 Obesity, unspecified; I73.9 Peripheral vascular disease, unspecified; I49.5 Sick sinus syndrome; I48.0 Paroxysmal atrial fibrillation; E87.6 Hypokalemia; J44.9 Chronic obstructive pulmonary disease, unspecified; R47.02 Dysphasia; D64.9 Anemia, unspecified; Z79.01 Long term (current) use of anticoagulants; Z79.51 Long term (current) use of inhaled steroids; Z79.890 Hormone replacement therapy; Z82.3 Family history of stroke; Z82.49 Family history of ischemic heart disease and other diseases of the circulatory system; Z85.3 Personal history of malignant neoplasm of breast; Z86.711 Personal history of pulmonary embolism; I25.2 Old myocardial infarction; Z87.891 Personal history of nicotine dependence; Z95.0 Presence of cardiac pacemaker; Z95.1 Presence of aortocoronary bypass graft; Z23 Encounter for immunization; Z68.25 Body mass index [BMI] 25.0-25.9, adult; Z88.0 Allergy status to penicillin; Z88.7 Allergy status to serum and vaccine; Z88.8 Allergy status to other drugs, medicaments and biological substances; Z87.01 Personal history of pneumonia (recurrent); Z79.899 Other long term (current) drug therapy; Z79.82 Long term (current) use of aspirin; Z95.5 Presence of coronary angioplasty implant and graft; Y83.8 Other surgical procedures as the cause of abnormal reaction of the patient, or of later complication, without mention of misadventure at the time of the procedure; Y92.238 Other place in hospital as the place of occurrence of the external cause; S10.93XA Contusion of unspecified part of neck, initial encounter
CPT/HCPCS: 36415; 70450; 71045; 80053; 80061; 82948; 83735; 84443; 84484; 85025; 85610; 85730; 86885; 86900; 86901; 87081; 92508; 92616; 93005; 93306; 93880; 94640; 94667; 94668; 94760; 95813; 95816; 97161; 97530; 99285; A4618; A6258; A6449; A7000; C1768; G0378; J0780; J1100; J1642; J1644; J2001; J2175; J2250; J2270; J2370; J2405; J2704; J2710; J3010; J3490; J7040; J7050; J7120; J7512; J7626

== ENCOUNTER 2019-03-14 12:15 | Inpatient (IN) | payer MEDICARE, OTHER ==
[~2019-03-14] VITALS: Ht 165.1 cm; Wt 70.0 kg
[~2019-03-14 12:15] MED LIST changes: -BUME1TAB8 PO; -DILT120C51 PO; -FLUT16SP2 BOTHNARES; -FURO40TA4 PO; -PRED10TA PO; +PRED5TAB49 PO; +ROPI1TAB4 PO
[2019-03-14] MEDS ORDERED: ipratropium/albuterol 3ml nebule NEB ONE (12:30)
[2019-03-14 12:58] LABS: BASOPHILS # (AUTO) 0.1 X10'3 (0-0.2); BASOPHILS % (AUTO) 0.4 % (0-1); EOSINOPHILS % (AUTO) 0.2 % (0-6); HEMATOCRIT 29.8 % (35.0-45.0); HEMOGLOBIN 9.6 g/dl (12.0-16.0); LYMPHOCYTES # (AUTO) 1.5 X10'3 (1.1-4.8); LYMPHOCYTES % (AUTO) 8.3 % (21-51); MEAN CORPUSCULAR HEMOGLOBIN 26.8 PG (27.0-31.0); MEAN CORPUSCULAR HGB CONC 32.3 g/dL (33.0-36.5); MEAN PLATELET VOLUME 7.8 FL (7.4-10.4); MONOCYTES # (AUTO) 1.9 X10'3 (0-0.9); MONOCYTES % (AUTO) 10.4 % (2-12); NEUTROPHILS # (AUTO) 14.6 X10'3 (1.8-7.7); NEUTROPHILS % (AUTO) 80.7 % (42-75); PLATELET COUNT 310 X10'3 (140-440); RED BLOOD COUNT 3.59 X10'6 (4.20-5.60); RED CELL DISTRIBUTION WIDTH 21.1 % (11.5-14.5); WHITE BLOOD COUNT 18.1 X10'3 (4.5-11.0)
[2019-03-14 13:20] LABS: ALANINE AMINOTRANSFERASE 29 U/L (12-78); ALBUMIN 3.2 G/DL (3.4-5.0); ALBUMIN/GLOBULIN RATIO 1.1 (1.1-1.5); ALKALINE PHOSPHATASE 71 IU/L (46-116); ANION GAP 10 (8-16); ASPARTATE AMINO TRANSFERASE 12 U/L (10-37); BILIRUBIN,TOTAL 0.9 MG/DL (0.1-1.0); BLOOD UREA NITROGEN 43 MG/DL (7-18); BUN/CREATININE RATIO 24.2 (6.6-38.0); CALCIUM 8.2 MG/DL (8.5-10.1); CHLORIDE 100 MMOL/L (99-107); CREATININE 1.78 MG/DL (0.40-0.90); GLUCOSE 159 MG/DL (70-104); SODIUM 140 MMOL/L (135-145); TOTAL CARBON DIOXIDE 29.6 MMOL/L (24-32); TOTAL PROTEIN 6.1 G/DL (6.4-8.2); eGFR 28 ML/MIN
[2019-03-14 13:28] LABS: POTASSIUM 2.9 MMOL/L (3.5-5.1)
[2019-03-14] MEDS ORDERED: potassium 10mEq/100ml NS w/LIDOcaine (10mg/bag) IV SCH (13:30)
[2019-03-14] MEDS ORDERED: potassium CL 10mEq/100ml bag 100 ML IV ONE (13:35)
[2019-03-14 13:53] LABS: ANISOCYTOSIS 3+; PLATELET ESTIMATE NORMAL; POLYCHROMASIA 1+
[2019-03-14 13:54] LABS: MICROCYTOSIS 1+
[2019-03-14 13:55] LABS: LARGE PLATELETS FEW
[2019-03-14] MEDS ORDERED: methylPREDNISolone sod succ 125mg/2ml vial IV ONE (14:05)
[2019-03-14] MEDS ORDERED: CefTRIAXone 2gm/D5W 50ml 50 ML IV ONE (14:05)
[2019-03-14] MEDS ORDERED: ondansetron/PF 4mg/2ml inj IV PRN (14:20)
[2019-03-14] MEDS ORDERED: acetaminophen 325mg tablet PO PRN (14:20)
[2019-03-14] MEDS ORDERED: magnesium hydroxide 30ml (MOM) UD suspension PO PRN (14:20)
[2019-03-14] MEDS ORDERED: mag hydrox/Alum hydrox/simeth 30ml oral suspension PO PRN (14:20)
[2019-03-14] MEDS ORDERED: CARV25TA2 PO (14:46)
[2019-03-14] MEDS: ipratropium/albuterol 3ml nebule NEB SCH ×3 (15:00→23:06)
[2019-03-14 16:10] VITALS: BP 156/77
--- NOTE | 2019-03-14 17:49 | NUR ---
Patient in room PCU 3012. I have received report from Kristy in ED and had the opportunity to ask questions and assume patient care.
[2019-03-14 18:00] VITALS: BP 127/45
--- NOTE | 2019-03-14 18:27 | NUR ---
I have reviewed and agree with all interventions, assessments performed and documented by Franca LINTON.
--- NOTE | 2019-03-14 18:27 | NUR ---
Problems reprioritized. Patient report given, questions answered & plan of care reviewed with Flakita.
[2019-03-14] MEDS ORDERED: heparin, porcine 5000 units/ml vial SQ SCH (20:00)
[2019-03-14] MEDS ORDERED: sodium phosphate inj. 15 MMOL in dextrose 5%-water 150 ML IV PRN (20:25)
[2019-03-14] MEDS ORDERED: magnesium Cl slow-release 64mg tablet PO PRN (20:25)
[2019-03-14] MEDS ORDERED: sodium phosphate inj. 30 MMOL in dextrose 5%-water 250 ML IV PRN (20:25)
[2019-03-14] MEDS ORDERED: magnesium 2GM in 50ml NS 50 ML IV PRN (20:25)
[2019-03-14] MEDS ORDERED: magnesium 4gm in 100ml NS 100 ML IV PRN (20:25)
[2019-03-14] MEDS ORDERED: Neutra Phos packet PO PRN (20:25)
[2019-03-14] MEDS ORDERED: potassium Cl 20 mEq SR tablet PO PRN (20:25)
[2019-03-14] MEDS ORDERED: potassium CL 10mEq/100ml bag 100 ML IV PRN ×2 (20:25)
[2019-03-14] MEDS: methylPREDNISolone sod succ 125mg/2ml vial IV SCH (20:45)
[2019-03-14] MEDS: lactobacillus rhamnosus 10,000 MMU CELLS/CAPSULE PO SCH (20:46)
[2019-03-14] MEDS: ROPINIRole 1mg tablet PO SCH (20:46)
[2019-03-14] MEDS: carVEDilol 12.5mg tablet PO SCH (20:46)
[2019-03-14] MEDS: apixaban 5mg tablet PO SCH (20:46)
[2019-03-14] MEDS ORDERED: atorvastatin 10mg tablet PO SCH (21:00)
[2019-03-14 22:00] VITALS: BP 159/74
[2019-03-14] MEDS: ipratropium/albuterol 3ml nebule IH SCH (23:06)
[2019-03-15] VITALS (7 sets, daily range): BP systolic 99–152; BP diastolic 49–71
--- NOTE | 2019-03-15 02:48 | NUR ---
Pt c/o angina, says she sometimes take SL Nitro at home for this. Paged Dr. Aden, will obtain EKG in meantime to check for rhythm changes or ST elevation/depression.
--- NOTE | 2019-03-15 02:51 | NUR ---
Dr. Aden ordered PRN Nitro SL for patient, said to notify him if any ST changes identified on EKG.
[2019-03-15] MEDS: ipratropium/albuterol 3ml nebule NEB SCH ×2 (03:00→07:07)
[2019-03-15] MEDS: ipratropium/albuterol 3ml nebule IH SCH ×3 (03:00→21:00)
[2019-03-15] MEDS: nitroGLYCERIN 0.4mg SUBLingual tab SL PRN ×3 (03:07→03:19)
[2019-03-15] MEDS ORDERED: morphine 2 MG/ML inj. syringe IV PRN (03:25)
[2019-03-15] MEDS ORDERED: nitroGLYCERIN 1gm ointment UD TP ONE (03:25)
--- NOTE | 2019-03-15 04:02 | NUR ---
Dr. Aden on unit for another pt, have tried the Nitro SL Q5min x3, pt still c/o chest pain around a 4. He ordered Morphine, repeat troponin series, and nitro paste. Will also send AM labs at this time.
[2019-03-15 04:07] LABS: BASOPHILS % (AUTO) 0.3 % (0-1); EOSINOPHILS % (AUTO) 0 % (0-6); HEMATOCRIT 29.5 % (35.0-45.0); HEMOGLOBIN 9.7 g/dl (12.0-16.0); LYMPHOCYTES # (AUTO) 0.3 X10'3 (1.1-4.8); LYMPHOCYTES % (AUTO) 3.1 % (21-51); MEAN CORPUSCULAR HEMOGLOBIN 27.1 PG (27.0-31.0); MEAN CORPUSCULAR HGB CONC 32.9 g/dL (33.0-36.5); MEAN CORPUSCULAR VOLUME 82.5 FL (78-98); MONOCYTES # (AUTO) 0.2 X10'3 (0-0.9); MONOCYTES % (AUTO) 1.5 % (2-12); NEUTROPHILS # (AUTO) 10.2 X10'3 (1.8-7.7); NEUTROPHILS % (AUTO) 95.1 % (42-75); PLATELET COUNT 292 X10'3 (140-440); RED BLOOD COUNT 3.58 X10'6 (4.20-5.60); RED CELL DISTRIBUTION WIDTH 21.5 % (11.5-14.5); WHITE BLOOD COUNT 10.7 X10'3 (4.5-11.0)
--- NOTE | 2019-03-15 04:12 | NUR ---
Pt reporting that chest pain is feeling much better now, only 2/10. Will continue to monitor and check for abnormal lab results.
[2019-03-15 04:29] LABS: ALBUMIN 3.1 G/DL (3.4-5.0); ANION GAP 11 (8-16); BLOOD UREA NITROGEN 37 MG/DL (7-18); BUN/CREATININE RATIO 19.2 (6.6-38.0); CALCIUM 8.1 MG/DL (8.5-10.1); CHLORIDE 100 MMOL/L (99-107); CREATININE 1.93 MG/DL (0.40-0.90); GLUCOSE 257 MG/DL (70-104); MAGNESIUM 2.1 MG/DL (1.5-2.4); PHOSPHORUS 4.6 MG/DL (2.3-4.5); POTASSIUM 3.4 MMOL/L (3.5-5.1); SODIUM 138 MMOL/L (135-145); TOTAL CARBON DIOXIDE 26.6 MMOL/L (24-32); TROPONIN I < 0.04 NG/ML (0.0-0.05); eGFR 26 ML/MIN
[2019-03-15 04:52] LABS: ANISOCYTOSIS 3+; PLATELET ESTIMATE NORMAL
--- NOTE | 2019-03-15 06:14 | NUR ---
Patient in room PCU 3012. I have received report from Flakita and had the opportunity to ask questions and assume patient care.
[2019-03-15] MEDS: levoFLOXACIN-Levaquin 250mg/D5 50 ML IV SCH (07:22)
[2019-03-15] MEDS: lactobacillus rhamnosus 10,000 MMU CELLS/CAPSULE PO SCH ×2 (07:27→20:50)
[2019-03-15] MEDS: isosorbide mononitrate 30mg tab.SR.24H PO SCH (07:28)
[2019-03-15] MEDS: apixaban 5mg tablet PO SCH (07:29)
[2019-03-15] MEDS: potassium Cl 20 mEq SR tablet PO PRN ×3 (07:30→20:50)
[2019-03-15] MEDS: carVEDilol 12.5mg tablet PO SCH ×2 (07:30→20:53)
[2019-03-15] MEDS: montelukast 10mg tablet PO SCH (07:30)
[2019-03-15] MEDS: levoTHYROXINE 100mcg tablet PO SCH (07:30)
[2019-03-15] MEDS: methylPREDNISolone sod succ 125mg/2ml vial IV SCH ×2 (07:31→20:55)
[2019-03-15] MEDS: aspirin 81mg tab.chew PO SCH (07:31)
[2019-03-15] MEDS ORDERED: MIRABEGRON 50 MG PO SCH (08:00)
[2019-03-15] MEDS: K and/or MAG REPLACEMENT MC SCH (08:00)
--- NOTE | 2019-03-15 11:27 | NUR ---
Sent page to Dr. curtis PAGER ID: [phone] MESSAGE: [id number] Jenny Winslow, critical lab value troponin 2.04. Franca LINTON [phone]
--- NOTE | 2019-03-15 12:52 | NUR ---
Malnutrition consult: Pt admit w/ COPD exacerbation. No significant weakness, edema/wounds present. PO 75% avg first meal this admit and current wt pt stated. At this time pt fails to meet minimum 2 malnutrition criteria; will continue to monitor. Addendum: 03/15/19 at [address] Amended: Links added.
--- NOTE | 2019-03-15 16:42 | NUR ---
Paged Dr. Davis PAGER ID: [phone] MESSAGE: [id number] Jenny Winslow critical troponin 3. Zuleyma LINTON [phone]
--- NOTE | 2019-03-15 16:49 | NUR ---
left message for Dr. Nunez with patients current troponin level at 3.09.
[2019-03-15] MEDS ORDERED: heparin 10,000 units/1 ML INJ IV PRN (17:20)
--- NOTE | 2019-03-15 18:15 | NUR ---
Patient in room PCU 3012. I have received report from Zuleyma LINTON and had the opportunity to ask questions and assume patient care. Patient is eating dinner and has been started on a heparin drip. Will continue to monitor.
[2019-03-15] MEDS: heparin 25,000 UNIT/250ml bag 250 ML IV SCH (18:16)
--- NOTE | 2019-03-15 18:28 | NUR ---
Problems reprioritized. Patient report given, questions answered & plan of care reviewed with Ida. Addendum: 03/15/19 at 1831 by Franca Thurman RN Amended note: Report given to Shanita
--- NOTE | 2019-03-15 18:40 | NUR ---
I have reviewed and agree with all interventions, assessments performed and documented by Franca LINTON.
[2019-03-15] MEDS: atorvastatin 20mg tablet PO SCH (20:51)
[2019-03-15] MEDS: ROPINIRole 1mg tablet PO SCH (20:52)
[2019-03-16 02:00] VITALS: BP 138/61
[2019-03-16] MEDS: ipratropium/albuterol 3ml nebule IH SCH ×4 (03:00→21:00)
[2019-03-16] MEDS: heparin 25,000 UNIT/250ml bag 250 ML IV SCH (03:34)
[2019-03-16 05:00] LABS: BASOPHILS % (AUTO) 0.1 % (0-1); EOSINOPHILS % (AUTO) 0 % (0-6); HEMOGLOBIN 8.5 g/dl (12.0-16.0); LYMPHOCYTES # (AUTO) 0.4 X10'3 (1.1-4.8); LYMPHOCYTES % (AUTO) 2.4 % (21-51); MEAN CORPUSCULAR HEMOGLOBIN 26.1 PG (27.0-31.0); MEAN CORPUSCULAR HGB CONC 31.5 g/dL (33.0-36.5); MEAN PLATELET VOLUME 8.3 FL (7.4-10.4); MONOCYTES # (AUTO) 0.7 X10'3 (0-0.9); MONOCYTES % (AUTO) 4.6 % (2-12); NEUTROPHILS # (AUTO) 14.1 X10'3 (1.8-7.7); NEUTROPHILS % (AUTO) 92.9 % (42-75); PLATELET COUNT 255 X10'3 (140-440); RED BLOOD COUNT 3.25 X10'6 (4.20-5.60); RED CELL DISTRIBUTION WIDTH 21.3 % (11.5-14.5); WHITE BLOOD COUNT 15.2 X10'3 (4.5-11.0)
[2019-03-16 05:28] LABS: ALBUMIN 2.7 G/DL (3.4-5.0); ANION GAP 6 (8-16); BLOOD UREA NITROGEN 42 MG/DL (7-18); BUN/CREATININE RATIO 23.1 (6.6-38.0); CALCIUM 8.5 MG/DL (8.5-10.1); CHLORIDE 100 MMOL/L (99-107); CREATININE 1.82 MG/DL (0.40-0.90); GLUCOSE 243 MG/DL (70-104); MAGNESIUM 2.8 MG/DL (1.5-2.4); PHOSPHORUS 3.1 MG/DL (2.3-4.5); POTASSIUM 5.1 MMOL/L (3.5-5.1); SODIUM 135 MMOL/L (135-145); TOTAL CARBON DIOXIDE 28.9 MMOL/L (24-32); eGFR 27 ML/MIN
--- NOTE | 2019-03-16 05:52 | NUR ---
Lab called with critical troponin - 2.0 - down from yesterday.
[2019-03-16 06:32] LABS: PLATELET ESTIMATE NORMAL
[2019-03-16 06:33] LABS: ANISOCYTOSIS 3+; POLYCHROMASIA 2+
--- NOTE | 2019-03-16 06:33 | NUR ---
Patient in room PCU 3012. I have received report from cortez and had the opportunity to ask questions and assume patient care.
--- NOTE | 2019-03-16 06:33 | NUR ---
Problems reprioritized. Patient report given, questions answered & plan of care reviewed with Zuleyma LINTON and Elizabeth LINTON.
[2019-03-16 06:34] LABS: HYPOCHROMASIA 1+; TEAR DROP CELLS FEW
[2019-03-16 07:00] VITALS: BP 146/59
[2019-03-16] MEDS: levoFLOXACIN-Levaquin 250mg/D5 50 ML IV SCH (07:29)
[2019-03-16] MEDS: acetylcysteine 200 MG/ml 4ml vial PO SCH ×2 (07:29→20:15)
[2019-03-16] MEDS: levoTHYROXINE 100mcg tablet PO SCH (07:30)
[2019-03-16] MEDS: methylPREDNISolone sod succ 125mg/2ml vial IV SCH ×2 (07:30→20:17)
[2019-03-16] MEDS: isosorbide mononitrate 30mg tab.SR.24H PO SCH (07:31)
[2019-03-16] MEDS: montelukast 10mg tablet PO SCH (07:32)
[2019-03-16] MEDS: aspirin 81mg tab.chew PO SCH (07:32)
[2019-03-16] MEDS: carVEDilol 12.5mg tablet PO SCH ×2 (07:32→20:16)
[2019-03-16] MEDS: lactobacillus rhamnosus 10,000 MMU CELLS/CAPSULE PO SCH ×2 (07:33→20:16)
[2019-03-16] MEDS: K and/or MAG REPLACEMENT MC SCH (07:54)
[2019-03-16 11:00] VITALS: BP 134/55
[2019-03-16 15:00] VITALS: BP 130/59
[2019-03-16 18:00] VITALS: BP 104/50
--- NOTE | 2019-03-16 18:22 | NUR ---
I have reviewed and agree with all interventions, assessments performed and documented by Franca LINTON.
--- NOTE | 2019-03-16 18:23 | NUR ---
Problems reprioritized. Patient report given, questions answered & plan of care reviewed with Maine LINTON.
[2019-03-16] MEDS ORDERED: enoxaparin 80mg/0.8ml syringe SUBCUT ONE (20:00)
[2019-03-16] MEDS: apixaban 5mg tablet PO SCH (20:16)
[2019-03-16] MEDS: ROPINIRole 1mg tablet PO SCH (20:17)
[2019-03-16] MEDS: atorvastatin 20mg tablet PO SCH (20:17)
[2019-03-16 22:00] VITALS: BP 136/62
[2019-03-17 02:00] VITALS: BP 115/58
[2019-03-17] MEDS: ipratropium/albuterol 3ml nebule IH SCH ×3 (03:00→16:03)
--- NOTE | 2019-03-17 05:22 | NUR ---
Patient coughing up blood, states has been happening the past couple of days but a little more than before. Dr. Alvarado notified, no new orders. Will continue to monitor.
[2019-03-17 05:23] LABS: BASOPHILS % (AUTO) 0.1 % (0-1); EOSINOPHILS % (AUTO) 0 % (0-6); HEMATOCRIT 26.2 % (35.0-45.0); HEMOGLOBIN 8.5 g/dl (12.0-16.0); LYMPHOCYTES # (AUTO) 0.3 X10'3 (1.1-4.8); LYMPHOCYTES % (AUTO) 1.9 % (21-51); MEAN CORPUSCULAR HEMOGLOBIN 26.6 PG (27.0-31.0); MEAN CORPUSCULAR HGB CONC 32.6 g/dL (33.0-36.5); MEAN CORPUSCULAR VOLUME 81.8 FL (78-98); MEAN PLATELET VOLUME 8.3 FL (7.4-10.4); MONOCYTES # (AUTO) 0.8 X10'3 (0-0.9); MONOCYTES % (AUTO) 4.5 % (2-12); NEUTROPHILS # (AUTO) 15.8 X10'3 (1.8-7.7); NEUTROPHILS % (AUTO) 93.5 % (42-75); PLATELET COUNT 245 X10'3 (140-440); RED BLOOD COUNT 3.21 X10'6 (4.20-5.60); WHITE BLOOD COUNT 16.9 X10'3 (4.5-11.0)
[2019-03-17 05:44] LABS: ALBUMIN 2.7 G/DL (3.4-5.0); ANION GAP 9 (8-16); BLOOD UREA NITROGEN 47 MG/DL (7-18); BUN/CREATININE RATIO 28.3 (6.6-38.0); CALCIUM 8.5 MG/DL (8.5-10.1); CHLORIDE 100 MMOL/L (99-107); CREATININE 1.66 MG/DL (0.40-0.90); GLUCOSE 224 MG/DL (70-104); MAGNESIUM 2.7 MG/DL (1.5-2.4); PHOSPHORUS 3.4 MG/DL (2.3-4.5); POTASSIUM 5.1 MMOL/L (3.5-5.1); SODIUM 136 MMOL/L (135-145); TOTAL CARBON DIOXIDE 26.7 MMOL/L (24-32); eGFR 31 ML/MIN
[2019-03-17 06:00] VITALS: BP 118/69
[2019-03-17 06:31] LABS: ANISOCYTOSIS 3+; PLATELET ESTIMATE NORMAL; TEAR DROP CELLS 1+
[2019-03-17 06:32] LABS: ELLIPTOCYTES 1+; HYPOCHROMASIA 1+; POLYCHROMASIA 1+
--- NOTE | 2019-03-17 06:38 | NUR ---
Problems reprioritized. Patient report given, questions answered & plan of care reviewed with Serena LINTON.
[2019-03-17] MEDS: K and/or MAG REPLACEMENT MC SCH (08:00)
[2019-03-17] MEDS: levoFLOXACIN-Levaquin 250mg/D5 50 ML IV SCH (09:29)
[2019-03-17] MEDS: methylPREDNISolone sod succ 125mg/2ml vial IV SCH (09:30)
[2019-03-17] MEDS: acetylcysteine 200 MG/ml 4ml vial PO SCH (09:31)
[2019-03-17] MEDS: aspirin 81mg tab.chew PO SCH (09:32)
[2019-03-17] MEDS: isosorbide mononitrate 30mg tab.SR.24H PO SCH (09:32)
[2019-03-17] MEDS: montelukast 10mg tablet PO SCH (09:32)
[2019-03-17] MEDS: apixaban 5mg tablet PO SCH (09:32)
[2019-03-17] MEDS: levoTHYROXINE 100mcg tablet PO SCH (09:33)
[2019-03-17] MEDS: lactobacillus rhamnosus 10,000 MMU CELLS/CAPSULE PO SCH (09:33)
[2019-03-17] MEDS: carVEDilol 12.5mg tablet PO SCH (09:33)
--- NOTE | 2019-03-17 16:01 | NUR ---
Problems reprioritized. Patient report given, questions answered & plan of care reviewed with Luana licensed nurse from [facility].
--- NOTE | 2019-03-17 16:02 | NUR ---
Patient in room PCU 3012. I have received report from Maine LINTON and had the opportunity to ask questions and assume patient care. Addendum: 03/17/19 at 1645 by Angela Upton RN Care initiated at 0600
--- NOTE | 2019-03-17 16:30 | NUR ---
Stable for transfer per MD orders. [facility] and given to Luana, licensed Nurse. All questions/inquiries answered to satisfaction. Tele monitoring and PIV discontinued; cannula intact. All personall belongings sent with patient. Discharge packet given to [facility] personnel. Transferred to [facility] via wheelchair accompanied by family.
== END 2019-03-17 16:35 | DRG 190 ==
LOC: ER 12:16 → PCU 3S 16:11
PROVIDERS: ADMIT Family Medicine; ATTEND Family Medicine
DX: J44.1 Chronic obstructive pulmonary disease with (acute) exacerbation (principal); I21.4 Non-ST elevation (NSTEMI) myocardial infarction; J45.51 Severe persistent asthma with (acute) exacerbation; I50.32 Chronic diastolic (congestive) heart failure; I13.0 Hypertensive heart and chronic kidney disease with heart failure and stage 1 through stage 4 chronic kidney disease, or unspecified chronic kidney disease; I25.810 Atherosclerosis of coronary artery bypass graft(s) without angina pectoris; J20.9 Acute bronchitis, unspecified; J44.0 Chronic obstructive pulmonary disease with (acute) lower respiratory infection; E87.6 Hypokalemia; E03.9 Hypothyroidism, unspecified; E66.9 Obesity, unspecified; E78.00 Pure hypercholesterolemia, unspecified; E78.5 Hyperlipidemia, unspecified; I48.0 Paroxysmal atrial fibrillation; I73.9 Peripheral vascular disease, unspecified; N18.9 Chronic kidney disease, unspecified; Z79.01 Long term (current) use of anticoagulants; Z85.3 Personal history of malignant neoplasm of breast; Z86.711 Personal history of pulmonary embolism; I25.2 Old myocardial infarction; Z86.718 Personal history of other venous thrombosis and embolism; Z86.73 Personal history of transient ischemic attack (TIA), and cerebral infarction without residual deficits; Z87.891 Personal history of nicotine dependence; Z95.0 Presence of cardiac pacemaker; Z99.81 Dependence on supplemental oxygen; Z88.0 Allergy status to penicillin; Z88.7 Allergy status to serum and vaccine; Z88.8 Allergy status to other drugs, medicaments and biological substances; Z68.25 Body mass index [BMI] 25.0-25.9, adult; Z82.3 Family history of stroke; Z82.49 Family history of ischemic heart disease and other diseases of the circulatory system
CPT/HCPCS: 36415; 71045; 76937; 80048; 80053; 82948; 83605; 83735; 83880; 84100; 84145; 84484; 85025; 85730; 87040; 87081; 93005; 94640; 94760; 96365; 96366; 96375; 97110; 97116; 97162; 97530; 99285; G0378; J0696; J1644; J1650; J1956; J2270; J2930; J3480

== ENCOUNTER 2019-03-25 17:36 | Inpatient (IN) | payer MEDICARE, OTHER ==
[~2019-03-25] VITALS: Ht 165.1 cm; Wt 76.4 kg
[~2019-03-25 17:36] MED LIST changes: -BECL7.3A INH; -CARV-50 PO; +CARV25TA2 PO; -PRED5TAB49 PO
[2019-03-25] MEDS ORDERED: diltiazem-D5W 125mg/125ml 125 ML IV ONE (18:36)
--- NOTE | 2019-03-25 18:39 | NUR ---
DR BAUTISTA MADE AWARE OF PATIENT'S STATUS, HR RANGE 120'S-150'S, PATIENT BP DROPPED TO 71/48. ORDER FOR FLUIDS AND CARDIZEM TO BE ORDERED BY MD (SEE EMAR).
[2019-03-25] MEDS ORDERED: diltiazem 5mg/ml 5ml inj. IV ONE ×2 (18:40→19:20)
[2019-03-25] MEDS ORDERED: diltiazem-NS 100mg/100ml 100 ML IV SCH (18:50)
--- NOTE | 2019-03-25 18:50 | NUR ---
DR BAUTISTA IN TO ASSESS PATIENT, STATED OK TO GIVE CARDIZEM PER MD ORDER (SEE EMAR), BP NOW 143/76, HR 141, IRREGULAR.
[2019-03-25 19:06] LABS: BASOPHILS # (AUTO) 0.2 X10'3 (0-0.2); BASOPHILS % (AUTO) 0.7 % (0-1); EOSINOPHILS % (AUTO) 0 % (0-6); HEMATOCRIT 22.2 % (35.0-45.0); HEMOGLOBIN 7.1 g/dl (12.0-16.0); LYMPHOCYTES # (AUTO) 0.7 X10'3 (1.1-4.8); LYMPHOCYTES % (AUTO) 2.4 % (21-51); MEAN CORPUSCULAR HEMOGLOBIN 27.1 PG (27.0-31.0); MEAN CORPUSCULAR VOLUME 84.9 FL (78-98); MEAN PLATELET VOLUME 8.4 FL (7.4-10.4); MONOCYTES # (AUTO) 1.3 X10'3 (0-0.9); MONOCYTES % (AUTO) 4.6 % (2-12); NEUTROPHILS # (AUTO) 26.7 X10'3 (1.8-7.7); NEUTROPHILS % (AUTO) 92.3 % (42-75); PLATELET COUNT 230 X10'3 (140-440); RED BLOOD COUNT 2.62 X10'6 (4.20-5.60); RED CELL DISTRIBUTION WIDTH 20.7 % (11.5-14.5)
[2019-03-25 19:11] LABS: PARTIAL THROMBOPLASTIN TIME 25 SECONDS (22-32)
[2019-03-25 19:18] LABS: ALANINE AMINOTRANSFERASE 29 U/L (12-78); ALBUMIN 2.6 G/DL (3.4-5.0); ALKALINE PHOSPHATASE 69 IU/L (46-116); ANION GAP 8 (8-16); ASPARTATE AMINO TRANSFERASE 18 U/L (10-37); BILIRUBIN,TOTAL 0.6 MG/DL (0.1-1.0); BLOOD UREA NITROGEN 49 MG/DL (7-18); BUN/CREATININE RATIO 25.8 (6.6-38.0); CALCIUM 8.4 MG/DL (8.5-10.1); CHLORIDE 101 MMOL/L (99-107); GLUCOSE 335 MG/DL (70-104); POTASSIUM 4.1 MMOL/L (3.5-5.1); SODIUM 137 MMOL/L (135-145); TOTAL CARBON DIOXIDE 27.7 MMOL/L (24-32); TOTAL PROTEIN 5.2 G/DL (6.4-8.2); eGFR 26 ML/MIN
[2019-03-25 19:20] LABS: WHITE BLOOD COUNT 28.9 X10'3 (4.5-11.0)
--- NOTE | 2019-03-25 19:21 | NUR ---
DR BAUTISTA MADE AWARE OF HR 113'S S/P CARDIZEM PUSH AND DRIP (SEE EMAR). MD TO ENTER ORDER FOR CARDIZEM (SEE EMAR).
[2019-03-25 19:24] LABS: MAGNESIUM 3.1 MG/DL (1.5-2.4)
--- NOTE | 2019-03-25 20:08 | NUR ---
SPOKE WITH DR BAUTISTA TO GET OCCULT BLOOD STOOL SIGNED OFF. ALSO UPDATED DR BAUTISTA ON PTS CURRENT VITALS, ASKED ABOUT POSSIBLE PRESSORS FOR LOW BP AND ABX FOR HIGH WBC. DR BAUTISTA ADVISED HE WOULD ORDER ABX AND LOOK INTO PRESSORS.
--- NOTE | 2019-03-25 20:20 | NUR ---
STILL NO ORDERS FOR PRESSORS OR ABX FOR PT, DR BAUTISTA ENTERED PTS ROOM TO CHECK ON PTS CURRENT STATUS, INFORMED DR BAUTISTA THAT PRESSORS AND ABX WAS ORDER FOR BED 5 AND ASKED IF THAT WAS A POSSIBLE MISTAKE AND THAT HE MEANT TO ORDER FOR BED 4. INFORMED BY DR BAUTISTA THAT HE PUT NO ORDERS FOR PRESSORS OR ABX IN ON ANY PT. HE WANTS PT TO RECEIVED UNIT OF RBC ONLY.
[2019-03-25] MEDS ORDERED: cefepime 2gm inj IV STA (20:29)
[2019-03-25] MEDS ORDERED: cefepime 2g/NS 100ml ADVANTAGE 100 ML IV ONE (20:35)
--- NOTE | 2019-03-25 21:08 | NUR ---
DR BAUTISTA MADE AWARE OF HR CONTINUED 113-132, BP 105/51, IRREGULAR. PER MD; INFUSE BLOOD PRIOR TO ANY OTHER MEDICATIONS TO BE GIVEN. PER TAMI IN LAB, WILL CALL WHEN 1 UNIT OF PRBC IS READY.
[2019-03-25] MEDS ORDERED: MULT1CAP44 PO (21:21)
[2019-03-25] MEDS ORDERED: OXYB15TA PO (21:21)
[2019-03-25] MEDS ORDERED: PRAV80TA3 PO (21:21)
[2019-03-25] MEDS ORDERED: LACTC PO (21:21)
[2019-03-25] MEDS ORDERED: ISOS60TA4 PO (21:21)
[2019-03-25] MEDS ORDERED: PRE5T CORPAK (21:21)
[2019-03-25] MEDS ORDERED: RIVA20TA PO (21:21)
[2019-03-25] MEDS ORDERED: LEVO250T58 PO (21:21)
[2019-03-25] MEDS ORDERED: FURO-149 PO (21:21)
[2019-03-25] MEDS ORDERED: pantoprazole IV 80 MG in normal saline 100ml IV soln 100 ML IV ONE (21:25)
[2019-03-25 21:43] LABS: NUCLEATED RED BLOOD CELLS 7 /100WBC (0-0); TOTAL CELLS COUNTED 100
[2019-03-25 21:45] LABS: ANISOCYTOSIS 3+; PLATELET ESTIMATE NORMAL
[2019-03-25 21:46] LABS: ELLIPTOCYTES 1+; POLYCHROMASIA FEW; TEAR DROP CELLS 1+
[2019-03-25 21:47] LABS: TARGET CELLS FEW
[2019-03-25 21:53] LABS: LARGE PLATELETS FEW
[2019-03-25] MEDS ORDERED: ondansetron/PF 4mg/2ml inj IV PRN (21:55)
[2019-03-25] MEDS ORDERED: acetaminophen 325mg tablet PO PRN ×2 (21:55)
[2019-03-25] MEDS ORDERED: morphine 4 MG/ML inj SYRINge IV PRN (21:55)
[2019-03-25] MEDS ORDERED: potassium CL 10mEq/100ml bag 100 ML IV PRN ×2 (21:55)
[2019-03-25] MEDS ORDERED: morphine 2 MG/ML inj. syringe IV PRN (21:55)
[2019-03-25 22:13] LABS: CLARITY,URINE CLEAR (Clear); COLOR,URINE YELLOW (Yellow); GLUCOSE, URINE NEGATIVE (Neg); KETONES,URINE NEGATIVE (Neg); LEUKOCYTE ESTERASE ,URINE NEGATIVE (Neg); NITRITES, URINE NEGATIVE (Neg); OCCULT BLOOD,URINE NEGATIVE (Neg); PROTEIN,URINE NEGATIVE (Neg); UROBILINOGEN,URINE 0.2 E.U/dL (0.2-1.0)
[2019-03-25 22:14] LABS: UA COLLECTION TYPE STRAIGHT CATH
[2019-03-25] MEDS: pantoprazole 40MG/NS 100ML BAG 100 ML IV SCH (22:14)
--- NOTE | 2019-03-25 22:18 | NUR ---
CHASITY DIAZ AT BEDSIDE TO ASSESS PATIENT AT THIS TIME, MANJINDER BONILLA AT THE BEDSIDE.
--- NOTE | 2019-03-25 22:29 | NUR ---
SPOKE WITH CHASITY DIAZ AT BEDSIDE REGARDING CARDIZEM AND PROTONIX DRIP COMPATITBILITY, PER HUMAN RESOURCES RECRUITER OKAY TO STOP PROTONIX DRIP ONCE BLOOD TRANSFUSION BEGINS. NO PRESSORS NEEDED AT THIS TIME PER CHASITY DIAZ.
[2019-03-26] VITALS (28 sets, daily range): BP systolic 86–132; BP diastolic 35–66
[2019-03-26] MEDS: normal saline 1000ml 1,000 ML IV SCH ×2 (01:10→18:02)
[2019-03-26] MEDS ORDERED: albuterol 2.5 MG/3 ML nebule NEB PRN (04:45)
[2019-03-26] MEDS ORDERED: amiodarone 150mg/dext, iso-os 100 ML IV ONE (05:20)
[2019-03-26] MEDS ORDERED: amiodarone/D5 360MG/200ML BAG 200 ML IV SCH (05:20)
[2019-03-26] MEDS: pantoprazole 40MG/NS 100ML BAG 100 ML IV SCH ×4 (05:58→21:57)
[2019-03-26 06:25] LABS: BASOPHILS % (AUTO) 0.2 % (0-1); EOSINOPHILS % (AUTO) 0 % (0-6); HEMATOCRIT 27.2 % (35.0-45.0); LYMPHOCYTES # (AUTO) 1.3 X10'3 (1.1-4.8); LYMPHOCYTES % (AUTO) 5.5 % (21-51); MEAN CORPUSCULAR HEMOGLOBIN 27.9 PG (27.0-31.0); MEAN CORPUSCULAR VOLUME 84.8 FL (78-98); MEAN PLATELET VOLUME 8.3 FL (7.4-10.4); MONOCYTES # (AUTO) 1.2 X10'3 (0-0.9); MONOCYTES % (AUTO) 5.1 % (2-12); NEUTROPHILS # (AUTO) 21.1 X10'3 (1.8-7.7); NEUTROPHILS % (AUTO) 89.2 % (42-75); PLATELET COUNT 169 X10'3 (140-440); RED BLOOD COUNT 3.21 X10'6 (4.20-5.60); RED CELL DISTRIBUTION WIDTH 18.2 % (11.5-14.5); WHITE BLOOD COUNT 23.6 X10'3 (4.5-11.0)
[2019-03-26 06:27] LABS: ALANINE AMINOTRANSFERASE 24 U/L (12-78); ALBUMIN 2.6 G/DL (3.4-5.0); ALKALINE PHOSPHATASE 64 IU/L (46-116); ANION GAP 9 (8-16); ASPARTATE AMINO TRANSFERASE 30 U/L (10-37); BLOOD UREA NITROGEN 45 MG/DL (7-18); BUN/CREATININE RATIO 28.1 (6.6-38.0); CALCIUM 7.9 MG/DL (8.5-10.1); CHLORIDE 105 MMOL/L (99-107); GLUCOSE 213 MG/DL (70-104); POTASSIUM 3.6 MMOL/L (3.5-5.1); SODIUM 141 MMOL/L (135-145); TOTAL CARBON DIOXIDE 26.9 MMOL/L (24-32); TOTAL PROTEIN 5.2 G/DL (6.4-8.2); eGFR 32 ML/MIN
[2019-03-26 06:31] LABS: MAGNESIUM 2.7 MG/DL (1.5-2.4); PHOSPHORUS 4.2 MG/DL (2.3-4.5)
[2019-03-26] MEDS ORDERED: carVEDilol 12.5mg tablet PO SCH (08:00)
[2019-03-26] MEDS: isosorbide mononitrate 30mg tab.SR.24H PO SCH (08:00)
[2019-03-26] MEDS: K, MAG and/or Phos replacement - Verify level? MC SCH ×2 (08:00→10:28)
[2019-03-26] MEDS: lactobacillus rhamnosus 10,000 MMU CELLS/CAPSULE PO SCH ×2 (09:08→20:13)
[2019-03-26] MEDS: levoTHYROXINE 100mcg tablet PO SCH (09:09)
[2019-03-26] MEDS: cefepime 1GM in D5W 50mL 50 ML IV SCH ×2 (09:10→20:13)
[2019-03-26] MEDS: amiodarone 200mg tablet PO SCH ×2 (09:14→20:13)
[2019-03-26 09:29] LABS: ANISOCYTOSIS 2+; MICROCYTOSIS 1+; NUCLEATED RED BLOOD CELLS 3 /100WBC (0-0); PLATELET ESTIMATE NORMAL; TOTAL CELLS COUNTED 100
[2019-03-26 09:30] LABS: ELLIPTOCYTES FEW; LARGE PLATELETS FEW; POLYCHROMASIA 1+; TARGET CELLS FEW; TEAR DROP CELLS FEW
[2019-03-26 09:57] LABS: BASOPHILS # (AUTO) 0.1 X10'3 (0-0.2); BASOPHILS % (AUTO) 0.3 % (0-1); EOSINOPHILS % (AUTO) 0 % (0-6); HEMATOCRIT 25.3 % (35.0-45.0); HEMOGLOBIN 8.1 g/dl (12.0-16.0); LYMPHOCYTES # (AUTO) 1.1 X10'3 (1.1-4.8); LYMPHOCYTES % (AUTO) 5.3 % (21-51); MEAN CORPUSCULAR VOLUME 84.5 FL (78-98); MEAN PLATELET VOLUME 8.1 FL (7.4-10.4); MONOCYTES % (AUTO) 4.9 % (2-12); NEUTROPHILS # (AUTO) 18.3 X10'3 (1.8-7.7); NEUTROPHILS % (AUTO) 89.5 % (42-75); PLATELET COUNT 161 X10'3 (140-440); RED BLOOD COUNT 2.99 X10'6 (4.20-5.60); RED CELL DISTRIBUTION WIDTH 18.5 % (11.5-14.5); WHITE BLOOD COUNT 20.5 X10'3 (4.5-11.0)
[2019-03-26 10:13] LABS: TROPONIN I 8.65 NG/ML (0.0-0.05)
[2019-03-26] MEDS: carvedilol 6.25mg tablet PO SCH ×2 (11:28→20:15)
[2019-03-26 12:38] LABS: HEMOGLOBIN A1C 6.8 % (4.5-6.2)
[2019-03-26 12:56] LABS: PARTIAL THROMBOPLASTIN TIME 26 SECONDS (22-32)
[2019-03-26 16:44] LABS: HEMATOCRIT 24.3 % (35.0-45.0); HEMOGLOBIN 7.8 g/dl (12.0-16.0); MEAN CORPUSCULAR HEMOGLOBIN 27.1 PG (27.0-31.0); MEAN CORPUSCULAR HGB CONC 32.3 g/dL (33.0-36.5); MEAN CORPUSCULAR VOLUME 83.9 FL (78-98); MEAN PLATELET VOLUME 8.2 FL (7.4-10.4); PLATELET COUNT 153 X10'3 (140-440); RED BLOOD COUNT 2.89 X10'6 (4.20-5.60); RED CELL DISTRIBUTION WIDTH 18.7 % (11.5-14.5)
[2019-03-26 16:53] LABS: TROPONIN I 5.76 NG/ML (0.0-0.05)
[2019-03-26] MEDS: digoxin 125mcg (0.125mg) tablet PO SCH (17:10)
--- NOTE | 2019-03-26 19:58 | NUR ---
Updated Eric Thomas on patient's condition, he does not feel that h/h and trop labs need to be added unless there is a change in patient condition. H/H at 1600 was stable and trop is now trending down after peaking at 8.65. Will do morning labs and continue monitoring patient.
[2019-03-27] VITALS (34 sets, daily range): BP systolic 92–148; BP diastolic 37–67
[2019-03-27] MEDS: pantoprazole 40MG/NS 100ML BAG 100 ML IV SCH ×5 (03:39→19:30)
[2019-03-27 04:17] LABS: BASOPHILS % (AUTO) 0 % (0-1); EOSINOPHILS # (AUTO) 0.1 X10'3 (0-0.9); EOSINOPHILS % (AUTO) 0.4 % (0-6); LYMPHOCYTES # (AUTO) 1.4 X10'3 (1.1-4.8); LYMPHOCYTES % (AUTO) 10.1 % (21-51); MEAN CORPUSCULAR HEMOGLOBIN 27.5 PG (27.0-31.0); MEAN CORPUSCULAR HGB CONC 32.6 g/dL (33.0-36.5); MEAN CORPUSCULAR VOLUME 84.5 FL (78-98); MEAN PLATELET VOLUME 7.9 FL (7.4-10.4); MONOCYTES # (AUTO) 0.7 X10'3 (0-0.9); MONOCYTES % (AUTO) 5.3 % (2-12); NEUTROPHILS # (AUTO) 11.8 X10'3 (1.8-7.7); NEUTROPHILS % (AUTO) 84.2 % (42-75); PLATELET COUNT 121 X10'3 (140-440); RED BLOOD COUNT 2.53 X10'6 (4.20-5.60); RED CELL DISTRIBUTION WIDTH 18.6 % (11.5-14.5)
[2019-03-27 04:21] LABS: ALANINE AMINOTRANSFERASE 21 U/L (12-78); ALBUMIN/GLOBULIN RATIO 0.9 (1.1-1.5); ALKALINE PHOSPHATASE 50 IU/L (46-116); ANION GAP 8 (8-16); ASPARTATE AMINO TRANSFERASE 21 U/L (10-37); BILIRUBIN,TOTAL 0.5 MG/DL (0.1-1.0); BLOOD UREA NITROGEN 35 MG/DL (7-18); BUN/CREATININE RATIO 25.4 (6.6-38.0); CALCIUM 6.9 MG/DL (8.5-10.1); CHLORIDE 112 MMOL/L (99-107); CREATININE 1.38 MG/DL (0.40-0.90); GLUCOSE 102 MG/DL (70-104); MAGNESIUM 2.2 MG/DL (1.5-2.4); PHOSPHORUS 2.9 MG/DL (2.3-4.5); SODIUM 144 MMOL/L (135-145); TOTAL CARBON DIOXIDE 24.3 MMOL/L (24-32); TOTAL PROTEIN 4.2 G/DL (6.4-8.2); eGFR 38 ML/MIN
[2019-03-27 04:24] LABS: HEMATOCRIT 21.4 % (35.0-45.0)
[2019-03-27 04:26] LABS: POTASSIUM 2.8 MMOL/L (3.5-5.1)
[2019-03-27] MEDS: potassium Cl 20mEq/100mL bag 100 ML IV PRN ×4 (05:11→11:25)
--- NOTE | 2019-03-27 06:19 | NUR ---
Problems reprioritized. Patient report given, questions answered & plan of care reviewed with SHAILA Medina.
--- NOTE | 2019-03-27 06:44 | NUR ---
Patient in room CICU 2010. I have received report from Melanie Sherman and had the opportunity to ask questions and assume patient care. Patient laying in bed with eyes closed, on 2l nc sating 98%, 1 unit prbc and protonix infusing to IJ. Vital signs stable will continue to monitor
[2019-03-27 07:56] LABS: ANISOCYTOSIS 2+; MICROCYTOSIS 1+; PLATELET ESTIMATE DECREASED; POLYCHROMASIA 2+
[2019-03-27] MEDS: digoxin 125mcg (0.125mg) tablet PO SCH (07:57)
[2019-03-27] MEDS: amiodarone 200mg tablet PO SCH ×2 (07:57→19:30)
[2019-03-27] MEDS: levoTHYROXINE 100mcg tablet PO SCH (07:57)
[2019-03-27] MEDS: isosorbide mononitrate 30mg tab.SR.24H PO SCH (07:57)
[2019-03-27] MEDS: carvedilol 6.25mg tablet PO SCH ×2 (07:58→19:30)
[2019-03-27] MEDS: lactobacillus rhamnosus 10,000 MMU CELLS/CAPSULE PO SCH ×2 (07:58→19:30)
[2019-03-27] MEDS: cefepime 1GM/NS ADD-VANTAGE 100 ML IV SCH ×2 (07:59→19:31)
[2019-03-27] MEDS: normal saline 1000ml 1,000 ML IV SCH (08:00)
[2019-03-27] MEDS: K and/or MAG REPLACEMENT MC SCH (08:00)
[2019-03-27 10:41] LABS: % IRON SATURATION 17 % (11-46); IRON 44 UG/DL (49-151); TOTAL IRON BINDING CAPACITY 253 UG/DL (259-388)
--- NOTE | 2019-03-27 11:00 | NUR ---
received orthostatic VS from PT. PT got pt. out of bed and into a chair. Addendum: 03/27/19 at 1103 by Jessie Hatch RN supine 113/44, sitting 127/61, standing 105/47
[2019-03-27 12:06] LABS: TROPONIN I 2.56 NG/ML (0.0-0.05)
[2019-03-27] MEDS ORDERED: fentaNYL/PF 50MCG/1 ML 2ML syringe ONE (12:40)
[2019-03-27] MEDS ORDERED: epiNEPHrine 0.1mg/ml 10ml syringe ONE (12:41)
[2019-03-27] MEDS ORDERED: MIDAZolam 5mg/5ml vial ONE (12:41)
[2019-03-27] MEDS ORDERED: LIDOcaine Viscous 15ml cup ONE (12:41)
--- NOTE | 2019-03-27 15:16 | NUR ---
pt. tolerated upper endoscopy well. vital signs are stable and pt. is appropriately answering questions at this time. pt. is laying on her L side to prevent aspiration.
[2019-03-27 15:19] LABS: RETICULOCYTE % (AUTO) 5.6 % (0.5-2.3)
[2019-03-27 15:20] LABS: ABSOLUTE RETICS # 174.2 X10'3 uL (32.5-133.0)
[2019-03-27 16:34] LABS: HEMATOCRIT 25.4 % (35.0-45.0); HEMOGLOBIN 8.3 g/dl (12.0-16.0); MEAN CORPUSCULAR HEMOGLOBIN 27.7 PG (27.0-31.0); MEAN CORPUSCULAR HGB CONC 32.6 g/dL (33.0-36.5); MEAN CORPUSCULAR VOLUME 84.8 FL (78-98); MEAN PLATELET VOLUME 7.7 FL (7.4-10.4); PLATELET COUNT 115 X10'3 (140-440); RED BLOOD COUNT 2.99 X10'6 (4.20-5.60); WHITE BLOOD COUNT 15.2 X10'3 (4.5-11.0)
--- NOTE | 2019-03-27 18:18 | NUR ---
Problems reprioritized. Patient report given, questions answered & plan of care reviewed with Melanie Sherman.
--- NOTE | 2019-03-27 18:35 | NUR ---
Patient in room CICU 2010. I have received report from SHAILA Medina and had the opportunity to ask questions and assume patient care.
[2019-03-28] VITALS (23 sets, daily range): BP systolic 94–153; BP diastolic 35–59
[2019-03-28] MEDS: pantoprazole 40MG/NS 100ML BAG 100 ML IV SCH ×2 (01:00→05:52)
[2019-03-28 02:59] LABS: BASOPHILS % (AUTO) 0.2 % (0-1); EOSINOPHILS # (AUTO) 0.1 X10'3 (0-0.9); EOSINOPHILS % (AUTO) 0.9 % (0-6); HEMATOCRIT 23.1 % (35.0-45.0); HEMOGLOBIN 7.5 g/dl (12.0-16.0); LYMPHOCYTES # (AUTO) 1.4 X10'3 (1.1-4.8); LYMPHOCYTES % (AUTO) 12.8 % (21-51); MEAN CORPUSCULAR HGB CONC 32.4 g/dL (33.0-36.5); MEAN CORPUSCULAR VOLUME 86.4 FL (78-98); MEAN PLATELET VOLUME 7.8 FL (7.4-10.4); MONOCYTES # (AUTO) 0.9 X10'3 (0-0.9); NEUTROPHILS # (AUTO) 8.8 X10'3 (1.8-7.7); NEUTROPHILS % (AUTO) 78.1 % (42-75); PLATELET COUNT 94 X10'3 (140-440); RED BLOOD COUNT 2.67 X10'6 (4.20-5.60); RED CELL DISTRIBUTION WIDTH 17.7 % (11.5-14.5); WHITE BLOOD COUNT 11.2 X10'3 (4.5-11.0)
[2019-03-28 03:20] LABS: ALANINE AMINOTRANSFERASE 21 U/L (12-78); ALBUMIN 1.8 G/DL (3.4-5.0); ALBUMIN/GLOBULIN RATIO 0.8 (1.1-1.5); ALKALINE PHOSPHATASE 51 IU/L (46-116); ANION GAP 10 (8-16); ASPARTATE AMINO TRANSFERASE 17 U/L (10-37); BILIRUBIN,TOTAL 0.6 MG/DL (0.1-1.0); BLOOD UREA NITROGEN 24 MG/DL (7-18); BUN/CREATININE RATIO 18.6 (6.6-38.0); CALCIUM 6.8 MG/DL (8.5-10.1); CHLORIDE 114 MMOL/L (99-107); CREATININE 1.29 MG/DL (0.40-0.90); GLUCOSE 76 MG/DL (70-104); MAGNESIUM 2.1 MG/DL (1.5-2.4); PHOSPHORUS 2.2 MG/DL (2.3-4.5); POTASSIUM 3.9 MMOL/L (3.5-5.1); SODIUM 144 MMOL/L (135-145); TOTAL CARBON DIOXIDE 20.5 MMOL/L (24-32); eGFR 41 ML/MIN
[2019-03-28 04:02] LABS: ANISOCYTOSIS 1+; NUCLEATED RED BLOOD CELLS 1 /100WBC (0-0); PLATELET ESTIMATE DECREASED; POLYCHROMASIA FEW; TOTAL CELLS COUNTED 100
[2019-03-28 04:03] LABS: TEAR DROP CELLS 1+
--- NOTE | 2019-03-28 06:16 | NUR ---
Problems reprioritized. Patient report given, questions answered & plan of care reviewed with SHAILA Holland.
[2019-03-28] MEDS: K and/or MAG REPLACEMENT MC SCH (08:00)
[2019-03-28] MEDS: lactobacillus rhamnosus 10,000 MMU CELLS/CAPSULE PO SCH ×2 (08:30→21:05)
[2019-03-28] MEDS: cefepime 1GM/NS ADD-VANTAGE 100 ML IV SCH ×2 (08:30→21:05)
[2019-03-28] MEDS: carvedilol 6.25mg tablet PO SCH ×2 (08:31→21:05)
[2019-03-28] MEDS: levoTHYROXINE 100mcg tablet PO SCH (08:31)
[2019-03-28] MEDS: isosorbide mononitrate 30mg tab.SR.24H PO SCH (08:31)
[2019-03-28] MEDS: amiodarone 200mg tablet PO SCH ×2 (08:31→21:05)
[2019-03-28] MEDS: digoxin 125mcg (0.125mg) tablet PO SCH (08:31)
[2019-03-28] MEDS: normal saline 1000ml 1,000 ML IV SCH (09:52)
--- NOTE | 2019-03-28 18:35 | NUR ---
Patient in room CICU 2010. I have received report from SHAILA Holland and had the opportunity to ask questions and assume patient care.
[2019-03-28] MEDS: sodium ferric gluc complex inj 125 MG in normal saline 100ml IV soln 100 ML IV SCH (18:40)
[2019-03-29] VITALS (24 sets, daily range): BP systolic 107–147; BP diastolic 38–52
[2019-03-29] MEDS: normal saline 1000ml 1,000 ML IV SCH (03:56)
[2019-03-29 04:39] LABS: BASOPHILS % (AUTO) 0.3 % (0-1); EOSINOPHILS # (AUTO) 0.1 X10'3 (0-0.9); EOSINOPHILS % (AUTO) 1.4 % (0-6); HEMATOCRIT 22.5 % (35.0-45.0); HEMOGLOBIN 7.4 g/dl (12.0-16.0); LYMPHOCYTES # (AUTO) 0.8 X10'3 (1.1-4.8); LYMPHOCYTES % (AUTO) 9.4 % (21-51); MEAN CORPUSCULAR HEMOGLOBIN 28.5 PG (27.0-31.0); MEAN CORPUSCULAR HGB CONC 32.8 g/dL (33.0-36.5); MONOCYTES # (AUTO) 0.9 X10'3 (0-0.9); MONOCYTES % (AUTO) 10.5 % (2-12); NEUTROPHILS # (AUTO) 6.8 X10'3 (1.8-7.7); NEUTROPHILS % (AUTO) 78.4 % (42-75); PLATELET COUNT 88 X10'3 (140-440); RED BLOOD COUNT 2.58 X10'6 (4.20-5.60); RED CELL DISTRIBUTION WIDTH 17.8 % (11.5-14.5); WHITE BLOOD COUNT 8.7 X10'3 (4.5-11.0)
[2019-03-29 05:04] LABS: ALANINE AMINOTRANSFERASE 27 U/L (12-78); ALBUMIN 1.7 G/DL (3.4-5.0); ALBUMIN/GLOBULIN RATIO 0.8 (1.1-1.5); ALKALINE PHOSPHATASE 50 IU/L (46-116); ANION GAP 9 (8-16); ASPARTATE AMINO TRANSFERASE 14 U/L (10-37); BILIRUBIN,TOTAL 0.5 MG/DL (0.1-1.0); BLOOD UREA NITROGEN 16 MG/DL (7-18); BUN/CREATININE RATIO 13.7 (6.6-38.0); CALCIUM 6.9 MG/DL (8.5-10.1); CHLORIDE 116 MMOL/L (99-107); CREATININE 1.17 MG/DL (0.40-0.90); GLUCOSE 78 MG/DL (70-104); POTASSIUM 3.5 MMOL/L (3.5-5.1); SODIUM 145 MMOL/L (135-145); TOTAL PROTEIN 3.9 G/DL (6.4-8.2); eGFR 46 ML/MIN
[2019-03-29 05:15] LABS: TROPONIN I 1.04 NG/ML (0.0-0.05)
[2019-03-29 05:27] LABS: ANISOCYTOSIS 1+; PLATELET ESTIMATE DECREASED; POLYCHROMASIA 1+; TEAR DROP CELLS 1+
--- NOTE | 2019-03-29 06:32 | NUR ---
Problems reprioritized. Patient report given, questions answered & plan of care reviewed with SHAILA Gallagher.
--- NOTE | 2019-03-29 06:33 | NUR ---
Patient in room CICU 2010. I have received report from Christy LINTON and had the opportunity to ask questions and assume patient care.
[2019-03-29] MEDS: pantoprazole 40 MG vial IV SCH (07:29)
[2019-03-29] MEDS: isosorbide mononitrate 30mg tab.SR.24H PO SCH (07:30)
[2019-03-29] MEDS: carvedilol 6.25mg tablet PO SCH ×2 (07:30→19:56)
[2019-03-29] MEDS: lactobacillus rhamnosus 10,000 MMU CELLS/CAPSULE PO SCH ×2 (07:30→19:56)
[2019-03-29] MEDS: amiodarone 200mg tablet PO SCH ×2 (07:30→19:56)
[2019-03-29] MEDS: levoTHYROXINE 100mcg tablet PO SCH (07:30)
[2019-03-29] MEDS: digoxin 125mcg (0.125mg) tablet PO SCH (07:30)
[2019-03-29] MEDS: K and/or MAG REPLACEMENT MC SCH (07:31)
[2019-03-29] MEDS: cefepime 1GM/NS ADD-VANTAGE 100 ML IV SCH ×2 (07:32→19:56)
[2019-03-29] MEDS: sodium ferric gluc complex inj 125 MG in normal saline 100ml IV soln 100 ML IV SCH (07:32)
[2019-03-29] MEDS: atorvastatin 20mg tablet PO SCH (09:28)
[2019-03-29] MEDS: docusate sod 100mg capsule PO SCH ×2 (12:02→19:56)
--- NOTE | 2019-03-29 12:40 | NUR ---
Initial: Pt admit w/ afib RVR, NSTEMI, and GIB s/p duodenal clip and GI scope. No bleeding at this time per RN. PO 50% avg clear liquids advanced to regular diet today. Will continue to monitor. Rec: 1. continue regular diet 2. monitor for ONS needs 3. wt per rx Addendum: 03/29/19 at [address] Amended: Links added.
--- NOTE | 2019-03-29 18:20 | NUR ---
Problems reprioritized. Patient report given, questions answered & plan of care reviewed with María LINTON.
--- NOTE | 2019-03-29 18:21 | NUR ---
Patient in room CICU 2010. I have received report from SHAILA Orellana and had the opportunity to ask questions and assume patient care. Patient is A&O x3, SU and is appropriate. At this time I helped he onto the bed jimenez and will continue to monitor.
[2019-03-30] VITALS (17 sets, daily range): BP systolic 105–142; BP diastolic 38–52
[2019-03-30] MEDS: normal saline 1000ml 1,000 ML IV SCH (01:52)
[2019-03-30 03:11] LABS: BASOPHILS % (AUTO) 0.2 % (0-1); EOSINOPHILS # (AUTO) 0.1 X10'3 (0-0.9); EOSINOPHILS % (AUTO) 1.6 % (0-6); HEMATOCRIT 23.1 % (35.0-45.0); HEMOGLOBIN 7.5 g/dl (12.0-16.0); LYMPHOCYTES % (AUTO) 11.6 % (21-51); MEAN CORPUSCULAR HEMOGLOBIN 28.3 PG (27.0-31.0); MEAN CORPUSCULAR HGB CONC 32.7 g/dL (33.0-36.5); MEAN CORPUSCULAR VOLUME 86.6 FL (78-98); MEAN PLATELET VOLUME 8.1 FL (7.4-10.4); MONOCYTES # (AUTO) 1.1 X10'3 (0-0.9); MONOCYTES % (AUTO) 13.1 % (2-12); NEUTROPHILS # (AUTO) 6.3 X10'3 (1.8-7.7); NEUTROPHILS % (AUTO) 73.5 % (42-75); PLATELET COUNT 87 X10'3 (140-440); RED BLOOD COUNT 2.66 X10'6 (4.20-5.60); RED CELL DISTRIBUTION WIDTH 19.2 % (11.5-14.5); WHITE BLOOD COUNT 8.6 X10'3 (4.5-11.0)
[2019-03-30 03:35] LABS: ALANINE AMINOTRANSFERASE 33 U/L (12-78); ALBUMIN 1.7 G/DL (3.4-5.0); ALBUMIN/GLOBULIN RATIO 0.7 (1.1-1.5); ALKALINE PHOSPHATASE 55 IU/L (46-116); ANION GAP 7 (8-16); ASPARTATE AMINO TRANSFERASE 14 U/L (10-37); BILIRUBIN,TOTAL 0.5 MG/DL (0.1-1.0); BLOOD UREA NITROGEN 11 MG/DL (7-18); BUN/CREATININE RATIO 9.2 (6.6-38.0); CALCIUM 7.4 MG/DL (8.5-10.1); CHLORIDE 117 MMOL/L (99-107); CREATININE 1.19 MG/DL (0.40-0.90); GLUCOSE 84 MG/DL (70-104); MAGNESIUM 2.1 MG/DL (1.5-2.4); PHOSPHORUS 1.9 MG/DL (2.3-4.5); POTASSIUM 3.3 MMOL/L (3.5-5.1); SODIUM 145 MMOL/L (135-145); TOTAL CARBON DIOXIDE 20.9 MMOL/L (24-32); TOTAL PROTEIN 4.1 G/DL (6.4-8.2); eGFR 45 ML/MIN
[2019-03-30 03:44] LABS: PLATELET ESTIMATE DECREASED
[2019-03-30 03:45] LABS: ANISOCYTOSIS 2+
[2019-03-30] MEDS ORDERED: potassium Cl 20 mEq SR tablet PO PRN ×2 (07:15)
[2019-03-30] MEDS: docusate sod 100mg capsule PO SCH (07:39)
[2019-03-30] MEDS: lactobacillus rhamnosus 10,000 MMU CELLS/CAPSULE PO SCH (07:39)
[2019-03-30] MEDS: atorvastatin 20mg tablet PO SCH (07:39)
[2019-03-30] MEDS: digoxin 125mcg (0.125mg) tablet PO SCH (07:40)
[2019-03-30] MEDS: isosorbide mononitrate 30mg tab.SR.24H PO SCH (07:40)
[2019-03-30] MEDS: pantoprazole 40 MG vial IV SCH (07:41)
[2019-03-30] MEDS: levoTHYROXINE 100mcg tablet PO SCH (07:41)
[2019-03-30] MEDS: carvedilol 6.25mg tablet PO SCH (07:41)
[2019-03-30] MEDS: amiodarone 200mg tablet PO SCH (07:41)
[2019-03-30] MEDS: cefepime 1GM/NS ADD-VANTAGE 100 ML IV SCH (07:42)
[2019-03-30] MEDS: sodium ferric gluc complex inj 125 MG in normal saline 100ml IV soln 100 ML IV SCH (07:42)
[2019-03-30] MEDS ORDERED: clopidogrel 75mg tablet PO SCH (08:00)
[2019-03-30] MEDS ORDERED: bisacodyl 10mg suppository rectal RC PRN (10:45)
[2019-03-30] MEDS ORDERED: AMIO200T61 PO (12:05)
[2019-03-30] MEDS ORDERED: CLOP75TA35 PO (12:05)
[2019-03-30] MEDS ORDERED: BISA10SU11 RC (12:05)
[2019-03-30] MEDS ORDERED: CEFE1FRO IV (12:05)
[2019-03-30] MEDS ORDERED: PANT40TA4 PO (12:05)
[2019-03-30] MEDS ORDERED: DIGO125T5 PO (12:05)
[2019-03-30] MEDS ORDERED: COL100C PO (12:05)
--- NOTE | 2019-03-30 13:35 | NUR ---
PICC RN placed 20g IV into left forearm; Central line d/c'd per protocol, pt tolerated well. Pt to be transferred to [facility]
--- NOTE | 2019-03-30 16:40 | NUR ---
Patient requesting to D/C chen catheter before transfer; chen removed per hospital policy; tolerated well
--- NOTE | 2019-03-30 16:41 | NUR ---
James Catheter D/C'd, patient tolerated procedure well.
--- NOTE | 2019-03-30 17:01 | NUR ---
Discharge/transfer education given to patient. [facility] came to transfer patient; all belongings sent ([place] shirt, socks, cell phone.) Report given to Jocelyn LINTON at [facility].
[2019-03-30] MEDS ORDERED: pantoprazole 40mg Tablet.DR PO SCH (20:00)
[2019-04-04 11:22] LABS: OCCULT BLOOD STOOL POSITIVE (Neg)
== END 2019-03-30 17:00 | DRG 377 ==
LOC: ER 17:36 → CICU 2S 23:23
PROVIDERS: ADMIT Internal Medicine Critical Care Medicine; ATTEND Internal Medicine Critical Care Medicine
PROC: 30233N1 Transfusion of Nonautologous Red Blood Cells into Peripheral Vein, Percutaneous Approach (ICD-10-PCS; 2019-03-26)
PROC: 02HV33Z Insertion of Infusion Device into Superior Vena Cava, Percutaneous Approach (ICD-10-PCS; 2019-03-26)
PROC: B548ZZA Ultrasonography of Superior Vena Cava, Guidance (ICD-10-PCS; 2019-03-26)
PROC: 0W3P8ZZ Control Bleeding in Gastrointestinal Tract, Via Natural or Artificial Opening Endoscopic (ICD-10-PCS; principal; 2019-03-27)
PROC: 30233N1 Transfusion of Nonautologous Red Blood Cells into Peripheral Vein, Percutaneous Approach (ICD-10-PCS; 2019-03-27)
DX: K31.811 Angiodysplasia of stomach and duodenum with bleeding (principal); I21.A1 Myocardial infarction type 2; I13.0 Hypertensive heart and chronic kidney disease with heart failure and stage 1 through stage 4 chronic kidney disease, or unspecified chronic kidney disease; I50.32 Chronic diastolic (congestive) heart failure; D58.9 Hereditary hemolytic anemia, unspecified; K92.1 Melena; K20.9 Esophagitis, unspecified; N18.9 Chronic kidney disease, unspecified; R19.7 Diarrhea, unspecified; J44.9 Chronic obstructive pulmonary disease, unspecified; E66.9 Obesity, unspecified; I95.9 Hypotension, unspecified; I48.0 Paroxysmal atrial fibrillation; J98.6 Disorders of diaphragm; E78.5 Hyperlipidemia, unspecified; E03.9 Hypothyroidism, unspecified; E78.00 Pure hypercholesterolemia, unspecified; I73.9 Peripheral vascular disease, unspecified; K29.70 Gastritis, unspecified, without bleeding; I25.10 Atherosclerotic heart disease of native coronary artery without angina pectoris; I49.5 Sick sinus syndrome; I25.2 Old myocardial infarction; Z82.3 Family history of stroke; Z79.02 Long term (current) use of antithrombotics/antiplatelets; Z79.890 Hormone replacement therapy; Z85.3 Personal history of malignant neoplasm of breast; Z86.711 Personal history of pulmonary embolism; Z86.73 Personal history of transient ischemic attack (TIA), and cerebral infarction without residual deficits; Z87.891 Personal history of nicotine dependence; Z95.1 Presence of aortocoronary bypass graft; Z88.0 Allergy status to penicillin; Z88.7 Allergy status to serum and vaccine; Z88.8 Allergy status to other drugs, medicaments and biological substances; Z86.718 Personal history of other venous thrombosis and embolism; Z82.49 Family history of ischemic heart disease and other diseases of the circulatory system; Z79.899 Other long term (current) drug therapy; Z68.28 Body mass index [BMI] 28.0-28.9, adult
CPT/HCPCS: 36415; 43255; 71045; 74176; 76937; 80053; 80162; 81003; 82272; 82948; 83010; 83036; 83540; 83550; 83605; 83735; 83880; 84100; 84132; 84145; 84484; 85025; 85027; 85610; 85730; 86880; 86885; 86886; 86900; 86901; 86920; 87040; 87081; 93005; 93308; 96365; 96366; 96368; 96376; 97110; 97116; 97162; 97530; 99152; 99285; C9113; G0378; J0171; J0282; J0692; J2250; J2916; J3010; J3480; J3490; P9016